=== PATIENT | female | born 1945 | race Caucasian/White ===

== ENCOUNTER 2017-09-24 12:17 | Emergency (ER) | payer OTHER ==
--- NOTE | 2017-09-24 14:29 | EDPHYS ---
Physician Documentation [facility] Name: Carmina Salcido Age: 72 yrs Sex: Female : 1945 Arrival Date: 09/24/2017 Time: 12:19 Bed 26 Private MD: ED Physician Toan Rolon HPI: 09/24 16:30 This 72 yrs old Female presents to ER via Ambulatory with complaints of AFIB. snw 16:30 The patient or guardian reports airway noise, cough. Onset: The symptoms/episode snw began/occurred 1 week(s) ago, and became persistent. Associated signs and symptoms: Pertinent positives: rhinorrhea, Pertinent negatives: chest pain, palpitations. Severity of symptoms: At their worst the symptoms were moderate in the emergency department the symptoms are unchanged. The patient has experienced similar episodes in the past. The patient has been recently seen by a physician: an allergy/cessation systems outreach specialist, in the office, with similar presenting complaints, and was sent to the [facility] Emergency Department for further evaluation, of a. fib. Pt reports she called Dr. Larsen' office and she has a long hx of a. fib. Pt wants to leave ED and go get her medications for her current dx of bronchitic/sinusitis from Dr. Salguero. denies CP, palpitations. Historical: - Allergies: 12:36 PENICILLINS; lk1 - PMHx: 12:36 Atrial Fib; breast cancer; CHF; Hypertension; lk1 - PSHx: 12:36 Tonsillectomy; Hysterectomy; breast cancer; lk1 - Immunization history:: Adult Immunizations up to date. - Social history:: Smoking status: Patient/guardian denies using tobacco. ROS: 16:29 Constitutional: Negative for fever, chills, and weight loss, Eyes: Negative for injury, snw pain, redness, and discharge, ENT: Negative for injury, pain, and discharge, Neck: Negative for injury, pain, and swelling, Cardiovascular: Negative for chest pain, palpitations, and edema, Abdomen/GI: Negative for abdominal pain, nausea, vomiting, diarrhea, and constipation, Back: Negative for injury and pain, : Negative for injury, bleeding, discharge, and swelling, MS/Extremity: Negative for injury and deformity, Skin: Negative for injury, rash, and discoloration, Neuro: Negative for headache, weakness, numbness, tingling, and seizure. 16:29 Respiratory: Positive for cough, wheezing. Exam: 16:27 Constitutional: This is a well developed, well nourished patient who is awake, alert, snw and in no acute distress. Head/Face: Normocephalic, atraumatic. Eyes: Pupils equal round and reactive to light, extra-ocular motions intact. Lids and lashes normal. Conjunctiva and sclera are non-icteric and not injected. Cornea within normal limits. Periorbital areas with no swelling, redness, or edema. ENT: Nares patent. No nasal discharge, no septal abnormalities noted. Tympanic membranes are normal and external auditory canals are clear. Oropharynx with no redness, swelling, or masses, exudates, or evidence of obstruction, uvula midline. Mucous membranes moist. Neck: Trachea midline, no thyromegaly or masses palpated, and no cervical lymphadenopathy. Supple, full range of motion without nuchal rigidity, or vertebral point tenderness. No Meningismus. Chest/axilla: Normal chest wall appearance and motion. Nontender with no deformity. No lesions are appreciated. Abdomen/GI: Soft, non-tender, with normal bowel sounds. No distension or tympany. No guarding or rebound. No evidence of tenderness throughout. Back: No spinal tenderness. No costovertebral tenderness. Full range of motion. Skin: Warm, dry with normal turgor. Normal color with no rashes, no lesions, and no evidence of cellulitis. 16:27 MS/ Extremity: Pulses equal, no cyanosis. Neurovascular intact. Full, normal range of motion. Neuro: Awake and alert, GCS 15, oriented to person, place, time, and situation. Cranial nerves II-XII grossly intact. Motor strength 5/5 in all extremities. Sensory grossly intact. Cerebellar exam normal. Normal gait. Psych: Awake, alert, with orientation to person, place and time. Behavior, mood, and affect are within normal limits. 16:27 Cardiovascular: Rate: tachycardic, Rhythm: irregularly irregular, Pulses: no pulse deficits are appreciated, Heart sounds: normal. 16:27 Respiratory: the patient does not display signs of respiratory distress, Respirations: normal, Breath sounds: are clear throughout, bronchitic cough. Vital Signs: 12:36 BP 168 / 100; Pulse 132; Resp 16; Temp 98.3; Pulse Ox 96% ; Weight 97.98 kg (R); Height lk1 5 ft. 5 in. (165.10 cm) (R); Pain 0/10; 13:16 BP 141 / 108; Pulse 107; Resp 20; Pulse Ox 95% on R/A; aj1 14:20 BP 150 / 98; Pulse 102; Resp 20; Pulse Ox 95% on R/A; aj1 12:36 Body Mass Index 35.94 (97.98 kg, 165.10 cm) lk1 MDM: 13:41 Patient medically screened. snw 16:29 Data reviewed: vital signs, nurses notes. Data interpreted: Pulse oximetry: on room air snw is 95 %. Interpretation: acceptable. Counseling: I had a detailed discussion with the patient and/or guardian regarding: the historical points, exam findings, and any diagnostic results supporting the discharge/admit diagnosis, the presence of at least one elevated blood pressure reading (>120/80) during this emergency department visit, the need for outpatient follow up, to return to the emergency department if symptoms worsen or persist or if there are any questions or concerns that arise at home. Special discussion: I have referred the patient to see his PCP for further evaluation of high blood pressure. Based on the history and exam findings, there is no indication for further emergent testing or inpatient evaluation. I discussed with the patient/guardian the need to see the administrative support associate for further evaluation of the symptoms. I discussed with the patient/guardian the need to see the primary care provider for further evaluation of the symptoms. Administered Medications: No medications were administered Disposition: 09/25 06:15 Co-signature as Attending Physician, Toan Rolon MD. Disposition: 09/24/17 14:28 Discharged to Home. 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 - Condition is Stable. - Discharge Instructions: Acute Bronchitis, How to Use an Inhaler. - Medication Reconciliation Form, Thank You Letter, Antibiotic Education, Prescription Opioid Use form. - Follow up: Private Physician; When: 1 - 2 days; Reason: Recheck today's complaints, Continuance of care, Re-evaluation by your physician. Follow up: Emergency Department; When: As needed; Reason: Worsening of condition. Signatures: Jess Samuels, HULL SORTER-C HULL SORTER-Csnw Deysi Jc, RN RN aa5 Manisha Lopez RN RN lk1 Toan Rolon MD MD gs Corrections: (The following items were deleted from the chart) 09/24 14:45 14:28 09/24/2017 14:28 Discharged to Home. 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 Condition is Stable. Forms are Medication Reconciliation Form, Thank You Letter, Antibiotic Education, Prescription Opioid Use. Follow up: Private Physician; When: 1 - 2 days; Reason: Recheck today's complaints, Continuance of care, Re-evaluation by your physician. Follow up: Emergency Department; When: As needed; Reason: Worsening of condition. snw
--- NOTE | 2017-09-24 14:29 | ER ---
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 I was at the allergy doctor this morning and they found me to be in a-fib again. I haven't been in that rhythm for years and they wanted me to get checked out. Transition of care: patient was not received from another setting of care. Onset of symptoms is unknown. Initial Sepsis Screen: Does the patient meet any 2 criteria? No. Patient's initial sepsis screen is negative. Does the patient have a suspected source of infection? No. Patient's initial sepsis screen is negative. Care prior to arrival: None. 12:33 Method Of Arrival: Ambulatory lk1 12:33 Acuity: ALANA 3 lk1 Triage Assessment: 12:36 General: Appears in no apparent distress. ill, Behavior is calm, cooperative, lk1 appropriate for age. Pain: Denies pain. Respiratory: Airway is patent Respiratory effort is even, unlabored, Respiratory pattern is regular, symmetrical, Sputum is thick, brown green. Historical: - Allergies: 12:36 PENICILLINS; lk1 - PMHx: 12:36 Atrial Fib; breast cancer; CHF; Hypertension; lk1 - PSHx: 12:36 Tonsillectomy; Hysterectomy; breast cancer; lk1 - Immunization history:: Adult Immunizations up to date. - Social history:: Smoking status: Patient/guardian denies using tobacco. Screenin:23 Abuse screen: Denies threats or abuse. Denies injuries from another. Nutritional aj1 screening: No deficits noted. Tuberculosis screening: No symptoms or risk factors identified. Assessment: 12:54 Reassessment: Spoke with Dr. Salguero. He told me that he spoke with Dr. Larsen, and was aj1 told that the patient is chronically in A-Fib, and requests that the patient call him back at his office. Patient was told and will call right now. 13:23 General: Appears in no apparent distress. comfortable, Behavior is calm, cooperative, aj1 appropriate for age. Pain: Denies pain. Neuro: Level of Consciousness is awake, alert, obeys commands, Oriented to person, place, time, situation, Speech is normal, Facial symmetry appears normal. Cardiovascular: Heart tones S1 S2 present Patient's skin is warm and dry. Rhythm is irregular Chest pain is denied. Respiratory: Reports cough that is productive, Airway is patent Respiratory effort is even, unlabored, Respiratory pattern is regular, symmetrical, Breath sounds are coarse bilaterally. GI: No signs and/or symptoms were reported involving the gastrointestinal system. : No signs and/or symptoms were reported regarding the genitourinary system. EENT: Reports nasal congestion nasal discharge sinus pressure. Derm: No signs and/or symptoms reported regarding the dermatologic system. Skin is pink, warm \T\ dry. normal. Musculoskeletal: No signs and/or symptoms reported regarding the musculoskeletal system. Circulation, motion, and sensation intact. 14:20 Reassessment: Patient appears in no apparent distress at this time. No changes from aj1 previously documented assessment. Patient and/or family updated on plan of care and expected duration. Pain level reassessed. Patient is alert, oriented x 3, equal unlabored respirations, skin warm/dry/pink. 14:43 Reassessment: Patient is alert, oriented x 3, equal unlabored respirations, skin aa5 warm/dry/pink. Vital Signs: 12:36 BP 168 / 100; Pulse 132; Resp 16; Temp 98.3; Pulse Ox 96% ; Weight 97.98 kg (R); Height lk1 5 ft. 5 in. (165.10 cm) (R); Pain 0/10; 13:16 BP 141 / 108; Pulse 107; Resp 20; Pulse Ox 95% on R/A; aj1 14:20 BP 150 / 98; Pulse 102; Resp 20; Pulse Ox 95% on R/A; aj1 12:36 Body Mass Index 35.94 (97.98 kg, 165.10 cm) lk1 ED Course: 12:19 Patient arrived in ED. sb2 12:35 Triage completed. lk1 12:38 Arm band placed on right wrist. lk1 12:54 Kyara Richardson, RN is Primary Nurse. aj1 13:23 Patient has correct armband on for positive identification. aj1 13:23 No provider procedures requiring assistance completed. aj1 13:34 Jess Samuels FNP-C [facility]. snw 13:34 Toan Rolon MD is Attending Physician. snw 14:43 Patient did not have IV access during this emergency room visit. aa5 Administered Medications: No medications were administered Outcome: 14:28 Discharge ordered by . snw 14:43 Discharged to home ambulatory, with significant other. aa5 14:43 Condition: stable 14:43 Discharge instructions given to patient, significant other, Instructed on discharge instructions, follow up and referral plans. Demonstrated understanding of instructions, follow-up care. 14:45 Patient left the ED. aa5 Signatures: Kyara Richardson RN RN aj1 Jess Samuels FNP-C [employer]W MEMBER-Csnw Deysi Jc RN RN aa5 Manisha Lopez RN RN lk1 Loyda Marquez sb2
--- NOTE | 2017-09-24 19:48 | EKG ---
Test Date: 2017-09-24 Test Time: 12:51:44 Kiln Packer: RAFAEL MEASUREMENT RESULTS: Intervals: Rate: 117 IA: QRSD: 138 QT: 354 QTc: 493 [place]: P: IA: QRS: -51 T: 160 INTERPRETIVE STATEMENTS: Wide QRS rhythm with occasional premature ventricular complexes and fusion complexes Right bundle branch block Left anterior fascicular block Bifascicular block Left ventricular hypertrophy with repolarization abnormality Abnormal ECG Compared to ECG 04/04/2017 06:36:44 Uncertain supraventricular rhythm now present Fusion complex(es) now present Left anterior fascicular block now present Bifascicular block now present Early repolarization now present Atrial fibrillation no longer present Myocardial infarct finding no longer present Electronically Signed On 09-24-17 19:47:11 CDT by Clay Larsen
== END 2017-09-24 14:45 | disposition home or self-care (01) ==
LOC: ER 12:17
DX: J40 Bronchitis, not specified as acute or chronic (principal); Z71.1 Person with feared health complaint in whom no diagnosis is made; Z88.0 Allergy status to penicillin
CPT/HCPCS: 93005; 99281

== ENCOUNTER 2019-06-27 16:37 | Emergency (ER) | payer OTHER ==
--- OUTSIDE RECORDS SUMMARY | 2019-06-27 16:38 | XMS REPORT ---
:1945 [facility] Address [address] [place] [address] [place] [id number] Care Team Providers Name Role Phone Unavailable Unavailable Unavailable Problems This patient has no known problems. Allergies, Adverse Reactions, Alerts This patient has no known allergies or adverse reactions. Medications This patient has no known medications.
[2019-06-27] MEDS ORDERED: NA CHLORIDE 0.9% 500 ML ONE (17:44)
[2019-06-27] MEDS ORDERED: ACETAMINOPHEN 500 MG TAB ONE (17:44)
[2019-06-27 17:52] LABS: Absolute Lymphocytes (CBC) 0.4 K/uL (0.7-4.9); Hematocrit 39.2 % (36.0-45.0); Lymphocytes % 7.5 % (15.3-44.8); MPV 8.4 fL (7.6-11.3); RBC Red Blood Cell Count 4.14 M/uL (3.86-4.86)
--- NOTE | 2019-06-27 17:56 | RAD REPORT ---
EXAM DESCRIPTION: RAD - Chest Single View - 06/27/2019 5:31 pm CLINICAL HISTORY: COUGH COMPARISON: Chest Single View dated 04/03/2017 TECHNIQUE: AP portable chest image was obtained 06/27/2019 5:31 pm . FINDINGS: No peripheral mass or consolidation. Chronic interstitial lung pattern matches comparison. Severity of baseline pattern could mask early edema or infiltrate. Patient has cardiomegaly. Vascula ture is mildly prominent but similar to comparison. Trachea is midline. No measurable pleural effusio n and no pneumothorax. No acute bony abnormality seen. No acute aortic findings suspected. IMPRESSION: Chronic interstitial lung pattern without peripheral mass or consolidation. Cardiomegaly similar to comparison. Severity of chronic disease could mask early interstitial edema or infiltrate.
[2019-06-27 18:04] LABS: Potassium 4.2 mmol/L (3.5-5.1)
--- NOTE | 2019-06-27 18:47 | EDPHYS ---
Physician Documentation [facility] Name: Carmina Salcido Age: 73 yrs Sex: Female : 1945 Arrival Date: 06/27/2019 Time: 16:39 Bed 25 Private MD: Ananth Luong E ED Physician Chadd Cameron HPI: 06/27 17:09 This 73 yrs old Female presents to ER via Wheelchair with complaints of Cough.rn 17:09 The patient or guardian reports cough. rn 17:09 Onset: The symptoms/episode began/occurred yesterday. Severity of symptoms: At their rn worst the symptoms were mild, in the emergency department the symptoms are unchanged. Modifying factors: The symptoms are alleviated by nothing, the symptoms are aggravated by nothing. The patient has experienced similar episodes in the past. Reports cough since yesterday, reports sometimes gets allergy problems with cough like this and usually goes away with zithromax. Was not aware of fever until arrival. No hemoptysis. . Historical: - Allergies: 17:08 PENICILLINS; iw - Home Meds: 17:08 Flonase 50 mcg/actuation nasal spsn 2 sprays once daily [Active]; lansoprazole 30 mg iw oral cpDR 1 cap once daily [Active]; potassium chloride 10 mEq Oral cpER 2 caps once daily [Active]; losartan 100 mg Oral tab 1 tab once daily [Active]; metoprolol succinate 100 mg oral Tb24 1 tab once daily [Active]; Pradaxa 150 mg oral cap 1 cap 2 times per day [Active]; torsemide 20 mg oral tab 1 tab once daily [Active]; glipizide 5 mg Oral tab 1 tab 2 times per day [Active]; - PMHx: 17:08 Atrial Fib; breast cancer; CHF; Hypertension; iw - PSHx: 17:08 Hysterectomy; Mastectomy, Right; iw - Immunization history:: Adult Immunizations not up to date. - Coronavirus screen:: The patient has NOT traveled to [place] in the past 14 days. Proceed with normal triage process as indicated. - Social history:: Smoking status: Patient denies any tobacco usage or history of. - Family history:: not pertinent. - Ebola Screening: : Patient negative for fever greater than or equal to 101.5 degrees Fahrenheit, and additional compatible Ebola Virus Disease symptoms Patient denies exposure to infectious person Patient denies travel to an Ebola-affected area in the 21 days before illness onset No symptoms or risks identified at this time. - Hospitalizations: : No recent hospitalization is reported. ROS: 17:09 Constitutional: + fever Eyes: Negative for injury, pain, redness, and discharge, Neck: rn Negative for injury, pain, and swelling, Cardiovascular: Negative for chest pain, palpitations, and edema, Respiratory: + cough Abdomen/GI: Negative for abdominal pain, nausea, vomiting, diarrhea, and constipation, MS/Extremity: Negative for injury and deformity, Skin: Negative for injury, rash, and discoloration, Neuro: Negative for headache, weakness, numbness, tingling, and seizure. Exam: 17:09 Constitutional: This is a well developed, well nourished patient who is awake, alert, rn and in no acute distress. Head/Face: Normocephalic, atraumatic. ENT: dry MM, no stridor or swelling Cardiovascular: tachycardic, irregular Respiratory: + crackles bilaterally, mild tachypnea, no retractions Abdomen/GI: soft, non-tender MS/ Extremity: Pulses equal, no cyanosis. Neurovascular intact. Full, normal range of motion. Equal circumference. Neuro: Awake and alert, GCS 15, oriented to person, place, time, and situation. Cranial nerves II-XII grossly intact. Motor strength 5/5 in all extremities. Sensory grossly intact. Vital Signs: 16:55 BP 167 / 98; Pulse 117; Resp 20; Temp 102.0; Pulse Ox 96% on R/A; Weight 90.72 kg; iw Height 5 ft. 5 in. (165.10 cm); Pain 0/10; 18:30 BP 161 / 92; Pulse 108; Resp 18; Temp 100.9; Pulse Ox 96% on R/A; vc 16:55 Body Mass Index 33.28 (90.72 kg, 165.10 cm) iw MDM: 16:52 Patient medically screened. rn 18:45 Differential Diagnosis: Bronchitis Influenza Upper Respiratory Infection Viral Syndrome rn Pneumonia. Data reviewed: vital signs, nurses notes, lab test result(s), radiologic studies, plain films, and as a result, I will discharge patient. Counseling: I had a detailed discussion with the patient and/or guardian regarding: the historical points, exam findings, and any diagnostic results supporting the discharge/admit diagnosis, lab results, radiology results, the need for outpatient follow up, to return to the emergency department if symptoms worsen or persist or if there are any questions or concerns that arise at home. Response to treatment: the patient's symptoms have mildly improved after treatment, and as a result, I will discharge patient. Special discussion: I discussed with the patient/guardian in detail that at this point there is no indication for admission to the hospital. It is understood, however, that if the symptoms persist or worsen the patient needs to return immediately for re-evaluation. ED course: Pt with influenza A, no pneumonia on CXR, states feels much better after fluids, no oxygen requirement, denies dyspnea. Offered observation given flu and age, patient requests to go home, promises to return if worsens. . 06/27 16:59 Order name: CBC with Diff; Complete Time: 18:07 rn 06/27 16:59 Order name: Basic Metabolic Panel; Complete Time: 18:27 rn 06/27 16:59 Order name: Procalcitonin rn 06/27 16:59 Order name: Flu; Complete Time: 18:36 rn 06/27 16:59 Order name: Blood Culture Adult (2) rn 06/27 16:59 Order name: Lactate rn 06/27 16:59 Order name: IV Start; Complete Time: 17:49 rn 06/27 16:59 Order name: XRAY Chest (1 view) rn Administered Medications: 17:49 Drug: Tylenol 1000 mg Route: PO; vc 18:15 Follow up: Response: No adverse reaction; Temperature is decreased vc 17:49 Drug: NS 0.9% 500 ml Route: IV; Rate: bolus; Site: left forearm; vc 18:50 Drug: Tamiflu 75 mg Route: PO; vc 18:50 Follow up: Response: Medication administered at discharge. vc Disposition: 06/27/19 18:46 Discharged to Home. Impression: Influenza due to identified novel influenza A virus. - Condition is Stable. - Discharge Instructions: Influenza, Adult. - Prescriptions for Tamiflu 75 mg Oral Capsule - take 1 capsule by ORAL route every 12 hours for 5 days; 10 capsule. - Medication Reconciliation Form, Thank You Letter, Antibiotic Education, Prescription Opioid Use form. - Follow up: Private Physician; When: 1 - 2 days; Reason: Recheck today's complaints, Re-evaluation by your physician. - Problem is new. - Symptoms have improved. Signatures: Dispatcher [employer] EDEse Wagoner RN RN iw Nieto, Roman, MD MD rn Calcote, Vanessa, RN RN vc Corrections: (The following items were deleted from the chart) 19:03 18:46 06/27/2019 18:46 Discharged to Home. Impression: Influenza due to identified vc novel influenza A virus. Condition is Stable. Forms are Medication Reconciliation Form, Thank You Letter, Antibiotic Education, Prescription Opioid Use. Follow up: Private Physician; When: 1 - 2 days; Reason: Recheck today's complaints, Re-evaluation by your physician. Problem is new. Symptoms have improved. rn
--- NOTE | 2019-06-27 18:47 | ER ---
Nurse's Notes [facility] Name: Carmina Salcido Age: 73 yrs Sex: Female : 1945 Arrival Date: 06/27/2019 Time: 16:39 Bed 25 Private MD: Ananth Luong E Diagnosis: Influenza due to identified novel influenza A virus Presentation: 06/27 16:56 Presenting complaint: Presenting complaint: Patient states: was sent from Dr. Daisy STOVALL iw office for productive cough and persistent tachycardia, crackles on lung exam, pt has hx of afib. 17:01 Transition of care: patient was not received from another setting of care. Onset of iw symptoms was June 27, 2019. Risk Assessment: Do you want to hurt yourself or someone else? Patient reports no desire to harm self or others. Initial Sepsis Screen: Does the patient meet any 2 criteria? Temp <36.0*C (96.8*F)) or > 38.3*C (100.9*F). HR > 90 bpm. Does the patient have a suspected source of infection? Yes: Productive cough/pneumonia. Initial Sepsis Screen: If YES to both, name of provider notified: Chadd Cameron MD Care prior to arrival: None. 17:01 Method Of Arrival: Wheelchair iw 17:01 Acuity: ALANA 2 iw Triage Assessment: 17:15 General: Appears in no apparent distress. uncomfortable, ill, Behavior is calm, vc cooperative, appropriate for age. Pain: Complains of pain in generalized aches and pains. EENT: No signs and/or symptoms were reported regarding the EENT system. Neuro: Level of Consciousness is awake, alert, obeys commands, Oriented to person, place, time, situation. Cardiovascular: Patient's skin is warm and dry. Respiratory: Respiratory effort is even, unlabored, Respiratory pattern is regular, symmetrical. GI: No signs and/or symptoms were reported involving the gastrointestinal system. : No signs and/or symptoms were reported regarding the genitourinary system. Derm: Skin temperature is hot. Musculoskeletal: Circulation, motion, and sensation intact. Historical: - Allergies: 17:08 PENICILLINS; iw - Home Meds: 17:08 Flonase 50 mcg/actuation nasal spsn 2 sprays once daily [Active]; lansoprazole 30 mg iw oral cpDR 1 cap once daily [Active]; potassium chloride 10 mEq Oral cpER 2 caps once daily [Active]; losartan 100 mg Oral tab 1 tab once daily [Active]; metoprolol succinate 100 mg oral Tb24 1 tab once daily [Active]; Pradaxa 150 mg oral cap 1 cap 2 times per day [Active]; torsemide 20 mg oral tab 1 tab once daily [Active]; glipizide 5 mg Oral tab 1 tab 2 times per day [Active]; - PMHx: 17:08 Atrial Fib; breast cancer; CHF; Hypertension; iw - PSHx: 17:08 Hysterectomy; Mastectomy, Right; iw - Immunization history:: Adult Immunizations not up to date. - Coronavirus screen:: The patient has NOT traveled to [place] in the past 14 days. Proceed with normal triage process as indicated. - Social history:: Smoking status: Patient denies any tobacco usage or history of. - Family history:: not pertinent. - Ebola Screening: : Patient negative for fever greater than or equal to 101.5 degrees Fahrenheit, and additional compatible Ebola Virus Disease symptoms Patient denies exposure to infectious person Patient denies travel to an Ebola-affected area in the 21 days before illness onset No symptoms or risks identified at this time. - Hospitalizations: : No recent hospitalization is reported. Screenin:15 Abuse screen: Denies threats or abuse. Nutritional screening: No deficits noted. vc Tuberculosis screening: No symptoms or risk factors identified. Fall Risk No secondary diagnosis (0 pts). IV access (20 points). Gait- Weak (10 pts.). Total Jose Fall Scale indicates Low Risk Score (25-44 pts). Side Rails Up X 2 Placed close to Nursing Station Family Present and informed to notify staff if they need to leave bedside. Assessment: 17:15 General: Appears in no apparent distress. uncomfortable, ill, Behavior is calm, vc cooperative, appropriate for age. Pain: Complains of pain in generalized aches and pains. Neuro: Level of Consciousness is awake, alert, obeys commands. Cardiovascular: Patient's skin is warm and dry. Cardiovascular: Respiratory: Respiratory effort is even, unlabored, Respiratory pattern is regular, symmetrical. GI: No deficits noted. : No deficits noted. EENT: Throat coughing up clear mucus. Reports. Derm: No signs and/or symptoms reported regarding the dermatologic system. Derm: Derm: Skin temperature is warm. Musculoskeletal: No signs and/or symptoms reported regarding the musculoskeletal system. 17:22 Reassessment: Unable to get blood return from patients IV. Lab to come for lab draw. vc 17:30 Reassessment: emergency medical technician basic at bedside for lab draw. vc 18:30 Reassessment: Patient and/or family updated on plan of care and expected duration. Pain vc level reassessed. Patient is alert, oriented x 3, equal unlabored respirations, skin warm/dry/pink. Patient states feeling better. Patient states symptoms have improved. Vital Signs: 16:55 BP 167 / 98; Pulse 117; Resp 20; Temp 102.0; Pulse Ox 96% on R/A; Weight 90.72 kg; iw Height 5 ft. 5 in. (165.10 cm); Pain 0/10; 18:30 BP 161 / 92; Pulse 108; Resp 18; Temp 100.9; Pulse Ox 96% on R/A; vc 16:55 Body Mass Index 33.28 (90.72 kg, 165.10 cm) iw ED Course: 16:39 Patient arrived in ED. rg4 16:40 Ananth Luong MD is Private Physician. rg4 16:50 Trice Acosta, RHONDA is Primary Nurse. vc 16:52 Chadd Cameron MD is Attending Physician. rn 16:55 Arm band placed on. iw 17:00 Patient has correct armband on for positive identification. vc 17:04 Triage completed. iw 17:06 Missed attempt(s): 20 gauge in left antecubital area. vc 17:10 Missed attempt(s): 22 gauge in left antecubital area. vc 17:20 Inserted saline lock: 20 gauge in left forearm, using aseptic technique. vc 17:42 Flu and/or RSV swab sent to lab. tm3 17:48 XRAY Chest (1 view) In Process Unspecified. EDMS 18:46 No provider procedures requiring assistance completed. vc 19:00 IV discontinued, intact, bleeding controlled, No redness/swelling at site. Pressure vc dressing applied. Administered Medications: 17:49 Drug: Tylenol 1000 mg Route: PO; vc 18:15 Follow up: Response: No adverse reaction; Temperature is decreased vc 17:49 Drug: NS 0.9% 500 ml Route: IV; Rate: bolus; Site: left forearm; vc 18:50 Drug: Tamiflu 75 mg Route: PO; vc 18:50 Follow up: Response: Medication administered at discharge. vc Outcome: 18:46 Discharge ordered by . rn 19:00 Discharged to home via wheelchair, with significant other. vc 19:00 Condition: improved 19:00 Discharge instructions given to patient, significant other, Instructed on discharge instructions, follow up and referral plans. medication usage, Demonstrated understanding of instructions, follow-up care, medications, Prescriptions given X 1. 19:03 Patient left the ED. vc Signatures: Dispatcher [employer] EDMS Quinton Beal tm3 Ese June RN RN iw Chadd Cameron MD MD rn Garcia, Rubi rg4 Trice Acosta RN RN vc Corrections: (The following items were deleted from the chart) 17:04 16:56 Presenting complaint: [facility]
[2019-06-27] MEDS ORDERED: OSELTAMIVIR 75 MG CAP ONE (18:59)
[2019-06-27 19:30] VITALS: BP 167/98; TEMP 102; O2SAT 96
== END 2019-06-27 19:03 | disposition home or self-care (01) ==
LOC: ER 16:37
DX: J10.1 Influenza due to other identified influenza virus with other respiratory manifestations (principal); I10 Essential (primary) hypertension; I50.9 Heart failure, unspecified; I48.91 Unspecified atrial fibrillation; Z88.0 Allergy status to penicillin; Z85.3 Personal history of malignant neoplasm of breast; Z90.11 Acquired absence of right breast and nipple
CPT/HCPCS: 87040 ×2; 85025; 80048; 36415; 83605; 84145; 87804 ×2; 71045; 99284; J7040

== ENCOUNTER 2020-03-28 12:15 | Observation (INO) | payer OTHER ==
--- OUTSIDE RECORDS SUMMARY | 2020-03-28 12:19 | XMS REPORT | Continuity of Care Document ---
:1945 Author Organization [facility] t Address [address] [place] [address] Dr. Gunderson [address] [place] [id number] Care Team Providers Name Role Phone Unavailable Unavailable Unavailable Problems This patient has no known problems. Allergies, Adverse Reactions, Alerts This patient has no known allergies or adverse reactions. Medications This patient has no known medications. Procedures This patient has no known procedures. Results This patient has no known results.
[2020-03-28] MEDS ORDERED: NA CHLORIDE 0.9% 1,000 ML ONE (13:27)
--- NOTE | 2020-03-28 13:33 | RAD REPORT ---
EXAM DESCRIPTION: RAD - Chest Single View - 03/28/2020 1:21 pm CLINICAL HISTORY: COUGH Chest pain. COMPARISON: Chest Single View dated 06/27/2019; Chest Single View dated 04/03/2017; Breast Vac Assist BX w/US Guid dated 10/13/2013; RAD CHEST PA AND LAT (2 VIEWS) dated 10/31/2013; LYMPHOSCINTIGRAPHY date d 11/02/2013; MAMMO DIGITAL DIAG LT UNI WCAD dated 10/11/2013 FINDINGS: Portable technique limits examination quality. Mild interstitial pulmonary edema. The heart is moderately enlarged size. No displaced fractures. IMPRESSION: Mild CHF.
[2020-03-28 13:36] LABS: ALT/SGPT 101 U/L (12-78); AST/SGOT 76 U/L (15-37); Albumin 3.5 g/dL (3.4-5.0); Alkaline Phosphatase 120 U/L (45-117); BUN Blood Urea Nitrogen 42 mg/dL (7-18); Bicarbonate 27 mmol/L (21-32); Bilirubin Direct 0.4 mg/dL (0-0.2); Bilirubin Total 0.9 mg/dL (0.2-1.0); Glucose Level 167 mg/dL (74-106); Magnesium 2.6 mg/dL (1.8-2.4); NT PRO-BNP 1108 pg/mL (<125); Potassium 4.4 mmol/L (3.5-5.1); Protein, Total 7.3 g/dL (6.4-8.2); Sodium Level 138 mmol/L (136-145); Troponin (Emerg Dept Use Only) < 0.02 ng/mL (0.0-0.045)
[2020-03-28 13:55] LABS: Basophils % 0.4 % (0-1.3); Hematocrit 37.6 % (36.0-45.0); MPV 8.9 fL (7.6-11.3); RBC Red Blood Cell Count 3.94 M/uL (3.86-4.86)
[2020-03-28 14:01] LABS: Protime INR 1.27
[2020-03-28 14:43] LABS: Thyroid Stimulating Hormone 5.08 uIU/mL (0.360-3.740)
--- NOTE | 2020-03-28 15:12 | EDPHYS ---
Physician Documentation [facility] Name: Carmina Salcido Age: 74 yrs Sex: Female : 1945 Arrival Date: 03/28/2020 Time: 12:17 Bed 14 Private MD: JAMES Physician Keith Gonzalez HPI: 03/28 15:03 This 74 yrs old Female presents to ER via Wheelchair with complaints of epi Abnormal EKG. 15:03 The patient has shortness of breath at rest, with light activity. Onset: The epi symptoms/episode began/occurred just prior to arrival. Duration: The symptoms are chronic, are continuous. The patient's shortness of breath has no apparent modifying factors. The patient presents with a history of irregular heart beat. Context: The symptoms occur at rest. Onset: The symptoms/episode began/occurred 1 week(s) ago. Duration: The patient or guardian reports multiple episodes, that are intermittent. Associated signs and symptoms: Pertinent positives: non-productive cough. Historical: - Allergies: 12:49 PENICILLINS; ca1 - PMHx: 12:49 Atrial Fib; breast cancer; CHF; Hypertension; ca1 - PSHx: 12:49 Hysterectomy; Mastectomy, Right; ca1 - Immunization history:: Adult Immunizations up to date, Flu vaccine is up to date. - Social history:: Smoking status: Patient denies any tobacco usage or history of. - Family history:: not pertinent. ROS: 15:03 Constitutional: Negative for fever, chills, and weight loss, Eyes: Negative for injury, epi pain, redness, and discharge, ENT: Negative for injury, pain, and discharge, Neck: Negative for injury, pain, and swelling, Abdomen/GI: Negative for abdominal pain, nausea, vomiting, diarrhea, and constipation, Back: Negative for injury and pain, : Negative for injury, bleeding, discharge, and swelling, MS/Extremity: Negative for injury and deformity, Skin: Negative for injury, rash, and discoloration, Neuro: Negative for headache, weakness, numbness, tingling, and seizure, Psych: Negative for depression, anxiety, suicide ideation, homicidal ideation, and hallucinations, Allergy/Immunology: Negative for hives, rash, and allergies, Endocrine: Negative for neck swelling, polydipsia, polyuria, polyphagia, and marked weight changes, Hematologic/Lymphatic: Negative for swollen nodes, abnormal bleeding, and unusual bruising. 15:03 Cardiovascular: Positive for palpitations. 15:03 Respiratory: Positive for cough, shortness of breath, at rest. Exam: 15:03 Constitutional: This is a well developed, well nourished patient who is awake, alert, epi and in no acute distress. Head/Face: Normocephalic, atraumatic. Eyes: Pupils equal round and reactive to light, extra-ocular motions intact. Lids and lashes normal. Conjunctiva and sclera are non-icteric and not injected. Cornea within normal limits. Periorbital areas with no swelling, redness, or edema. ENT: Nares patent. No nasal discharge, no septal abnormalities noted. Tympanic membranes are normal and external auditory canals are clear. Oropharynx with no redness, swelling, or masses, exudates, or evidence of obstruction, uvula midline. Mucous membranes moist. Neck: Trachea midline, no thyromegaly or masses palpated, and no cervical lymphadenopathy. Supple, full range of motion without nuchal rigidity, or vertebral point tenderness. No Meningismus. Chest/axilla: Normal chest wall appearance and motion. Nontender with no deformity. No lesions are appreciated. Abdomen/GI: Soft, non-tender, with normal bowel sounds. No distension or tympany. No guarding or rebound. No evidence of tenderness throughout. Back: No spinal tenderness. No costovertebral tenderness. Full range of motion. Female : Normal external genitalia. Skin: Warm, dry with normal turgor. Normal color with no rashes, no lesions, and no evidence of cellulitis. MS/ Extremity: Pulses equal, no cyanosis. Neurovascular intact. Full, normal range of motion. Neuro: Awake and alert, GCS 15, oriented to person, place, time, and situation. Cranial nerves II-XII grossly intact. Motor strength 5/5 in all extremities. Sensory grossly intact. Cerebellar exam normal. Normal gait. Psych: Awake, alert, with orientation to person, place and time. Behavior, mood, and affect are within normal limits. 15:03 Cardiovascular: Rate: bradycardic, Rhythm: irregular, Pulses: Pulses are 4+ in bilateral radial, brachial, femoral, popliteal, posterior tibial and and dorsalis pedis arteries.. Heart sounds: normal, Edema: is not appreciated, JVD: is noted bilaterally, to 1 cm. 16:31 ECG was reviewed by the Attending Physician. epi 16:33 ECG was reviewed by the Attending Physician. epi Vital Signs: 12:43 BP 201 / 78; Pulse 40; Resp 20; Temp 98.0(TE); Pulse Ox 99% on R/A; Weight 99.79 kg ca1 (R); Height 5 ft. 5 in. (165.10 cm); Pain 0/10; 13:00 Pulse 36 MON; ca1 13:29 BP 180 / 64; Pulse 35; Resp 16 S; Pulse Ox 100% on R/A; ca1 14:30 BP 179 / 98; Pulse 79; Resp 16 S; Pulse Ox 100% on R/A; ca1 15:30 BP 181 / 86; Pulse 76; Resp 16 S; Pulse Ox 100% on R/A; ca1 16:30 BP 176 / 103; Pulse 75; Resp 19 S; Pulse Ox 100% on R/A; ca1 17:13 BP 170 / 108; Pulse 88; Resp 19 S; Pulse Ox 100% on R/A; ca1 18:10 BP 180 / 104; Pulse 89; Resp 18 S; Pulse Ox 97% on R/A; ca1 19:00 BP 165 / 97; Pulse 90; Resp 16 S; Pulse Ox 99% on R/A; ca1 20:07 BP 159 / 85; Pulse 82; Resp 20 S; Pulse Ox 100% on R/A; ca1 12:43 Body Mass Index 36.61 (99.79 kg, 165.10 cm) ca1 MDM: 12:55 Patient medically screened. epi 15:08 Differential diagnosis: Anemia CHF exacerbation, Chronic Obstructive Pulmonary Disease epi arrythmia, Myocardial Infarction pneumonia, pulmonary edema, reactive airway disease. Antibiotic administration: Not indicated. The patient's Wells Deep Vein Thrombosis Score was calculated as follows: Total Score: 0-2 Pts- Low Risk. The patient's pulmonary embolism risk score was calculated as follows: Total Score: 0-2 points. This patient was found to be at low risk for a pulmonary embolism by using the Well's assessment criteria. Immunization status: Pneumococcal vaccine: Influenza vaccine: Data reviewed: vital signs, nurses notes, lab test result(s), EKG, radiologic studies, plain films. Data interpreted: personnel monitor: rate is 41 beats/min, rhythm is atrial fibrillation, atrial flutter. Test interpretation: by ED physician or midlevel provider: ECG, plain radiologic studies. Counseling: I had a detailed discussion with the patient and/or guardian regarding: the historical points, exam findings, and any diagnostic results supporting the discharge/admit diagnosis, the presence of at least one elevated blood pressure reading (>120/80) during this emergency department visit, lab results, radiology results, the need for further work-up and treatment in the hospital. 03/28 12:56 Order name: Basic Metabolic Panel; Complete Time: 14:08 [facility] 03/28 12:56 Order name: CBC with Diff; Complete Time: 14: [facility] 03/28 12:56 Order name: LFT's; Complete Time: 14: [facility] 03/28 12:56 Order name: Magnesium; Complete Time: 14: [facility] 03/28 12:56 Order name: NT PRO-BNP; Complete Time: 14:08 [facility] 03/28 12:56 Order name: PT-INR; Complete Time: 15:02 [facility] 03/28 12:56 Order name: Troponin (emerg Dept Use Only); Complete Time: 14: [facility] 03/28 12:56 Order name: XRAY Chest (1 view); Complete Time: 14: [facility] 03/28 14:06 Order name: TSH; Complete Time: 15:02 [facility] 03/28 14:44 Order name: T4 Free; Complete Time: 15:02 [facility] 03/28 15:17 Order name: Urine Culture [facility] 03/28 15:18 Order name: Urine Dipstick--Ancillary (enter results) em1 03/28 12:56 Order name: EKG; Complete Time: 12:57 [facility] 03/28 12:56 Order name: Cardiac monitoring; Complete Time: 13: [facility] 03/28 12:56 Order name: EKG - Nurse/Tech; Complete Time: 13: [facility] 03/28 12:56 Order name: IV Saline Lock; Complete Time: 13: [facility] 03/28 12:56 Order name: Labs collected and sent; Complete Time: 13: [facility] 03/28 12:56 Order name: O2 Per Protocol; Complete Time: 13: [facility] 03/28 12:56 Order name: O2 Sat Monitoring; Complete Time: 13: [facility] 03/28 12:56 Order name: Urine Dipstick-Ancillary (obtain specimen); Complete Time: 15:17 epi EC:31 Rate is 41 beats/min. Rhythm is irregular. QRS [place] is Normal. RI interval is normal. epi QRS interval is normal. QT interval is normal. No Q waves. T waves are Normal. No ST changes noted. Clinical impression: Atrial Flutter. Interpreted by me. Reviewed by me. 16:33 Rate is 81 beats/min. Rhythm is irregularly irregular. QRS [place] is Normal. RI interval epi is normal. QRS interval is normal. QT interval is normal. No Q waves. T waves are Normal. No ST changes noted. Clinical impression: Atrial Fibrillation. Interpreted by me. Reviewed by me. Administered Medications: Discontinued: NS 0.9% 1000 ml IV at 125 ml/hr continuous 13:12 Drug: NS 0.9% 1000 ml Route: IV; Rate: 125 ml/hr; Site: right antecubital; ca1 14:08 Follow up: IV Status: Order to discontinue infusion ca1 15:12 Drug: Pepcid 20 mg Route: IVP; Site: left antecubital; ca1 16:24 Follow up: Response: No adverse reaction ca1 15:14 Drug: Lasix 20 mg Route: IVP; Site: left antecubital; ca1 16:24 Follow up: Response: No adverse reaction ca1 15:21 Drug: Rocephin 1 grams Route: IV; Rate: per protocol; Site: left antecubital; ca1 15:35 Follow up: Response: No adverse reaction; IV Status: Completed infusion ca1 16:47 Drug: Pradaxa 150 mg Route: PO; ca1 20:09 Follow up: Response: No adverse reaction ca1 Disposition: 03/28/20 15:11 Hospitalization ordered by Angel Landry for Observation. Preliminary diagnosis are Atrial fibrillation and flutter - with SVR, Unspecified combined systolic (congestive) and diastolic (congestive) heart failure. - Bed requested for Telemetry/MedSurg (observation). - Status is Observation. ca1 - Condition is Fair. - Problem is new. - Symptoms have improved. Signatures: Dispatcher [employer] Randi Fajardo RN RN dw Keith Gonzalez MD MD cha Acob, Cheryl, RN RN ca1 Corrections: (The following items were deleted from the chart) 18:40 15:11 Hospitalization Ordered by Angel Landry for Observation. Preliminary diagnosis dw is Atrial fibrillation and flutter - with SVR; Unspecified combined systolic (congestive) and diastolic (congestive) heart failure. Bed requested for Telemetry/MedSurg (observation). Status is Observation. Condition is Fair. Problem is new. Symptoms have improved. epi 20:23 18:40 03/28/2020 15:11 Hospitalization Ordered by Angel Landry for Observation. ca1 Preliminary diagnosis is Atrial fibrillation and flutter - with SVR; Unspecified combined systolic (congestive) and diastolic (congestive) heart failure. Bed requested for Telemetry/MedSurg (observation). Status is Observation. Condition is Fair. Problem is new. Symptoms have improved. dw
--- NOTE | 2020-03-28 15:12 | ER ---
Nurse's Notes [facility] Name: Carmina Salcido Age: 74 yrs Sex: Female : 1945 Arrival Date: 03/28/2020 Time: 12:17 Bed 14 Private MD: Diagnosis: Atrial fibrillation and flutter-with SVR;Unspecified combined systolic (congestive) and diastolic (congestive) heart failure Presentation: 03/28 12:43 Chief complaint: Patient states: I just left my regular check up appointment with Dr. skyler Luong and they did an EKG and it was abnormal. Coronavirus screen: Client denies travel out of the [place] in the last 14 days. Ebola Screen: No symptoms or risks identified at this time. 12:43 Method Of Arrival: Wheelchair ca1 12:48 Initial Sepsis Screen: Does the patient meet any 2 criteria? No. Patient's initial ca1 sepsis screen is negative. Does the patient have a suspected source of infection? No. Patient's initial sepsis screen is negative. Risk Assessment: Do you want to hurt yourself or someone else? Patient reports no desire to harm self or others. Onset of symptoms was March 28, 2020. 12:48 Acuity: ALANA 2 ca1 Triage Assessment: 12:49 General: Appears in no apparent distress. comfortable, Behavior is calm, cooperative, ca1 appropriate for age. Pain: Denies pain. EENT: No deficits noted. No signs and/or symptoms were reported regarding the EENT system. Neuro: Level of Consciousness is awake, alert, obeys commands, Oriented to person, place, time, situation. Cardiovascular: Denies chest pain, Heart tones S1 S2 present Capillary refill < 3 seconds Patient's skin is warm and dry. Rhythm is sinus bradycardia. Respiratory: Airway is patent Respiratory effort is even, unlabored, Respiratory pattern is regular, symmetrical, Breath sounds are clear bilaterally. GI: Abdomen is round non-distended, Bowel sounds present X 4 quads. Abd is soft and non tender X 4 quads. : No signs and/or symptoms were reported regarding the genitourinary system. Derm: Skin is intact, is healthy with good turgor, Skin is pink, warm \T\ dry. Musculoskeletal: Circulation, motion, and sensation intact. Capillary refill < 3 seconds. Historical: - Allergies: 12:49 PENICILLINS; ca1 - PMHx: 12:49 Atrial Fib; breast cancer; CHF; Hypertension; ca1 - PSHx: 12:49 Hysterectomy; Mastectomy, Right; ca1 - Immunization history:: Adult Immunizations up to date, Flu vaccine is up to date. - Social history:: Smoking status: Patient denies any tobacco usage or history of. - Family history:: not pertinent. Screenin:51 Abuse screen: Denies threats or abuse. Denies injuries from another. Nutritional ca1 screening: No deficits noted. Tuberculosis screening: No symptoms or risk factors identified. Fall Risk IV access (20 points). Assessment: 12:51 Reassessment: See triage notes. ca1 12:53 Reassessment: Notified Dr. Gonzalez of Pt's HR. ca1 13:29 Reassessment: Patient appears in no apparent distress at this time. No changes from ca1 previously documented assessment. Patient and/or family updated on plan of care and expected duration. Pain level reassessed. Patient is alert, oriented x 3, equal unlabored respirations, skin warm/dry/pink. 14:40 Reassessment: Patient appears in no apparent distress at this time. Patient and/or ca1 family updated on plan of care and expected duration. Pain level reassessed. Patient is alert, oriented x 3, equal unlabored respirations, skin warm/dry/pink. 15:30 Reassessment: Patient appears in no apparent distress at this time. Patient and/or ca1 family updated on plan of care and expected duration. Pain level reassessed. Patient is alert, oriented x 3, equal unlabored respirations, skin warm/dry/pink. 16:25 Reassessment: Patient appears in no apparent distress at this time. Patient and/or ca1 family updated on plan of care and expected duration. Pain level reassessed. Patient is alert, oriented x 3, equal unlabored respirations, skin warm/dry/pink. 17:13 Reassessment: Patient appears in no apparent distress at this time. Patient and/or ca1 family updated on plan of care and expected duration. Pain level reassessed. Patient is alert, oriented x 3, equal unlabored respirations, skin warm/dry/pink. 18:15 Reassessment: Patient appears in no apparent distress at this time. Patient and/or ca1 family updated on plan of care and expected duration. Pain level reassessed. Patient is alert, oriented x 3, equal unlabored respirations, skin warm/dry/pink. 19:04 Reassessment: Patient appears in no apparent distress at this time. Patient is alert, ca1 oriented x 3, equal unlabored respirations, skin warm/dry/pink. 19:08 Reassessment: [phone], Cecily, daughter. ca1 20:07 Reassessment: Patient appears in no apparent distress at this time. No changes from ca1 previously documented assessment. Patient and/or family updated on plan of care and expected duration. Pain level reassessed. Vital Signs: 12:43 BP 201 / 78; Pulse 40; Resp 20; Temp 98.0(TE); Pulse Ox 99% on R/A; Weight 99.79 kg ca1 (R); Height 5 ft. 5 in. (165.10 cm); Pain 0/10; 13:00 Pulse 36 MON; ca1 13:29 BP 180 / 64; Pulse 35; Resp 16 S; Pulse Ox 100% on R/A; ca1 14:30 BP 179 / 98; Pulse 79; Resp 16 S; Pulse Ox 100% on R/A; ca1 15:30 BP 181 / 86; Pulse 76; Resp 16 S; Pulse Ox 100% on R/A; ca1 16:30 BP 176 / 103; Pulse 75; Resp 19 S; Pulse Ox 100% on R/A; ca1 17:13 BP 170 / 108; Pulse 88; Resp 19 S; Pulse Ox 100% on R/A; ca1 18:10 BP 180 / 104; Pulse 89; Resp 18 S; Pulse Ox 97% on R/A; ca1 19:00 BP 165 / 97; Pulse 90; Resp 16 S; Pulse Ox 99% on R/A; ca1 20:07 BP 159 / 85; Pulse 82; Resp 20 S; Pulse Ox 100% on R/A; ca1 12:43 Body Mass Index 36.61 (99.79 kg, 165.10 cm) ca1 ED Course: 12:17 Patient arrived in ED. ag5 12:41 Josie Almeida, RHONDA is Primary Nurse. ca1 12:49 Triage completed. ca1 12:49 Arm band placed on right wrist. EKG completed in triage. Results shown to MD. ca1 12:51 Patient has correct armband on for positive identification. Placed in gown. Bed in low ca1 position. Call light in reach. Side rails up X2. tube operator on. Pulse ox on. NIBP on. Warm blanket given. 12:55 Keith Gonzalez MD is Attending Physician. epi 13:09 Initial lab(s) drawn, by me, sent to lab. Inserted saline lock: 20 gauge in right ca1 antecubital area, using aseptic technique. Blood collected. 13:21 XRAY Chest (1 view) In Process Unspecified. EDNM 15:10 Angel Landry is Hospitalizing Provider. epi 18:43 No provider procedures requiring assistance completed. Patient admitted, IV remains in ca1 place. Administered Medications: Discontinued: NS 0.9% 1000 ml IV at 125 ml/hr continuous 13:12 Drug: NS 0.9% 1000 ml Route: IV; Rate: 125 ml/hr; Site: right antecubital; ca1 14:08 Follow up: IV Status: Order to discontinue infusion ca1 15:12 Drug: Pepcid 20 mg Route: IVP; Site: left antecubital; ca1 16:24 Follow up: Response: No adverse reaction ca1 15:14 Drug: Lasix 20 mg Route: IVP; Site: left antecubital; ca1 16:24 Follow up: Response: No adverse reaction ca1 15:21 Drug: Rocephin 1 grams Route: IV; Rate: per protocol; Site: left antecubital; ca1 15:35 Follow up: Response: No adverse reaction; IV Status: Completed infusion ca1 16:47 Drug: Pradaxa 150 mg Route: PO; ca1 20:09 Follow up: Response: No adverse reaction ca1 Outcome: 15:11 Decision to Hospitalize by Provider. epi 20:13 Admitted to Tele accompanied by tech, via wheelchair, room 405, with chart, Report ca1 called to RHONDA You 20:14 Condition: stable ca1 20:14 Instructed on the need for admit. 20:23 Patient left the ED. ca1 Signatures: Dispatcher [employer] EDNM Keith Gonzalez MD MD cha Acob, Cheryl RN RN ca1 Neeta Erwin ag5 Corrections: (The following items were deleted from the chart) 12:49 12:43 Pulse 40bpm; Resp 20bpm; Pulse Ox 99% RA; Temp 98.0F Temporal; 99.79 kg Reported; ca1 Height 5 ft. 5 in.; BMI: 36.6; Pain 0/10; ca1 14:41 14:40 BP 179 / 98; Pulse 79bpm; Resp 16bpm; Spontaneous; Pulse Ox 100% RA; ca1 ca1
[2020-03-28] MEDS ORDERED: FAMOTIDINE 20 MG/2 ML VIAL IV ONE (15:38)
[2020-03-28] MEDS ORDERED: FUROSEMIDE 20 MG/ 2ML VIAL ONE (15:38)
[2020-03-28] MEDS ORDERED: CEFTRIAXONE/SWI 1gm 1 GM/10 ML SYR ONE (15:38)
[2020-03-28 16:10] LABS: Urine Blood 1+ (NEG); Urine Glucose NEGATIVE (NEG); Urine Protein 1+ (NEG); Urine Specific Gravity <1.005 (1.005-1.030)
[2020-03-28] MEDS ORDERED: DABIGATRAN 150 MG CAP PO ONE (17:00)
--- NOTE | 2020-03-28 17:02 | P.HP ---
Certification for Inpatient Patient admitted to: Observation With expected LOS: <2 Midnights Practitioner: I am a practitioner with admitting privileges, knowledge of patient current condition, hospital course, and medical plan of care. Services: Services provided to patient in accordance with Admission requirements found in Title 42 Section 412.3 of the Code of Federal Regulations Patient History Date of Service: 03/28/20 Reason for admission: Abnormal EKG History of Present Illness: 74-year-old woman with a history of chronic atrial fibrillation on anticoagulation was referred to the emergency department from her PCPs office due to slow heart rate and abnormal EKG. She was in her PCPs office for wellness examination. Patient's heart rate by EKG done at her PCPs office was 40. Patient's heart rate was ranging from 35-40 in the emergency department. She takes Toprol-XL 100 mg daily. The EKG demonstrated atrial fibrillation with slow ventricular rate. Dr. Henriquez-cook pressure was contacted who recommended to stop the metoprolol, hospitalized and monitor her heart rate. Her chest x-ray showed mild pulmonary edema. Patient was given a dose of IV Lasix in the ED. She is hospitalized for further management. Allergies Penicillins Allergy (Verified 10/31/13 10:17) Rash metronidazole [From Flagyl] Adverse Reaction (Verified 04/04/17 18:27) Rash Home Medications: Dabigatran Etexilate Mesylate [Pradaxa] 150 mg PO BID 04/03/17 Loratadine 10 mg PO DAILY 04/03/17 Losartan Potassium 100 mg PO DAILY 04/03/17 Metoprolol Succinate [Toprol Xl] 100 mg PO DAILY 04/03/17 Potassium Chloride 20 meq PO BID 04/03/17 Torsemide [Demadex] 20 mg PO DAILY 04/03/17 glipiZIDE [Glipizide] 5 mg PO BID 04/03/17 Acyclovir Tab [Zovirax*] 800 mg PO SEECOM #35 tablet 04/07/17 - Past Medical/Surgical History Diabetic: No -: CHF -: Chronic atrial fibrillation -: Hypertension -: Mastectomy -: Hysterectomy -: Tubal Ligation -: Tonsillectomy - Family History Mother -: Hypertension Father -: Hypertension Notes: Alzheimers - Social History Smoking Status: Never smoker Alcohol use: No CD- Drugs: No Caffeine use: Yes Review of Systems Other: Except as documented, all other systems reviewed and negative. Physical Examination - Physical Exam General: Alert, In no apparent distress HEENT: Atraumatic, Mucous membr. moist/pink, Sclerae nonicteric Neck: Supple, JVD not distended Respiratory: Clear to auscultation bilaterally, Normal air movement Cardiovascular: No edema, Regular rate/rhythm, Normal S1 S2 Capillary refill: <2 Seconds Gastrointestinal: Normal bowel sounds, Soft and benign, No tenderness Musculoskeletal: No swelling, No tenderness Integumentary: No rashes Neurological: Normal speech, Normal strength at 5/5 x4 extr - Studies Laboratory Data (last 24 hrs) 03/28/20 13:08: PT 14.9 H, INR 1.27 03/28/20 13:08: WBC 5.6, Hgb 12.4, Hct 37.6, Plt Count 197 03/28/20 13:08: Sodium 138, Potassium 4.4, BUN 42 H, Creatinine 1.71 H, Glucose 167 H, Magnesium 2.6 H, Total Bilirubin 0.9, AST 76 H, ALT 101 H, Alkaline Phosphatase 120 H Assessment and Plan - Problems (Diagnosis) (1) Bradycardia Current Visit: Yes Status: Acute (2) Atrial fibrillation Onset Date: 04/05/17 Current Visit: No Status: Chronic Qualifiers: Atrial fibrillation type: chronic (3) Elevated liver enzymes Current Visit: Yes Status: Acute (4) Hypertension Onset Date: 04/05/17 Current Visit: No Status: Chronic Qualifiers: Hypertension type: essential hypertension Qualified Code(s): I10 - Essential (primary) hypertension - Plan Placed under observation. Cardiac monitoring Trend troponin Consult cardiology. Hold metoprolol per cardiology recommendation. Monitor and optimize electrolytes. Obtain liver ultrasound to further evaluate elevated liver enzymes. Continue losartan for hypertension Hydralazine p.r.n. for BP spikes. - Advance Directives Does patient have a Living Will: No Does patient have a Durable POA for Healthcare: No
--- NOTE | 2020-03-28 20:10 | CON ---
Date of Consultation: 03/28/2020 Reason For Consultation: Abnormal EKG. History Of Present Illness: This 74-year-old female was at a primary care physician where she had an EKG, her heart rate was in the low 30s, and she was sent to the emergency room. The patient denies having any dizziness or syncope. No chest pain or shortness of breath. No nausea or vomiting. She feels well otherwise. Past Medical History: Atrial fibrillation, breast cancer, CHF, and hypertension. Medications: Refer to reconciliation sheet for detailed list. Allergies: PENICILLIN AND METRONIDAZOLE. Past Surgical History: Hysterectomy and mastectomy. Family History: No mention of coronary disease or cancer. Review of Systems: All systems reviewed and they were negative except as mentioned in the HPI. Physical Examination: Vital Signs: Reviewed. Head and Neck: Pupils are equal, reactive to light. Intact eye movements. No JVD. No cervical lym phadenopathy. Neck is supple. Thyroid is not enlarged. Lungs: Clear to auscultation bilaterally. No rhonchi, rales, or crackles. No accessory muscle use. Heart: Regular rate and rhythm. No extra sounds. Abdomen: Soft, nontender. Bowel sounds positive. No organomegaly. No masses or hernia. No rigidi ty or rebound. Extremities: No clubbing or cyanosis. Intact pulses. Skin: No rash. Neurologic: Alert, awake, oriented x3. No acute focal deficits appreciated. LYMPH NODES: No cervical or axillary lymphadenopathy. Investigations: Creatinine 1.7, glucose 137, troponin less than 0.02. TSH is 5.0. White blood cell count is 5.6, hemoglobin 12.4. Chest x-ray, mild CHF. Assessment/plan: 1.Bradycardia. EKG is reviewed. She had an atrial flutter with a slow ventricular response and the n repeated EKG later when the heart rate went up to the mid 80s, there was atrial fibrillation. At t his point, I recommended observation to cut down on beta-david and revaluate and maybe she will casandra efit from lower dose of beta-david. If she goes again into that level, pacemaker might be warrante d. Monitor on telemetry. Do serial sets of cardiac enzymes. Obtain echo if it was not done recentl y. 2.Congestive heart failure. Mild congestive heart failure. Recommend diuresis with IV Lasix and ob tain echo. Thank you for the consultation. SR/MODL Voice ID: [id number] Report ID: [id number]
[2020-03-28 20:35] VITALS: BMI 36.1
[2020-03-28] MEDS ORDERED: ACETAMINOPHEN 500 MG TAB PO PRN (20:53)
[2020-03-28] MEDS ORDERED: HYDRALAZINE HCL 20 MG/ML VIAL IV PRN (20:53)
[2020-03-29 06:14] LABS: Absolute Lymphocytes (CBC) 1.3 K/uL (0.7-4.9); Basophils % 0.9 % (0-1.3); Hematocrit 32.7 % (36.0-45.0); Lymphocytes % 20.8 % (15.3-44.8); MPV 8.7 fL (7.6-11.3); RBC Red Blood Cell Count 3.48 M/uL (3.86-4.86)
[2020-03-29 06:18] LABS: Albumin 2.9 g/dL (3.4-5.0); Bilirubin Total 0.8 mg/dL (0.2-1.0); Magnesium 2.4 mg/dL (1.8-2.4); Potassium 3.7 mmol/L (3.5-5.1); Protein, Total 6.3 g/dL (6.4-8.2)
[2020-03-29] MEDS ORDERED: POTASSIUM CL SA 10 MEQ TAB PO ONE (08:00)
[2020-03-29] MEDS ORDERED: LOSARTAN POTASSIUM 50 MG TABLET PO SCH (09:00)
[2020-03-29] MEDS ORDERED: DABIGATRAN 150 MG CAP PO SCH (09:00)
[2020-03-29] MEDS ORDERED: BETAMETHASONE DIPROPIONATE TOP SCH (09:00)
[2020-03-29] MEDS ORDERED: TORSEMIDE 20 MG TAB PO SCH (09:00)
[2020-03-29] MEDS ORDERED: MUPIROCIN 2% OINT 22GM TUBE TOP SCH (09:00)
[2020-03-29] MEDS ORDERED: BETAMETHASONE DIP 0.05% CREAM TOP SCH (09:00)
[2020-03-29] MEDS ORDERED: POTASSIUM CL SA 10 MEQ TAB PO SCH (09:00)
--- NOTE | 2020-03-29 09:02 | RAD REPORT ---
EXAM DESCRIPTION: US - Liver Only - 03/29/2020 8:51 am CLINICAL HISTORY: Elevated liver enzymes COMPARISON: Breast Vac Assist BX w/US Guid dated 10/13/2013 FINDINGS: The liver is mildly prominent in size.A mild fatty liver infiltration pattern is notedNo f ocal liver lesion or intrahepatic biliary dilatation.No evidence of portal vein thrombosis. The spleen measures 8 cm. IMPRESSION: Mild hepatomegaly with diffuse fatty liver infiltration.
[2020-03-29 09:44] VITALS: O2SAT 94
[2020-03-29] MEDS ORDERED: PNEUMOCOCCAL VACCINE 0.5 ML IMVAC ONE (10:00)
[2020-03-29] MEDS ORDERED: INFLUENZA VACCINE (for 3y+) 0.5 ML DOSE IMVAC ONE (10:00)
--- NOTE | 2020-03-29 11:20 | P.DS ---
Admission Date: 03/28/20 Discharge Date: 03/29/20 Disposition: ROUTINE DISCHARGE Discharge Condition: FAIR Reason for Admission: Abnormal EKG - Problems (1) Bradycardia Current Visit: Yes Status: Acute (2) Atrial fibrillation Onset Date: 04/05/17 Current Visit: No Status: Chronic Qualifiers: Atrial fibrillation type: chronic (3) Elevated liver enzymes Current Visit: Yes Status: Acute (4) Hypertension Onset Date: 04/05/17 Current Visit: No Status: Chronic Qualifiers: Hypertension type: essential hypertension Qualified Code(s): I10 - Essential (primary) hypertension Brief History of Present Illness: 74-year-old woman with a history of chronic atrial fibrillation on anticoagulation was referred to the emergency department from her PCPs office due to slow heart rate and abnormal EKG. She was in her PCPs office for wellness examination. Patient's heart rate by EKG done at her PCPs office was 40. Patient's heart rate was ranging from 35-40 in the emergency department. She was taking Toprol-XL 100 mg daily. The EKG demonstrated atrial fibrillation with slow ventricular rate. Dr. Henriquez-cellulose insulation helper was contacted who recommended to stop the metoprolol, hospitalized and monitor her heart rate. Her chest x-ray showed mild pulmonary edema. Patient was given a dose of IV Lasix in the ED. She is hospitalized for further management. Hospital Course: Patient was asymptomatic during the hospital stay. Troponin trended negative. Her heart rate increased to 110 without Toprol-XL. Patient was seen and evaluated by cellulose insulation helper-Dr. Henriquez. Dr. Parisi-patient's cellulose insulation helper was contacted who recommended resuming her metoprolol at half dose and follow up with him next week in the office. Regarding her elevated LFT. Liver ultrasound was performed which showed mild hepatomegaly and fatty liver. Her blood pressure was moderately high without the metoprolol. Anticipating her blood pressure to improve with resumption of the metoprolol. Vital Signs/Physical Exam: Temp Pulse Resp BP Pulse Ox 98.4 F 70 18 145/68 H 94 03/29/20 08:00 03/29/20 09:27 03/29/20 08:00 03/29/20 09:27 03/29/20 08:00 General: Alert, In no apparent distress HEENT: Mucous membr. moist/pink Neck: JVD not distended Respiratory: Clear to auscultation bilaterally, Normal air movement Cardiovascular: No edema, Normal S1 S2, Irregular heart rate/rhythm Gastrointestinal: Normal bowel sounds, Soft and benign Musculoskeletal: No swelling Neurological: Other (Nonfocal.) Laboratory Data at Discharge: WBC 6.5 K/uL (4.3-10.9) D 03/29/20 05:17 Hgb 10.9 g/dL (12.0-15.0) L 03/29/20 05:17 Hct 32.7 % (36.0-45.0) L 03/29/20 05:17 Plt Count 168 K/uL (152-406) 03/29/20 05:17 PT 14.9 SECONDS (9.5-12.5) H 03/28/20 13:08 INR 1.27 03/28/20 13:08 Sodium 144 mmol/L (136-145) 03/29/20 05:17 Potassium 3.7 mmol/L (3.5-5.1) 03/29/20 05:17 BUN 26 mg/dL (7-18) H 03/29/20 05:17 Creatinine 0.84 mg/dL (0.55-1.3) 03/29/20 05:17 Glucose 113 mg/dL (74-106) H 03/29/20 05:17 Phosphorus 3.0 mg/dL (2.5-4.9) 03/29/20 05:17 Magnesium 2.4 mg/dL (1.8-2.4) 03/29/20 05:17 Total Bilirubin 0.8 mg/dL (0.2-1.0) 03/29/20 05:17 AST 47 U/L (15-37) H 03/29/20 05:17 ALT 76 U/L (12-78) 03/29/20 05:17 Alkaline Phosphatase 93 U/L (45-117) 03/29/20 05:17 Troponin I 0.02 ng/mL (0.0-0.045) 03/29/20 01:24 Home Medications: Dabigatran Etexilate Mesylate [Pradaxa] 150 mg PO BID 04/03/17 Losartan Potassium 100 mg PO DAILY 04/03/17 Potassium Chloride 20 meq PO BID 04/03/17 Torsemide [Demadex] 20 mg PO DAILY 04/03/17 Betameth Dip 0.05% [Diprosone 0.05% OINTMENT*] 1 aleta TOP BID 03/29/20 Metoprolol Succinate [Toprol Xl] 50 mg PO DAILY #30 tab 03/29/20 Mupirocin 1 aleta TOP DAILY 03/29/20 New Medications: Metoprolol Succinate [Toprol Xl] 50 mg PO DAILY #30 tab Followup: Jack Vasquez PA [Primary Care Provider] - Odilon Parisi MD [ACTIVE - CAN ADMIT] - 1 Week
[2020-03-29 12:49] VITALS: BP 150/74; TEMP 98.8
--- NOTE | 2020-03-30 10:05 | EKG ---
Test Date: 2020-03-28 Test Time: 14:31:51 Guide [place]pine: GREG MEASUREMENT RESULTS: Intervals: Rate: 81 NV: QRSD: 150 QT: 424 QTc: 492 [place]: P: NV: QRS: -42 T: 76 INTERPRETIVE STATEMENTS: Atrial fibrillation Left axis deviation Right bundle branch block Voltage criteria for left ventricular hypertrophy Cannot rule out Septal infarct, age undetermined T wave abnormality, consider lateral ischemia or digitalis effect Abnormal ECG Compared to ECG 03/28/2020 12:44:23 Left-axis deviation now present Left anterior fascicular block no longer present Bifascicular block no longer present Myocardial infarct finding still present T-wave abnormality still present Possible ischemia still present Electronically Signed On 03-30-20 10:03:44 [employer]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
== END 2020-03-29 14:00 | disposition home or self-care (01) ==
LOC: ER 12:15 → ERHOLD 16:49 → 4TH 20:15
PROVIDERS: ADMIT Internal Medicine; ATTEND Internal Medicine
DX: R00.1 Bradycardia, unspecified (principal); I48.20 Chronic atrial fibrillation, unspecified; R74.8 Abnormal levels of other serum enzymes; R94.31 Abnormal electrocardiogram [ECG] [EKG]; Z20.828 Contact with and (suspected) exposure to other viral communicable diseases; K76.0 Fatty (change of) liver, not elsewhere classified; I11.0 Hypertensive heart disease with heart failure; I50.9 Heart failure, unspecified; Z85.3 Personal history of malignant neoplasm of breast
CPT/HCPCS: 96361; 93005 ×2; 87088; 85025 ×2; 87086; 80048; 36415; 83735 ×2; 84100; 85610; 80076; 84443; 81003; 84484 ×3; 84439; 80053; 83880; 71045; 76705; 94760 ×2; 96375; 96374; 99285; U0003; J1940; J0696; J7030; G0378 ×3

== ENCOUNTER 2020-11-02 07:37 | Emergency (ER) | payer OTHER ==
--- OUTSIDE RECORDS SUMMARY | 2020-11-02 07:40 | XMS REPORT | Continuity of Care Document ---
:1945 Author Organization [facility] t Address [address] [place] [address] Care Team Providers Name Role Phone Asked, Pcp Primary Care Physician Unavailable Terrence Yi MD Attending Clinician Merry ALDANA, F. Attending Clinician Brad EPPS Attending Clinician Duane Arriaga MD Attending Clinician Joyce Joshi Attending Clinician Cristian ALDANA Attending Clinician MD MERRY F. Attending Clinician Unavailable MERRY Admitting Clinician Unavailable MD MERRY F. Admitting Clinician Unavailable Payers Payer Name Policy Type Policy Effective Date Expiration Date Sour ce Number AETNA MEDICAREAETNA [id number] 2013 [place] MEDICARE HMO/PPO 00:00:00 [place] t [id number] -PresentHMO Problems Condition Condition Condition Status Onset Resolution Last Treating Co mments Source Name Details Category Date Date Treatment Clinician Date Tachycardi Tachycardi Disease Active [place] a a 2-17 [facility] 00:00: st 00 Allergies, Adverse Reactions, Alerts Allergy Allergy Status Severity Reaction(s) Onset Inactive Treating Comm ents Source Name Type Date Date Clinician Penicill Propensi Active Rash [place] ins ty to 2-17 [facility] adverse 00:00: st reaction 00 s to drug Family History Family Member Diagnosis Comments Start Date Stop Date Source Natural brother Cancer [facility] ethodist Natural father Mental illness [place] Sabian[place] Natural mother Hypertension [place] [facility]ian[facility] Natural sister Cancer [facility] thodist Social History Social Habit Start Date Stop Date Quantity Comments Source History SDOH [facility] Alcohol Std Drinks History SDOH [place] [facility] Alcohol Binge Alcohol intake 2020-07-16 2020-07-16 Lifetime [facility] thodist 00:00:00 00:00:00 non-drinker (finding) History SDOH 2020-06-28 2020-06-28 1 [facility] Alcohol Frequency 00:00:00 00:00:00 Sex [birth year] Yosef Triplett ethodist 00:00:00 00:00:00 Medications Ordered Filled Start Stop Current Ordering Indication Dosage Frequency Signature Comments Components Source Medication Medication Date Date Medication? Clinician (SIG) Name Name metoprolol No 50mg QD Take 1 [place] succinate 2-21 03-23 tablet (50 Met hodi XL 00:00: 23:59 mg total) st (TOPROL-XL) 00 :00 by mouth 50 mg 24 hr daily for tablet 30 days. metoprolol No 50mg QD Take 50 mg [facility] succinate 2-20 02-20 by mouth Metho di XL 12:25: 00:[address] (TOPROL-XL) 05 :00 Dose 25 mg 24 hr unknown tablet dabigatran No 150mg Q.5D Take 150 [place] etexilate 2-20 02-20 mg by Method[facility] (PRADAXA) 12:25: 00:[address] 75 mg 05 :00 (two) capsule times a day. Dose unknown potassium Yes 20meq Q.5D Take 20 [place] chloride 2-20 mEq by [facility] (K-DUR) 10 12:25: mouth 2 st MEQ CR 00 (two) tablet times a day. losartan-hy Yes 1{tbl} QD Take 1 [place] drochloroth 2-20 tablet by Met hodi iazide 12:25: mouth st (HYZAAR) 00 daily. 100-12.5 mg Dose per tablet unkown torsemide Yes 20mg QD Take 20 mg [place] (DEMADEX) 2-20 by mouth Method i 20 MG 12:25: daily. st tablet 00 dabigatran Yes 150mg Q.5D Take 1 Cheri yepez etexilate 2-20 capsule Methodi (PRADAXA) 00:00: ([address] 150 mg 00 total) by capsu mouth 2 (two) times a day. flecainide No 150mg Q.5D Take 1 Faith ston (TAMBOCOR) 06-29 tablet Method i 150 MG 00:00: 23:59 ([address] tablet 00 :00 total) by mouth every 12 (twelve) hours for 30 days. traMADoL acute pain 50mg Q6H Take 1 [facility] (Ultram) 50 06-29 tablet (50 M ethodi mg tablet 00:00: 23:59 mg total) st 00 :00 by mouth every 6 (six) hours as needed for moderate pain for up to 5 days .acute pain. minocycline No 100mg Q.5D Take 1 Saroj [place] (Minocin) 06-29 capsule Method i 100 MG 00:00: 23:59 ([address] capsule 00 :00 total) by mouth 2 (two) times a day for 3 days. Vital Signs Vital Name Observation Time Observation Value Comments Source Heart rate 2020-06-29 10:00:00 92 /min Yosef Hutchins Systolic blood 2020-06-29 08:00:00 128 mm[Hg] Von n Sabianism pressure Diastolic blood 2020-06-29 08:00:00 57 mm[Hg] [place] Sabianism pressure Respiratory rate 2020-06-29 08:00:00 21 /min Cheri Hutchins Oxygen saturation in 2020-06-29 08:00:00 96 /min Yosef Hutchins Arterial blood by Pulse oximetry Body temperature 2020-06-29 03:00:00 36.78 Sapna Cheri Hutchins Body height 2020-06-27 03:54:00 165.1 cm Yosef Hutchins Body weight 2020-06-26 23:50:00 99 kg Yosef Hutchins BMI 2020-06-26 23:50:00 36.32 kg/m2 Yosef Hutchins Procedures Procedure Date / Time Performing Clinician Source Performed POC GLUCOSE 2020-06-29 08:12:00 Bianka Montoya Met raphael XR CHEST 1 VW PORTABLE 2020-06-29 05:17:35 Zion Young POC GLUCOSE 2020-06-29 04:19:00 Bianka Montoya Met raphael ECG PRE/POST OP 2020-06-29 03:37:43 Jaime Foster Meth odist BASIC METABOLIC PANEL 2020-06-29 03:00:00 Zion Young HC COMPLETE BLD COUNT 2020-06-29 03:00:00 Zion Young W/AUTO DIFF IONIZED CALCIUM 2020-06-29 03:00:00 Zion Young ethodist ESTIMATED GFR 2020-06-29 03:00:00 Zion Young M ethodist MAGNESIUM LEVEL 2020-06-29 03:00:00 Zion Young ethodist POC GLUCOSE 2020-06-28 20:07:00 Bianka Montoya Met raphael HEMOGLOBIN & HEMATOCRIT 2020-06-28 18:00:00 Diandra Sher POC GLUCOSE 2020-06-28 16:12:00 Bianka Montoya Met raphael MAGNESIUM LEVEL 2020-06-28 12:40:00 Diandra Sher PHOSPHORUS LEVEL 2020-06-28 12:40:00 Diandra Sher n Sabianism IONIZED CALCIUM 2020-06-28 12:40:00 Diandra Sher POTASSIUM LEVEL 2020-06-28 12:40:00 Diandra Sher HC COMPLETE BLD COUNT 2020-06-28 12:40:00 Diandra Sher W/AUTO DIFF XR CHEST 1 VW PORTABLE 2020-06-28 10:54:32 Jaime Foster on Sabianism EP INSERTION PACEMAKER 2020-06-28 09:35:00 Jaime Foster on Sabianism PULSE GENERATOR WITH EXISTING LEADS POC GLUCOSE 2020-06-28 07:43:00 Bianka Montoya Met hodist POC GLUCOSE 2020-06-28 04:07:00 Bianka Montoya Met hodist XR CHEST 1 VW PORTABLE 2020-06-28 03:11:00 Zion Young BASIC METABOLIC PANEL 2020-06-28 00:55:00 Zion Young CBC WITH PLATELET AND 2020-06-28 00:55:00 Zion Young Sabianism DIFFERENTIAL IONIZED CALCIUM 2020-06-28 00:55:00 Zion Young M ethodist MAGNESIUM LEVEL 2020-06-28 00:55:00 Zion Young M ethodist ESTIMATED GFR 2020-06-28 00:55:00 Zion Young M ethodist MANUAL DIFFERENTIAL 2020-06-28 00:55:00 Zion Young on Sabianism POC GLUCOSE 2020-06-27 23:43:00 Bianka Montoya Met hodist POC GLUCOSE 2020-06-27 19:58:00 Bianka Montoya Met hodist POC GLUCOSE 2020-06-27 16:38:00 Bianka Montoya Met raphael CV CARDIAC PET STRESS TEST 2020-06-27 16:13:58 Celeste Salinas CV CARDIAC PET MYOCARDIAL 2020-06-27 16:13:58 Celeste Salinas PERFUSION IMAGING TTE COMPLETE, W CONTRAST, 2020-06-27 14:40:00 Celeste Salinas W DOPPLER ([id number]) POC GLUCOSE 2020-06-27 11:50:00 Bianka Montoya Met hodist POC GLUCOSE 2020-06-27 07:31:00 Bianka Montoya Met raphael XR CHEST 1 VW PORTABLE 2020-06-27 06:14:00 Celeste Salinas on Sabianism TROPONIN 2020-06-27 05:23:00 Celeste Salinas Meth odist ECG 12-LEAD 2020-06-27 04:08:00 Celeste Salinas Meth odist POC GLUCOSE 2020-06-27 03:50:00 Bianka Montoya Met raphael ABO AND RH CONFIRMATION 2020-06-27 01:15:00 SalinasCeleste POC GLUCOSE 2020-06-26 23:53:00 Merry Bianka GentileKurt Cotto hodist HC COMPLETE BLD COUNT 2020-06-26 23:40:00 Salinas, Celeste Hutchins W/AUTO DIFF PROTHROMBIN TIME WITH INR 2020-06-26 23:40:00 SalinasCeleste VITAMIN D 25 HYDROXY LEVEL 2020-06-26 23:40:00 Salinas, Celeste Hutchins PARTIAL THROMBOPLASTIN 2020-06-26 23:40:00 Salinas, Celeste Lua on Sabianism TIME (PTT) TROPONIN 2020-06-26 23:39:00 Salinas, Celeste Alejandro oddorian TYPE AND SCREEN 2020-06-26 23:39:00 Salinas, Celeste Alejandro oddorian MAGNESIUM LEVEL 2020-06-26 23:39:00 Salinas, Celeste khanna BASIC METABOLIC PANEL 2020-06-26 23:39:00 Salinas, Celeste Hutchins ESTIMATED GFR 2020-06-26 23:39:00 Salinas, Celeste Alejandro odist OR INSERT 2020-06-26 23:35:11 Crescencio, Meryclinton [facility] Meth oddorian CATH,ART,PERCUT,SHORTTERM LACTIC ACID LEVEL 2020-06-26 21:25:00 Nicko Yi URINE CULTURE 2020-06-26 17:38:00 Nicko Yi Ks thodist XR CHEST 1 VW PORTABLE 2020-06-26 17:32:07 Nicko Yi COVID-19 QUALITATIVE PCR 2020-06-26 17:04:00 Nicko Yi BLOOD CULTURE, AEROBIC & 2020-06-26 16:45:00 Nicko Yi ANAEROBIC HC COMPLETE BLD COUNT 2020-06-26 16:45:00 Nicko Yi W/AUTO DIFF COMPREHENSIVE METABOLIC 2020-06-26 16:45:00 Nicko Yi PANEL TROPONIN 2020-06-26 16:45:00 Salinas, Celeste [facility] Meth odist B NATRIURETIC PEPTIDE 2020-06-26 16:45:00 Nicko Yi THYROID STIMULATING 2020-06-26 16:45:00 Nicko Yi HORMONE T4, FREE 2020-06-26 16:45:00 Nicko Yi Ks thodist LACTIC ACID LEVEL 2020-06-26 16:45:00 Nicko Yi URINALYSIS SCREEN AND 2020-06-26 16:45:00 Nicko Yi MICROSCOPY, WITH REFLEX TO CULTURE ESTIMATED GFR 2020-06-26 16:45:00 Nicko Yi Ks thodist ECG ED PRELIMINARY 2020-06-26 16:43:41 Nicko Yi INTERPRETATION ECG 12-LEAD 2020-06-26 16:42:52 Nicko Yi Ks thodist ECG 12-LEAD 2020-06-26 16:42:00 Nicko Yi Ks thodist Plan of Care Planned Activity Planned Date Details Comments Source Future Scheduled 2020-12-08 INFLUENZA VACCINE [place] [facility] Sabianism Test 00:00:00 [code = INFLUENZA VACCINE] Future Scheduled 1995-08-18 BREAST CANCER [facility] thodist Test 00:00:00 SCREENING [code = BREAST CANCER SCREENING] Future Scheduled 1995-08-18 COLONOSCOPY SCREENING ton Sabianism Test 00:00:00 [code = COLONOSCOPY SCREENING] Future Scheduled 1995-08-18 SHINGLES VACCINES (#1) michele Sabianism Test 00:00:00 [code = SHINGLES VACCINES (#1)] Future Scheduled 1963-08-18 Hepatitis C screening [place] [facility] Test 00:00:00 (procedure) [code = 997879151] Future Scheduled 1957 COVID-19 VACCINE (1) Faith gomez Sabianism Test 00:00:00 [code = COVID-19 VACCINE (1)] Future Scheduled 1951-08-18 65+ PNEUMOCOCCAL [place] [facility]ianism Test 00:00:00 VACCINE (1 of 2 - PPSV23) [code = 65+ PNEUMOCOCCAL VACCINE (1 of 2 - PPSV23)] Encounters Start End Encounter Admission Attending Care Care Encounter Source Date/Time Date/Time Type Type Clinicians Facility Department ID 2020-06-26 2020-06-29 Inpatient MERRY, [facility] [id number] [place] 00:00:00 00:00:00 BIANKA [address] 2020-06-28 2020-06-28 Outpatient [facility] [id number] [place] 00:00:00 00:00:00 CELESTE [address] 2020-06-27 2020-06-27 Outpatient [facility] [id number] [place] 00:00:00 00:00:00 CELESTE [address] Results Test Description Test Test Results Result Source Time Comments Comments Electrophysiology 2020-07 TITLE OF [place] procedure -07 PROCEDURE:Dual-chamber Me thodist 15:51:5 pacemaker 5 placement.PREOPERATIVE DIAGNOSES:1. Symptomatic bradycardia.2. Sick sinus syndrome causing #1.3. Obesity.4. Paroxysmal atrial fibrillation.5. Remote bilateral mastectomy.POSTOPERATIV E DIAGNOSES:1. Symptomatic bradycardia.2. Sick sinus syndrome causing #1.3. Obesity.4. Paroxysmal atrial fibrillation.5. Remote bilateral mastectomy.PROCEDURE PERFORMED:Dual-chamber pacemaker placement.INDICATION FOR PROCEDURE:BRIEF HISTORY AND CLINICAL BACKGROUND:The patient comes up from [facility] at the behest of her referringcardiologist, Dr. Odilon Parisi. He informed me that she has intermittentatrial fibrillation, but at times, she develops a very slow heart rate. Duringwhich time, she admits and he has correlated profound weakness, shortness ofbreath, dizziness and presyncope, though no miya syncope. While on telemetryin the Emergency Room, she had periods of AFib with heart rates in the 120s lb944c, but also periods of what appeared to be complete heart block withjunctional escape with heart rates in the 30s. Consequent to these findings,she requires a permanent pacemaker for avoidance of symptomatic bradycardia aswell as to permit optimal management of her atrial fibrillation with RVR. Shecomes now for permanent pacemaker.PROCEDURE:Inf ormed consent was obtained. Intravenous antibiotics were infusedappropriately. The chest was prepped and draped in the usual sterile fashionand local anesthesia was achieved with 1% lidocaine. An upper extremityvenogram was performed to identify the location of the axillary and subclavianvein and access was achieved. Guide wires were introduced under fluoroscopicguidance and advanced into the inferior vena cava. Using a sharp knife, cautery, and blunt dissection, a pocket was formed belowthe plane of the pectoralis fascia. The RV and atrial leads were placed intothe venous system using standard technique. The RV pace/sense lead was placedinto the RV apex and tested. After the thresholds were deemed adequate the leadwas anchored in place. Maximum output pacing was performed to ensure that therewas no diaphragmatic stimulation, and none was seen. The lead was anchored inplace using 0-Ethibond sutures around the lead collar. A bipolar screw-in lead was affixed into the right atrium. Sensing and pacingthresholds were then performed. After they were found to be adequate, maximumoutput pacing was performed to ensure that there was no diaphragmaticstimulatio n, and none was seen. The lead was anchored in place using 0-Ethibondsutures around the lead collar. Fluoroscopy was repeated to ensure proper lead placement. The pacemaker pocketwas visually, manually, and radiographically inspected to ensure there were nogauze or sponges in the pocket. It was then washed using antibiotic solution. Gloves and drapes were changed as needed. The pacemaker generator packet wasthen opened and was attached to the leads and the set screws were tightened. Each lead was gently tugged upon to ensure it was affixed within the header. After proper pacemaker function was confirmed, the lead slack and pacemaker wereplaced in the pocket. The pacemaker was anchored to the pectoralis muscle using0-Ethibond suture. The skin incision was then closed in layers using 0-Vicrylsutures. Final skin closure was achieved with stainless steel eugenie and skinadhesive. COMPLICATIONS:None.FIND INGS:1. Estimated blood loss less than 10 mL.2. The pacemaker is a [employer] Accolade, model L311, serial #[id number]. The atrial lead is a 7840, serial #[id number]. Intrinsic P waves were low at0.5 to 1 millivolt.4. The ventricular lead is a 7841, serial #[id number]. Measured R waves nominal,pacing threshold was 0.5 volt at 0.4 milliseconds.CONCLUSION S:Successful dual-chamber pacemaker placement.RECOMMENDATIO NS:Resume antiarrhythmic drugs, rate controlling agents and oral anticoagulants anddischarge home in the next 24 to 36 hours. ECG Pre/Post Op-Tomorrow 2020-06-29 10:43:44 Test Item Value Reference Range Interpretation Comme nts Ventricular rate (test code = 253) 110 Atrial rate (test code = 255) 119 QRSD interval (test code = 260) 184 QT interval (test code = 264) 412 QTC interval (test code = 265) 557 QRS axis 1 (test code = 268) -58 T wave axis (test code = 270) 96 EKG impression (test code = 273) Atrial fibrillation with rapid john paul tricular response-Right bundle branch block-Left anterior fascicular block-^^^ Bifascicular block ^^^-Moderate voltage criteria for LVH, may be normal variant-Cannot rule out Anteroseptal infarct (cited on or before 26-JUN-2020)-Marked T wave abnormality, consider lateral ischemia-Abnormal ECG-In automated comparison with ECG of 27-JUN-2020 04:08,-QRS duration has increased-Serial changes of Anteroseptal infarct present- [facility] Chest 1 Vw [id number] 08:14:48Hm Interface, Radiology Results Incoming - 06/29/2020 8:17 AM CST EXAMINATION: XR CHEST 1 VW PORTABLECLINICAL HISTORY: f u ppmCOMPARISON:June 28, 2020 .IMPRESSION:1.Heart size and mediastinum are prominent although unchanged relative to prior. Transvenous pacemaker overlies left chest.2.Mild interstitial prominence in lungs bilaterally with improvement from prior. Findings likely relate to resolving edema.3.No pneumothorax.4.Both costophrenic sulci are blunted and may relate to small pleural effusions.IMMANUEL-Christine MatthewsistCv stress [id number] 06:44:58 Test Item Value Reference Range Interpretation Comments Resting HR (test code 98 = 7404769301) Resting BP (test code 140&60 = 9229853193) Peak MET Achieved 1 (test code = 6259940915) Protocol Name (test Lexiscan code = 5766885907) Time in Exercise 00:01:00 Phase (test code = 5481124201) Max Systolic BP (test 140 code = 6976470307) Max Diastolic BP 60 (test code = 4298608241) Max Heart Rate (test 126 code = 6870832433) Max Predicted Heart 146 Rate (test code = 5737472301) Target HR Formula (220 - Age)*100% (test code = 3488342851) Test Indication (test A-FIB code = 2677375831) Arrhy During Ex (test code = 1895309582) ECG Interp Before EX (test code = 2466110737) ECG Interp During Ex (test code = 5506572414) Ex Summary Comment (test code = 5058043287) Overall HR Response to Exercise (test code = 8684645641) Overall BP Response To Exercise (test code = 9371598217) Reason for Termination (test code = 9639514546) Stress Test Waveform interpreted in Impression (test code report associated with = 5519716053) image study. No interpretation is provided as part of this Stress ECG report.--Electronically Signed By Rosalino ALDANA, Blu Avery ([id number]), fan mail editor Kourtney Holland ([id number]) on 06/28/2020 6:44:56 AM [place] SabianismUrine [id number] 02:30:24 Test Item Value Reference Interpretation Comments Range Urine culture Streptococcus group A Specime n isolate (test B<10-3 cfu/mlThe Informatio nSpecimen code = 97569-5) performance Source: Urin eSpecimen characteristics of Site: [place] an catch this assay on this isolatewere validated by the Microbiology Laboratory at [facility]. This source has not been approved by the U.S. Food and Drug Administration. The results are not intended to be used as the sole means for clinical diagnosis or patient management. The Microbiology Laboratory is authorized under the clinical Laboratory Improvement Amendments of 1988 (CLIA-88) to perform high complexity testing. Lab Abnormal Interpretation (test code = 58189-4) [facility] Hospital[facility]CV Cardiac PET Myocardial Perfusion [id number] 17:45:26 Interface, Radiology Results In - 06/27/2020 5:45 PM CST See PDF file for full resultHouHill Country Memorial HospitalTransthoracic Echocardiogram Complete, (w Contrast, Strain and 3D if needed)2020-06-27 17:17:00Interface, Radiology Results In - 06/27/2020 5:18 PM CST Echocardiography Report [address] [address] Pat.Name: JOSEPH HODGES.ID: [id number] St.Date: 06/27/2020 Refer.MD: JAIME FOSTER MD Exam Time: 1:51:00 PM Study Type:Routine Echo Height: 65in Weight: 218lb BSA: 2.05 m2 Age: 4 1945,74Y Sex: FEMALE BP: 140/60 HR: 87 bpm Sonogrphr: Amber Galicia RDCS, RVTPat. Stat.:Inpatient Room: [facility] Study Status:Final Echo Event ID:[id number] Order ID: [id number] Reason for Study:Atrial FibrillationHistory / Cl inical:Atrial Fibrillation, Congestive Heart Failure,Diabetes, Hyperlipidemia, HypertensionProcedures: 2D Echo, Colorflow Doppler, Portable, Intravenous LumasonContrastRace: C SUMMARY: Suboptimal image quality; contrast used.LV size is normal.Normal average LV global longitudinal strain at -19%. Estimated EF is65-69%RV size is enlarged. RV systolic function is normal.LA volume is moderately enlarged. RAvolume is severely enlarged.Unable to assess diastolic function due to Tachycardia.Estimated PA systolic pressure is 29mmHg plus RA pressure. FINDINGS: LV: LV size is normal. Normal average LV global longitudinal strain at -19%. LV EF is normal. Overall wall motion is normal. Estimated EF is 65-69%RV: RV size is enlarged. RV systolic function is normal. RV wall motion is normal.LA: LA volume is moderately enlarged.RA: RA volume is severely enlarged.AO: Aortic root diameter is normal in size. Ascending aorta diameter is normal.ETIENNE: No pericardial effusion.AV: No structural AV abnormalities noted.MV: Mild mitral annular calcification.PV: No structural PV abnormalities noted.TV: No structural TV abnormalities noted. Mild tricuspid regurgitation Daniel: Unable to assess diastolic function due to Tachycardia.Other: Estimated PA systolic pressure is 29mmHg plus RA pressure. MEASUREMENTS:--- 2DParasternal Long [place] Ao An 2 cm LVPWd 1 cm Ao Rtd 3.3 cm Index 1.6 cm/m2 LA Ds 3.6 cm IVSd 0.9 cm RWT 0.4 LVIDd 4.9 cm Index 2.4 cm/m2 LV Mass 164.3 g (87- 129) LVIDs 3.2 cm LVM Index 80.1 g/m2 LV%fs 34.7 % LVOT 2.2 cm Right Ventricle RVIDd 5.5 cm (2.6-4.3)LA Sng Plane LA Area 24.7 cm2 (8.8-23.4) LA Vol 81.9 ml Index 40 ml/m2 LA LngAx 6.2cm RA Sng Plane RA Vol 142.5 ml Index 69.5 ml/m2 RA LngAx 6.9 cm RA Area 33.6 cm2 (8.3-19.5)LVOT LVOT Area 3.6 cm2 DOPPLERLVOT For Flow LVOT TVI 22.4 cm LVOTpkPG 6.2 mmHg LVOTpkVel 124.5 cm/s LVOTmnPG 2.7 mmHgLVOT LVOT SV 81.6 ml SVi 39.8 ml/b8Uffieb Valve MV pkE 151.2 cm/s (60-130)Left Ventricle LaSep Em 3.9 cm/s Signed 06/27/2020 05:17 PMCory Pandya M.D.[facility] MethodistECG 12 [id number] 10:29:57 Test Item Value Reference Range Interpretation Comments Ventricular rate (test 103 code = 253) QRSD interval (test 138 code = 260) QT interval (test code 396 = 264) QTC interval (test 518 code = 265) QRS axis 1 (test code -47 = 268) T wave axis (test code 144 = 270) EKG impression (test Atrial fibrillation code = 273) with rapid ventricular response-Right bundle branch block-Left anterior fascicular block-^^^ Bifascicular block ^^^-Minimal voltage criteria for LVH, may be normal variant ( R in aVL )-Anteroseptal infarct (cited on or before 26-JUN-2020)-T wave abnormality, consider lateral ischemia-Abnormal ECG- Yosef MethodistArterial Line [id number] 23:35:11Mery Prather 06/26/2020 11:36 PMArterial Line Insertion Date/Time: 06/26/2020 11:35 PMPerformed by: Aby Pratheruthorized by: Mery Prather Consent: Consent obtained: Verbal Consent given by: PatientIndications: Indications: hemodynamic monitoring and multiple ABGs Pre-procedure details: Skin preparation: 2% Chlorhexidine Preparation: Patient was prepped and draped in sterile fashion Anesthesia (see MAR for exact dosages): Anesthesia method: Local infiltration Local anesthetic: Lidocaine 2% w/o epiProcedure details: Location: L radial Valeriy's test performed: yes Avleriy's test abnormal: no Needle gauge: 20 G Placement technique: Seldinger Ultrasound guidance:yes Ultrasound guidance: images not saved electronically Number of attempts: 1 Transducer: waveform confirmed Post-procedure details: Post-procedure: Biopatch applied, sterile dressing applied and sutured Patient tolerance of procedure: Tolerated well, no immediate complicationsComments: Good waveform, HR 111/min and BP 181/72 mm Hg, dicrotic notch.Yosef MatthewsJfkoxmlanIVEE-HuR-3 (COVID-19) RNA [Presence] in Respiratory specimen by LAUREANO with probe [id number] 21:47:04 Test Item Value Reference Range Interpretation Comments SARS-CoV-2 (COVID-19) RNA Not detected Not-Detected [Presence] in Respiratory specimen by LAUREANO with probe detection (test code = 36442-3) ECG ED Preliminary Interpretation - Not an [id number] 16:43:41 Test Item Value Reference Range Interpretation Comments STEVE (test code = STEVE) Nicko Yi MD 07/16/2020 3:44 PME ED Preliminary Interpretation - Not an OrderPerformed by: Nicko Yi MDAuthorized by: Nicko Yi MD ECG reviewed by ED Physician in the absence of a leather cartridge belt maker: yes Interpretation: Interpretation: abnormal Rate: ECG rate: 40 ECG rate assessment: bradycardic Rhythm: Rhythm: atrial fibrillation QRS: QRS axis: LeftST segments: ST segments: Abnormal ST segment depression noted on lead: present.T waves: T waves: inverted Lab Interpretation Abnormal (test code = 21156-8) Yosef Hutchins
[2020-11-02 08:27] LABS: Absolute Lymphocytes (CBC) 1.1 K/uL (0.7-4.9); Basophils % 0.5 % (0-1.3); Hematocrit 36.9 % (36.0-45.0); Lymphocytes % 18.3 % (15.3-44.8); MPV 8.8 fL (7.6-11.3); RBC Red Blood Cell Count 3.95 M/uL (3.86-4.86)
[2020-11-02 08:29] LABS: Protime INR 1.17
--- NOTE | 2020-11-02 08:45 | ER ---
Nurse's Notes [facility] Name: Carmina Salcido Age: 75 yrs Sex: Female : 1945 Arrival Date: 11/02/2020 Time: 07:40 Bed 18 Private MD: Diagnosis: Epistaxis;Essential (primary) hypertension Presentation: 11/02 07:47 Chief complaint: Patient states: right sided nose bleed since yesterday after noon , is iw currently on pradaxa. Coronavirus screen: At this time, the client does not indicate any symptoms associated with coronavirus-19. Ebola Screen: Patient negative for fever greater than or equal to 101.5 degrees Fahrenheit, and additional compatible Ebola Virus Disease symptoms Patient denies exposure to infectious person. Patient denies travel to an Ebola-affected area in the 21 days before illness onset. No symptoms or risks identified at this time. Initial Sepsis Screen: Does the patient meet any 2 criteria? No. Patient's initial sepsis screen is negative. Does the patient have a suspected source of infection? No. Patient's initial sepsis screen is negative. Risk Assessment: Do you want to hurt yourself or someone else? Patient reports no desire to harm self or others. Onset of symptoms was November 01, 2020. 07:47 Method Of Arrival: Ambulatory iw 07:47 Acuity: ALANA 3 iw Historical: - Allergies: 07:51 PENICILLINS; iw - Home Meds: 07:51 losartan 100 mg oral tab 1 tab once daily [Active]; metoprolol succinate 50 mg oral iw Tb24 1 tab once daily [Active]; potassium chloride 10 mEq Oral cpER 1 cap 2 times per day [Active]; torsemide 20 mg oral tab 1 tab once daily [Active]; glipizide 5 mg Oral tab 1 tab once daily [Active]; Pradaxa 150 mg oral cap 1 cap 2 times per day [Active]; - PMHx: 07:51 Atrial Fib; breast cancer; CHF; Hypertension; iw - Immunization history:: Client reports receiving the 2nd dose of the Covid vaccine. - Social history:: Smoking status: Patient denies any tobacco usage or history of. - Family history:: not pertinent. Screenin:47 Abuse screen: Denies threats or abuse. Nutritional screening: No deficits noted. rb3 Tuberculosis screening: No symptoms or risk factors identified. Fall Risk None identified. Assessment: 07:47 General: Appears in no apparent distress. Behavior is calm, cooperative. Pain: Denies rb3 pain. Neuro: Level of Consciousness is awake, alert, obeys commands, Oriented to person, place, time, situation. Cardiovascular: Patient's skin is warm and dry. Respiratory: Airway is patent Respiratory effort is even, unlabored, Respiratory pattern is regular, symmetrical. GI: No signs and/or symptoms were reported involving the gastrointestinal system. : No signs and/or symptoms were reported regarding the genitourinary system. EENT: Reports Nose bleed right nare, started yesterday. Bleeding is minimal at this time. 08:09 Reassessment: Petroleum gauze placed at the bedside. rb3 09:00 Reassessment: Patient appears in no apparent distress at this time. Patient and/or rb3 family updated on plan of care and expected duration. Pain level reassessed. Patient is alert, oriented x 3, equal unlabored respirations, skin warm/dry/pink. 09:05 Reassessment: Discharge pending due to Dr. Gonzalez wanting the pt to be monitored rb3 longer to make sure the bleeding has stopped. 09:40 Reassessment: No bleeding noted at the right nare or in the back of her throat. rb3 Vital Signs: 07:47 BP 174 / 107; Pulse 124; Resp 18; Pulse Ox 97% on R/A; Weight 97.52 kg; Height 5 ft. 5 iw in. (165.10 cm); 08:15 BP 160 / 88; Pulse 104; Resp 17; Pulse Ox 95% on R/A; rb3 09:15 BP 156 / 78; Pulse 97; Resp 18; Pulse Ox 97% ; rb3 07:47 Body Mass Index 35.78 (97.52 kg, 165.10 cm) iw ED Course: 07:40 Patient arrived in ED. as 07:46 Brittani Morris, RN is Primary Nurse. rb3 07:47 Keith Gonzalez MD is Attending Physician. epi 07:47 Patient has correct armband on for positive identification. Bed in low position. Call rb3 light in reach. Side rails up X 1. Pulse ox on. NIBP on. Warm blanket given. 07:47 Arm band placed on right wrist. rb3 07:50 Triage completed. iw 08:00 Inserted saline lock: 22 gauge in left antecubital area, using aseptic technique. Blood rb3 collected. 09:55 No provider procedures requiring assistance completed. IV discontinued, intact, rb3 bleeding controlled, No redness/swelling at site. Pressure dressing applied. Administered Medications: No medications were administered Outcome: 08:44 Discharge ordered by . epi 09:55 Patient left the ED. rb3 09:55 Discharged to home ambulatory, with family. rb3 09:55 Condition: stable 09:55 Discharge instructions given to patient, Instructed on discharge instructions, follow up and referral plans. medication usage, Demonstrated understanding of instructions, follow-up care, medications, Prescriptions given X 1. Signatures: Keith Gonzalez MD MD cha Martinez, Amelia as Williams, Irene, RN RN Brittani Enamorado, RHONDA RN rb3
--- NOTE | 2020-11-02 08:45 | EDPHYS ---
Physician Documentation [facility] Name: Carmina Salcido Age: 75 yrs Sex: Female : 1945 Arrival Date: 11/02/2020 Time: 07:40 Bed 18 Private MD: JAMES Physician Keith Gonzalez HPI: 11/02 08:39 This 75 yrs old Female presents to ER via Ambulatory with complaints of Nose epi Bleed. 08:39 The patient presents with a nose bleed, that is apparently anterior, from the right epi nare. Onset: The symptoms/episode began/occurred 1 day(s) ago. Modifying factors: The symptoms are alleviated by nothing. the symptoms are aggravated by nothing. Associated signs and symptoms: The patient has no apparent associated signs or symptoms. Severity of symptoms: At their worst the symptoms were mild in the emergency department the symptoms are unchanged. The patient has not experienced similar symptoms in the past. Historical: - Allergies: 07:51 PENICILLINS; iw - Home Meds: 07:51 losartan 100 mg oral tab 1 tab once daily [Active]; metoprolol succinate 50 mg oral iw Tb24 1 tab once daily [Active]; potassium chloride 10 mEq Oral cpER 1 cap 2 times per day [Active]; torsemide 20 mg oral tab 1 tab once daily [Active]; glipizide 5 mg Oral tab 1 tab once daily [Active]; Pradaxa 150 mg oral cap 1 cap 2 times per day [Active]; - PMHx: 07:51 Atrial Fib; breast cancer; CHF; Hypertension; iw - Immunization history:: Client reports receiving the 2nd dose of the Covid vaccine. - Social history:: Smoking status: Patient denies any tobacco usage or history of. - Family history:: not pertinent. ROS: 08:39 Constitutional: Negative for fever, chills, and weight loss, Eyes: Negative for injury, epi pain, redness, and discharge, Neck: Negative for injury, pain, and swelling, Cardiovascular: Negative for chest pain, palpitations, and edema, Respiratory: Negative for shortness of breath, cough, wheezing, and pleuritic chest pain, Abdomen/GI: Negative for abdominal pain, nausea, vomiting, diarrhea, and constipation, Back: Negative for injury and pain, : Negative for injury, bleeding, discharge, and swelling, MS/Extremity: Negative for injury and deformity, Skin: Negative for injury, rash, and discoloration, Neuro: Negative for headache, weakness, numbness, tingling, and seizure, Psych: Negative for depression, anxiety, suicide ideation, homicidal ideation, and hallucinations, Allergy/Immunology: Negative for hives, rash, and allergies, Endocrine: Negative for neck swelling, polydipsia, polyuria, polyphagia, and marked weight changes, Hematologic/Lymphatic: Negative for swollen nodes, abnormal bleeding, and unusual bruising. 08:39 ENT: Positive for nose bleed. Exam: 08:39 Constitutional: This is a well developed, well nourished patient who is awake, alert, epi and in no acute distress. Head/Face: Normocephalic, atraumatic. Eyes: Pupils equal round and reactive to light, extra-ocular motions intact. Lids and lashes normal. Conjunctiva and sclera are non-icteric and not injected. Cornea within normal limits. Periorbital areas with no swelling, redness, or edema. Neck: Trachea midline, no thyromegaly or masses palpated, and no cervical lymphadenopathy. Supple, full range of motion without nuchal rigidity, or vertebral point tenderness. No Meningismus. Chest/axilla: Normal chest wall appearance and motion. Nontender with no deformity. No lesions are appreciated. Cardiovascular: Regular rate and rhythm with a normal S1 and S2. No gallops, murmurs, or rubs. Normal PMI, no JVD. No pulse deficits. Respiratory: Lungs have equal breath sounds bilaterally, clear to auscultation and percussion. No rales, rhonchi or wheezes noted. No increased work of breathing, no retractions or nasal flaring. Abdomen/GI: Soft, non-tender, with normal bowel sounds. No distension or tympany. No guarding or rebound. No evidence of tenderness throughout. Back: No spinal tenderness. No costovertebral tenderness. Full range of motion. Skin: Warm, dry with normal turgor. Normal color with no rashes, no lesions, and no evidence of cellulitis. MS/ Extremity: Pulses equal, no cyanosis. Neurovascular intact. Full, normal range of motion. Neuro: Awake and alert, GCS 15, oriented to person, place, time, and situation. Cranial nerves II-XII grossly intact. Motor strength 5/5 in all extremities. Sensory grossly intact. Cerebellar exam normal. Normal gait. Psych: Awake, alert, with orientation to person, place and time. Behavior, mood, and affect are within normal limits. 08:39 ENT: Nose: Nasal mucosa: erythematous, bleeding. Vital Signs: 07:47 BP 174 / 107; Pulse 124; Resp 18; Pulse Ox 97% on R/A; Weight 97.52 kg; Height 5 ft. 5 iw in. (165.10 cm); 08:15 BP 160 / 88; Pulse 104; Resp 17; Pulse Ox 95% on R/A; rb3 09:15 BP 156 / 78; Pulse 97; Resp 18; Pulse Ox 97% ; rb3 07:47 Body Mass Index 35.78 (97.52 kg, 165.10 cm) iw Procedures: 08:43 Epistaxis treatment: A small amount of bleeding noted from right nare. Treated using [facility] anterior packing, Vaseline gauze, Bleeding stopped. MDM: 07:47 Patient medically screened. [facility] 08:41 Differential diagnosis: epistaxis r/t trauma, spontaneous epistaxis. Data reviewed: [facility] vital signs, nurses notes, lab test result(s), CBC, electrolytes. Data interpreted: awake overnight monitor: not applicable for this patient encounter. rate is 104 beats/min, rhythm is regular, Pulse oximetry: is not applicable for this patient encounter. Counseling: I had a detailed discussion with the patient and/or guardian regarding: the historical points, exam findings, and any diagnostic results supporting the discharge/admit diagnosis, lab results, the need for outpatient follow up, for definitive care, an ENT specialist, a family practitioner. 11/02 07:48 Order name: CBC with Diff; Complete Time: 08:49 [facility] 11/02 07:48 Order name: Comprehensive Metabolic Panel; Complete Time: 08:49 [facility] 11/02 07:48 Order name: PT-INR; Complete Time: 08:36 [facility] 11/02 07:48 Order name: IV Saline Lock; Complete Time: 08:10 [facility] Administered Medications: No medications were administered Disposition: 11/02/20 08:44 Discharged to Home. Impression: Epistaxis, Essential (primary) hypertension. - Condition is Stable. - Discharge Instructions: Hypertension, Hypertension, [id number], How to Take Your Blood Pressure, Hndo-al-Rimp, Managing Your Hypertension. - Prescriptions for Keflex 500 mg Oral Capsule - take 1 capsule by ORAL route every 6 hours for 10 days; 20 capsule. - Medication Reconciliation Form, Thank You Letter, Antibiotic Education, Prescription Opioid Use form. - Follow up: Private Physician; When: 2 - 3 days; Reason: Recheck today's complaints, Continuance of care, Re-evaluation by your physician. - Problem is new. - Symptoms have improved. Signatures: Dispatcher [employer] EDKeith Rico MD MD cha Williams, Irene, RN RN iw Barber, Rebecca, RN RN rb3 Corrections: (The following items were deleted from the chart) 09:55 08:44 11/02/2020 08:44 Discharged to Home. Impression: Epistaxis; Essential (primary) rb3 hypertension. Condition is Stable. Forms are Medication Reconciliation Form, Thank You Letter, Antibiotic Education, Prescription Opioid Use. Follow up: Private Physician; When: 2 - 3 days; Reason: Recheck today's complaints, Continuance of care, Re-evaluation by your physician. Problem is new. Symptoms have improved. epi
[2020-11-02 08:48] LABS: Albumin 3.8 g/dL (3.4-5.0); Bilirubin Total 0.6 mg/dL (0.2-1.0); Potassium 3.9 mmol/L (3.5-5.1); Protein, Total 8.1 g/dL (6.4-8.2)
[2020-11-02 10:17] VITALS: BP 160/88; O2SAT 95
== END 2020-11-02 09:55 | disposition home or self-care (01) ==
LOC: ER 07:37
PROC: 2Y41X5Z Packing of Nasal Region using Packing Material (ICD-10-PCS; principal; 2020-11-02)
DX: R04.0 Epistaxis (principal); I10 Essential (primary) hypertension; I50.9 Heart failure, unspecified; Z88.0 Allergy status to penicillin
CPT/HCPCS: 30901; 36415; 80053; 85025; 85610; 99284

== ENCOUNTER 2021-11-08 15:39 | Emergency (ER) | payer OTHER ==
[2021-11-08 17:28] LABS: Hematocrit 32.1 % (36.0-45.0); Lymphocytes % 12.2 % (15.3-44.8); MCV 96.7 fL (80-100); MPV 8.8 fL (7.6-11.3); RBC Red Blood Cell Count 3.32 M/uL (3.86-4.86)
[2021-11-08 17:50] LABS: Albumin 3.1 g/dL (3.4-5.0); Protein, Total 7.6 g/dL (6.4-8.2)
[2021-11-08 17:54] LABS: Bilirubin Total 9.6 mg/dL (0.2-1.0)
[2021-11-08] MEDS ORDERED: NA CHLORIDE 0.9% 500 ML ONE (18:13)
[2021-11-08 18:14] LABS: Urine Blood Negative (Negative); Urine Glucose Trace (Negative); Urine Protein 1+ (Negative); Urine Specific Gravity 1.015 (1.005-1.030)
[2021-11-08 18:39] LABS: Protime INR 1.46
[2021-11-08 18:45] LABS: Urine Amorphous Sediment 1+ /HPF (NONE SEEN); Urine Bacteria 20-50 /HPF (<20); Urine Mucus 1+ /HPF (NONE SEEN)
--- NOTE | 2021-11-08 19:07 | RAD REPORT ---
EXAM DESCRIPTION: CTAbdomen Pelvis W Contrast - 11/08/2021 6:51 pm CLINICAL HISTORY: Elevated liver enzymes, jaundice COMPARISON: No comparisons TECHNIQUE: CT of the abdomen and pelvis was performed. All CT scans are performed using dose optimization technique as appropriate and may include automated exposure control or mA/KV adjustment according to patient size. FINDINGS: Lower chest: Pacemaker/defibrillator. Cardiomegaly. Circumferentially thickened distal eso phagus Liver: Steatosis and mild cirrhotic liver morphology. Intrahepatic biliary duct dilatation Biliary: Distended gallbladder wall. Common bile duct is dilated. No obstructing stone or mass is moira ntified. The common bile duct measures 12 millimeters. Stomach: No significant focal abnormality. Duodenum: No significant focal abnormality. Pancreas: No significant abnormality. Spleen: Subcentimeter lesion is likely benign Adrenal: No suspicious lesions. Kidney/ureter: No hydronephrosis. No renal calculi. Retroperitoneum: Mild retroperitoneal lymphadenopathy. Vascular: No aneurysm. Bowel: Formed stool in the distal small bowel suggesting slow transit.. Peritoneum: No ascites or free air. Small fat containing right inguinal hernia. Bladder: Grossly unremarkable. Reproductive: No adnexal masses. Bones: No acute fracture. Other: n/a IMPRESSION: Distended gallbladder with cholelithiasis. The common bile duct and the intrahepatic ollie e ducts are dilated but no obstructing mass or stone is seen. Consider MRCP for further evaluation.
--- NOTE | 2021-11-08 19:33 | ER ---
Nurse's Notes [facility] Name: Carmina Salcido Age: 76 yrs Sex: Female : 1945 Arrival Date: 11/08/2021 Time: 15:41 Bed 4 Private MD: Ananth Luong E Diagnosis: Calculus of gallbladder and bile duct without cholecystitis with obstruction Presentation: 11/08 16:25 Chief complaint: Patient states: noticed yellowing to face and eyes yesterday; stated vg1 has not been feeling well for about two months and has had a loss of appetite that comes and goes. Coronavirus screen: Vaccine status: Patient reports receiving the 2nd dose of the covid vaccine. Client denies travel out of the [place] in the last 14 days. Ebola Screen: Patient denies exposure to infectious person. Patient denies travel to an Ebola-affected area in the 21 days before illness onset. Initial Sepsis Screen: Does the patient meet any 2 criteria? No. Patient's initial sepsis screen is negative. Does the patient have a suspected source of infection? No. Patient's initial sepsis screen is negative. Risk Assessment: Do you want to hurt yourself or someone else? Patient reports no desire to harm self or others. Onset of symptoms was November 07, 2021. 16:25 Method Of Arrival: Ambulatory vg1 16:25 Acuity: ALANA 3 vg1 Triage Assessment: 16:28 General: Appears uncomfortable, Behavior is cooperative. Pain: Denies pain. Neuro: vg1 Level of Consciousness is awake, alert, obeys commands, Oriented to person, place, time, situation. Derm: Skin is jaundiced. Historical: - Allergies: 16:28 PENICILLINS; vg1 - PMHx: 16:28 Atrial Fib; CHF; Hypertension; vg1 16:36 breast cancer; NO IV or BP cuff to Right arm; vg1 - Immunization history:: Client reports receiving the 2nd dose of the Covid vaccine. - Social history:: Smoking status: Patient denies any tobacco usage or history of. Screenin:21 Abuse screen: Denies threats or abuse. Nutritional screening: No deficits noted. ll1 Tuberculosis screening: No symptoms or risk factors identified. Fall Risk IV access (20 points). Total Jose Fall Scale indicates No Risk (0-24 pts). Assessment: 17:21 Reassessment: No changes from previously documented assessment. Patient and/or family ll1 updated on plan of care and expected duration. Pain level reassessed. Patient is alert, oriented x 3, equal unlabored respirations, skin warm/dry/pink. 18:15 Reassessment: No changes from previously documented assessment. Patient and/or family kr3 updated on plan of care and expected duration. Pain level reassessed. 18:50 Reassessment: No changes from previously documented assessment. Patient and/or family kr3 updated on plan of care and expected duration. Pain level reassessed. 19:33 Reassessment: Initiated transfer to [facility] for higher level of care/ no GI availability. Family prefers to try [facility] first. Spoke with Tammie, [facility] transfer center. DX Choledocholithiasis. 20:15 Reassessment: Administrative approval given by Christoph Luong, office coordinator receptionist at [facility]. Room assignmnet: [place] [id number]. 21:30 Reassessment: No changes from previously documented assessment. Patient and/or family sm5 updated on plan of care and expected duration. Pain level reassessed. 23:22 Reassessment: No changes from previously documented assessment. Patient is alert, sm5 oriented x 3, equal unlabored respirations, skin warm/dry/pink. Vital Signs: 16:25 BP 167 / 67; Pulse 101; Resp 18; Temp 99.7(TE); Pulse Ox 97% on R/A; Weight 96.16 kg; vg1 Height 5 ft. 5 in. (165.10 cm); Pain 0/10; 20:47 BP 167 / 33; Pulse 106; Resp 18; Pulse Ox 98% on R/A; sm5 23:21 BP 154 / 78; Pulse 106; Resp 17; Pulse Ox 100% on R/A; sm5 16:25 Body Mass Index 35.28 (96.16 kg, 165.10 cm) vg1 ED Course: 15:41 Patient arrived in ED. mr 15:41 Ananth Luong MD is Private Physician. mr 16:28 Triage completed. vg1 16:28 Arm band placed on. vg1 16:35 Patient placed in an exam room, on a stretcher. ll1 16:41 Curt Avalos RN is Primary Nurse. ll1 16:51 Omar Camacho NP is PHCP. pm1 16:51 Riley Gan MD is Attending Physician. pm1 17:20 Missed attempt(s): 22 gauge in left antecubital area. Bleeding controlled, band aid ll1 applied, catheter tip intact. 17:21 Patient has correct armband on for positive identification. Bed in low position. Call ll1 light in reach. Side rails up X 1. Pulse ox on. NIBP on. 18:53 CT Abd/Pelvis - IV Contrast Only In Process Unspecified. EDNC 19:46 COVID-19 SARS RT PCR (Document "Date of Onset" if Symptomatic) Sent. [facility] 19:46 COVID swab sent to lab. 5 23:22 No provider procedures requiring assistance completed. Patient transferred, IV remains [address] Administered Medications: 18:29 Drug: NS 0.9% 500 ml Route: IV; Rate: bolus; Site: left forearm; scott 20:31 Drug: Flagyl (metroNIDAZOLE) 500 mg Volume: 100 ml; Route: IVPB; Rate: 200 ml/hr; sm5 Infused Over: 30 mins; Site: left forearm; 23:22 Follow up: IV Status: Completed infusion; IV Intake: 100ml sm5 21:34 Drug: LevaQUIN (levofloxacin) 500 mg Volume: 100 ml; Route: IVPB; Infused Over: 60 sm5 mins; Site: left forearm; 23:22 Follow up: IV Status: Completed infusion; IV Intake: 100ml sm5 Medication: 17:21 VIS not applicable for this client. ll1 Intake: 23:22 IV: 100ml; Total: 100ml. sm5 23:22 IV: 100ml; Total: 200ml. 5 Outcome: 19:33 ER care complete, transfer ordered by . pm1 23:22 Transferred by ground EMS to [facility], Transfer form 5 completed. X-rays sent w/ patient. 23:22 Condition: stable 23:22 Instructed on the need for transfer. 23:23 Patient left the ED. 5 Signatures: Dispatcher [employer] JOHNATHAN Kailyn WagnerSumi, RN RN Omar Mcgregor NP [employer]IOR [employer] ENGINEER 1 Ana Le [facility] Radha Culver, RHONDA RN 1 Curt Avalos RN RN 1 Lourdes Lopez RN RN 5 Melissa Murray, RN RN scott Tegan Orellana RN RN kr3 Corrections: (The following items were deleted from the chart) 16:36 16:28 PMHx: breast cancer; NO IV or BP cuff to Left arm; vg1 vg1
--- NOTE | 2021-11-08 19:33 | EDPHYS ---
Physician Documentation [facility] Name: Carmina Salcido Age: 76 yrs Sex: Female : 1945 Arrival Date: 11/08/2021 Time: 15:41 Bed 4 Private MD: Ananth Luong E ED Physician Riley Gan HPI: 11/08 17:56 This 76 yrs old Female presents to ER via Ambulatory with complaints of Jaundice. pm1 17:56 The patient presents with Jaundice. Onset: The symptoms/episode began/occurred 3 day(s) pm1 ago. Associated signs and symptoms: Pertinent positives: nausea, Poor appetite, concentrated darkened urine, Pertinent negatives: Abdominal pain, vomiting, diarrhea, fever. Modifying factors: The symptoms are alleviated by nothing, the symptoms are aggravated by nothing. Severity of pain: in the emergency department the pain is a 0 / 10. The patient has not experienced similar symptoms in the past. The patient has not recently seen a physician. Historical: - Allergies: 16:28 PENICILLINS; vg1 - PMHx: 16:28 Atrial Fib; CHF; Hypertension; vg1 16:36 breast cancer; NO IV or BP cuff to Right arm; vg1 - Immunization history:: Client reports receiving the 2nd dose of the Covid vaccine. - Social history:: Smoking status: Patient denies any tobacco usage or history of. ROS: 17:56 Cardiovascular: Negative for chest pain, palpitations, and edema. pm1 17:56 Respiratory: Negative for shortness of breath, cough, wheezing, and pleuritic chest pain. 17:56 Back: Negative for injury and pain, MS/Extremity: Negative for injury and deformity, Skin: Negative for injury, rash, and discoloration, Neuro: Negative for headache, weakness, numbness, tingling, and seizure. 17:56 Constitutional: Positive for poor PO intake, Negative for fever. 17:56 Abdomen/GI: Positive for nausea, Negative for abdominal pain, vomiting, diarrhea, constipation. 17:56 : Positive for concentrated urine, Negative for burning with urination. 17:56 All other systems are negative. Exam: 17:56 Constitutional: This is a well developed, well nourished patient who is awake, alert, pm1 and in no acute distress. Head/Face: Normocephalic, atraumatic. 17:56 MS/ Extremity: Pulses equal, no cyanosis. Neurovascular intact. Full, normal range of motion. 17:56 Cardiovascular: Exam negative for acute changes, Rate: normal, Rhythm: regular, Pulses: no pulse deficits are appreciated. 17:56 Respiratory: Exam negative for acute changes, respiratory distress, shortness of breath, Breath sounds: are clear throughout. 17:56 Abdomen/GI: Exam negative for acute changes, Inspection: abdomen appears normal, Palpation: abdomen is soft and non-tender, in all quadrants. 17:56 Skin: Appearance: Color: jaundiced. 17:56 Neuro: Exam negative for acute changes, Orientation: is normal, Mentation: is normal, Motor: moves all fours. Vital Signs: 16:25 BP 167 / 67; Pulse 101; Resp 18; Temp 99.7(TE); Pulse Ox 97% on R/A; Weight 96.16 kg; vg1 Height 5 ft. 5 in. (165.10 cm); Pain 0/10; 20:47 BP 167 / 33; Pulse 106; Resp 18; Pulse Ox 98% on R/A; sm5 23:21 BP 154 / 78; Pulse 106; Resp 17; Pulse Ox 100% on R/A; sm5 16:25 Body Mass Index 35.28 (96.16 kg, 165.10 cm) vg1 MDM: 16:51 Patient medically screened. pm1 18:31 ED course: Per lab hepatitis panel only for admitted patients. pm1 19:31 Data reviewed: vital signs. Data interpreted: Pulse oximetry: on room air is 97 %. pm1 Interpretation: normal. 19:31 Counseling: I had a detailed discussion with the patient and/or guardian regarding: the pm1 historical points, exam findings, and any diagnostic results supporting the discharge/admit diagnosis, lab results, radiology results, the need to transfer to another facility, [facility] does not immediately have the required specialist, No GI oncall. Patient with diagnosis of choledocholithiasis. 19:33 ED course: Patient requested to go to [facility] system if possible. pm1 02 17:01 Order name: CBC with Diff; Complete Time: 17:53 pm1 11/08 17:01 Order name: CMP; Complete Time: 17:56 pm1 11/08 17:01 Order name: Lipase; Complete Time: 17:56 pm1 07/02 17:01 Order name: Urine Microscopic Only; Complete Time: 19:01 pm1 11/08 17:56 Order name: PT-INR; Complete Time: 19:01 pm1 11/08 17:56 Order name: Ptt, Activated; Complete Time: 19:01 pm1 11/08 17:55 Order name: CT Abd/Pelvis - IV Contrast Only; Complete Time: 19:08 pm1 11/08 18:15 Order name: Urine Dipstick-Ancillary; Complete Time: 18:33 EDMS 11/08 18:30 Order name: Hepatitis Panel pm1 11/08 18:48 Order name: Urine Culture EDMS 11/08 19:37 Order name: COVID-19 SARS RT PCR (Document "Date of Onset" if Symptomatic); Complete pm1 Time: 13:33 11/08 17:01 Order name: IV Saline Lock; Complete Time: 17:03 pm1 11/08 17:01 Order name: Labs collected and sent; Complete Time: 17:03 pm1 11/08 17:01 Order name: Urine Dipstick-Ancillary (obtain specimen); Complete Time: 18:29 pm1 Administered Medications: 18:29 Drug: NS 0.9% 500 ml Route: IV; Rate: bolus; Site: left forearm; 20:31 Drug: Flagyl (metroNIDAZOLE) 500 mg Volume: 100 ml; Route: IVPB; Rate: 200 ml/hr; sm5 Infused Over: 30 mins; Site: left forearm; 23:22 Follow up: IV Status: Completed infusion; IV Intake: 100ml sm5 21:34 Drug: LevaQUIN (levofloxacin) 500 mg Volume: 100 ml; Route: IVPB; Infused Over: 60 sm5 mins; Site: left forearm; 23:22 Follow up: IV Status: Completed infusion; IV Intake: 100ml sm5 Disposition: 11/09 07:05 Co-signature as Attending Physician, Riley Gan MD I agree with the assessment and kdr plan of care. Disposition Summary: 11/08/21 19:33 Transfer Ordered Transfer Location: [facility] pm1 Reason: Higher level of care pm1 Condition: Stable pm1 Problem: new pm1 Symptoms: have improved pm1 Accepting Physician: (11/08/21 23:23) sm5 Diagnosis - Calculus of gallbladder and bile duct without cholecystitis with obstruction pm1 Forms: - Medication Reconciliation Form pm1 - SBAR form pm1 Signatures: Dispatcher [employer] EDRiley De La Garza MD MD kdr Marinas, Patrick, MEDICAL PHYSICS TEACHER MEDICAL PHYSICS TEACHER pm1 Radha Culver RN RN vg1 Lourdes Lopez RN RN sm5 Melissa Murray RN RN scott Corrections: (The following items were deleted from the chart) 11/08 16:36 16:28 PMHx: breast cancer; NO IV or BP cuff to Left arm; vg1 vg1 23:23 19:33 pm1 sm5
[2021-11-08] MEDS ORDERED: METRONIDAZOLE 500mg IVPB 500 MG/100 ML BAG IV ONE (20:18)
[2021-11-08] MEDS ORDERED: Levofloxacin500mg IV 500 MG/100 ML BAG IV ONE (21:17)
[2021-11-08 23:58] VITALS: TEMP 99.7
[2021-11-09 00:20] VITALS: BP 154/78; O2SAT 100
[2021-11-12 19:18] LABS: HBsAG Nonreactive (Nonreactive)
== END 2021-11-08 23:23 | disposition short-term general hospital (02) ==
LOC: ER 15:39
DX: K80.70 Calculus of gallbladder and bile duct without cholecystitis without obstruction (principal); R17 Unspecified jaundice; Z20.822 Contact with and (suspected) exposure to COVID-19; I10 Essential (primary) hypertension; Z88.0 Allergy status to penicillin; Z85.3 Personal history of malignant neoplasm of breast
CPT/HCPCS: 96365; 87088; 85025; 87086; 36415; 85610; 85730; 83690; 80053; 80074; 74177; 99285; 96366; U0003; Q9967; J7040; J3490; 81003; 81015; 87077; 87186

== ENCOUNTER 2021-12-10 12:10 | Emergency (ER) | payer OTHER ==
--- OUTSIDE RECORDS SUMMARY | 2021-12-10 12:13 | XMS REPORT | Continuity of Care Document ---
:1945 Author Organization [facility] t Address [address] [place] [address] Care Team Providers Name Role Phone [phone] Primary Care Physician Unavailable RICHARD OLIVAREZ Attending Clinician Unavailable UNIQUE FARNSWORTH Attending Clinician Unavailable PATY COOPER Attending Clinician Unavailable Doctor Unassigned, [place] Attending Clinician Unavailable Sindhu Benjamin RN Attending Clinician Unavailable VALENCIA VILLARREAL Attending Clinician Unavailable Yoselyn ALDANA, Carloz Attending Clinician BIANKA SOUSA Attending Clinician Unavailable CELESTE MARRERO Attending Clinician Unavailable MD BIANKA SOUSA Attending Clinician Unavailable VALENCIA VILLARREAL Admitting Clinician Unavailable BIANKA SOUSA Admitting Clinician Unavailable MD BIANKA SOUSA Admitting Clinician Unavailable Payers Payer Name Policy Type Policy Number Effective Date Expiration Date S justo [employer] MEDICARE PPO [id number] 2021 00:00:00 Problems Condition Condition Condition Status Onset Resolution Last Treating Co mments Source Name Details Category Date Date Treatment Clinician Date Jaundice Jaundice Disease Active Unive rs 7-03 ity of 00:00: [address] Essential Essential Disease Active Uni vers hypertensi hypertensi 09-15 it y of on on 00:00: [address] Atrial Atrial Disease Active Univers fibrillati fibrillati 09-15 it y of on on 00:00: [address] Chronic Chronic Disease Active 2019-0 Univers anticoagul anticoagul 5-09 it y of ation ation 00:00: [place] 00 [facility] Postoperat Postoperat Disease Active 2019-0 U nivers yue pain yue pain -08 ity of 00:00: [place] 00 [facility] Allergies, Adverse Reactions, Alerts Allergy Allergy Status Severity Reaction(s) Onset Inactive Treating Comm ents Source Name Type Date Date Clinician AMLODIPI DRUG Active Low Hives 2021-0 MD NE INGREDI 8- Anderso BESYLATE 00:00: n 00 AMLODIPI DRUG Active Low Hives 2021-0 MD NE INGREDI 8- Anderso BESYLATE 00:00: n 00 AMLODIPI DRUG Active Low Hives 2021-0 MD NE INGREDI 8- Anderso BESYLATE 00:00: n 00 AMLODIPI DRUG Active Low Hives 2021-0 MD NE INGREDI 8- Anderso BESYLATE 00:00: n 00 AMLODIPI DRUG Active Low Hives 2021-0 MD NE INGREDI 8- Anderso BESYLATE 00:00: n 00 PENICILL Drug Active Low Rash 2019-0 MD INS Class 5-06 Anderso 00:00: n 00 PENICILL Drug Active Low Rash 2019-0 MD INS Class 5-06 Anderso 00:00: n 00 PENICILL Drug Active Low Rash 2019-0 MD INS Class 5-06 Anderso 00:00: n 00 PENICILL Drug Active Low Rash 2019-0 MD INS Class 5-06 Anderso 00:00: n 00 PENICILL Drug Active Low Rash 2019-0 MD INS Class 5-06 Anderso 00:00: n 00 PENICILL Drug Active Low Rash 2019-0 Univers INS Class 5-06 ity of 00:00: [place] 00 [facility] Penicill Propensi Active Rash 2019-0 In the Univer s ins ty to 5-06 60s ity of adverse 00:00: [place] reaction 00 Medical s Branch Social History Social Habit Start Date Stop Date Quantity Comments Source Alcohol intake 2021-11-12 2021-11-12 Current University of 00:00:00 00:00:00 non-drinker of [facility] alcohol (finding) Branch Exposure to 2021-10-30 2021-11-09 Not sure University SARS-CoV-2 00:00:00 15:36:00 [place] Medical (event) Branch Tobacco use and 2018-09-12 2018-09-12 Smokeless tobacco Un iversity of exposure 00:00:00 00:00:00 non-user [facility] Sex Ass[birth year] Universit y of 00:00:00 00:00:00 [facility] Smoking Status Start Date Stop Date Source Never smoked tobacco [facility] Medications Ordered Filled Start Stop Current Ordering Indication Dosage Frequency Signature Comments Components Source Medication Medication Date Date Medication? Clinician (SIG) Name Name amLODIPine Yes [id number] 10mg Take 1 U nivers 10 mg 7-08 tablet by ity of tablet 00:00: mouth [place] 00 daily. Medical Branch pantoprazol Yes [id number] 40mg Take 1 Univers e 40 mg EC 7-08 tablet by ity of tablet 00:00: mouth [place] 00 daily. Medical Branch triamcinolo Yes Apply to Un gallito ne 7-08 affected ity of acetonide 00:00: area(s) [place] 0.1 % cream 00 daily. Medica l Branch amLODIPine Yes [id number] 10mg Take 1 U nivers 10 mg 7-08 tablet by ity of tablet 00:00: mouth [place] 00 daily. Medical Branch pantoprazol Yes [id number] 40mg Take 1 Univers e 40 mg EC 7-08 tablet by ity of tablet 00:00: mouth [place] 00 daily. Medical Branch triamcinolo Yes Apply to Un gallito ne 7-08 affected ity of acetonide 00:00: area(s) [place] 0.1 % cream 00 daily. Medica l Branch amLODIPine Yes [id number] 10mg Take 1 U nivers 10 mg 7-08 tablet by ity of tablet 00:00: mouth [place] 00 daily. Medical Branch pantoprazol Yes [id number] 40mg Take 1 Univers e 40 mg EC 7-08 tablet by ity of tablet 00:00: mouth [place] 00 daily. Medical Branch triamcinolo Yes Apply to Un gallito ne 7-08 affected ity of acetonide 00:00: area(s) [place] 0.1 % cream 00 daily. Medica l Branch amLODIPine Yes [id number] 10mg Take 1 U nivers 10 mg 7-08 tablet by ity of tablet 00:00: mouth [place] 00 daily. Medical Branch pantoprazol Yes [id number] 40mg Take 1 Univers e 40 mg EC 7-08 tablet by ity of tablet 00:00: mouth [place] 00 daily. Medical Branch triamcinolo Yes Apply to Un gallito ne 7-08 affected ity of acetonide 00:00: area(s) [place] 0.1 % cream 00 daily. Medica l Branch glipiZIDE Yes 5mg Take 5 mg Uni vers XL 5 mg 24 7-07 by mouth ity o f hr tablet 17:26: [place] 03 breakfast. Medical Branch potassium Yes 10meq Take 10 Univ ers chloride 10 7-07 mEq by ity of mEq CR 17:26: mouth 2 [place] tablet 03 (two) Medical times Branch daily. Potassium Cloride ER 10meq, take 2 tabs daily torsemide 2021-0 Yes 20mg Take 20 mg Un gallito 20 mg 7-07 by mouth ity of tablet 17:26: daily. [place] [facility] loratadine 0 Yes 5mg Take 5 mg Un gallito (CLARITIN 7-07 by mouth. ity o f ORAL) 17:26: [place] [address] Medical Branch glipiZIDE 0 Yes 5mg Take 5 mg Uni vers XL 5 mg 24 7-07 by mouth ity o f hr tablet 17:26: [place] 03 breakfast. Medical [facility] potassium Yes 10meq Take 10 Univ ers chloride 10 7-07 mEq by ity of mEq CR 17:26: mouth 2 [place] tablet 03 (two) Medical times Branch daily. Potassium Cloride ER 10meq, take 2 tabs daily torsemide 2021-0 Yes 20mg Take 20 mg Un [place] 20 mg 7-07 by mouth ity of tablet 17:26: daily. [place] [address] Medical Branch loratadine 2021-0 Yes 5mg Take 5 mg Un gall[place] (CLARITIN 7-07 by mouth. ity o f ORAL) 17:26: [place] [address] Medical Branch glipiZIDE 2021-0 Yes 5mg Take 5 mg Uni vers XL 5 mg 24 7-07 by mouth ity o f hr tablet 17:26: [place] 03 breakfast. Medical Branch potassium 2022-0 Yes 10meq Take 10 Univ ers chloride 10 7-07 mEq by ity of mEq CR 17:26: mouth 2 [place] tablet 03 (two) Medical times Branch daily. Potassium Cloride ER 10meq, take 2 tabs daily torsemide 2022-0 Yes 20mg Take 20 mg Un [place] 20 mg 7-07 by mouth ity of tablet 17:26: daily. [address] Branch loratadine 2-0 Yes 5mg Take 5 mg Un gallito (CLARITIN 7-07 by mouth. ity o f ORAL) 17:26: [address] Branch glipiZIDE 2-0 Yes 5mg Take 5 mg Uni vers XL 5 mg 24 7-07 by mouth ity o f hr tablet 17:26: daily [place] 03 breakfast. Medical Branch potassium 2-0 Yes 10meq Take 10 Univ ers chloride 10 7-07 mEq by ity of mEq CR 17:26: mouth 2 [place] tablet 03 (two) Medical times Branch daily. Potassium Cloride ER 10meq, take 2 tabs daily torsemide 2-0 Yes 20mg Take 20 mg Un [place] 20 mg 7-07 by mouth ity of tablet 17:26: daily. [address] Branch loratadine 2-0 Yes 5mg Take 5 mg Un [place] (CLARITIN 7-07 by mouth. ity o f ORAL) 17:26: [address] Branch apixaban 5 2-0 Yes 5mg Take 1 Unive rs mg tablet 7-07 tablet by ity o f 00:00: mouth 2 [place] (two) Medical times Branch daily. metoprolol 2022-0 Yes 50mg Take 1 Unive rs succinate 7-07 tablet by ity o f XL 50 mg 24 00:00: mouth 2 [place] as hr tablet 00 (two) Medical times Branch daily. apixaban 5 2022-0 Yes 5mg Take 1 Unive rs mg tablet 7-07 tablet by ity o f 00:00: mouth 2 [place] 00 (two) Medical times Branch daily. metoprolol 2022-0 Yes 50mg Take 1 Unive rs succinate 7-07 tablet by ity o f XL 50 mg 24 00:00: mouth 2 [place] as hr tablet 00 (two) Medical times Branch daily. apixaban 5 2022-0 Yes 5mg Take 1 Unive rs mg tablet 7-07 tablet by ity o f 00:00: mouth 2 [place] 00 (two) Medical times Branch daily. metoprolol 2021-0 Yes 50mg Take 1 Unive rs succinate 7-07 tablet by ity o f XL 50 mg 24 00:00: mouth 2 [place] hr tablet 00 (two) Medical times Branch daily. apixaban 5 2021-0 Yes 5mg Take 1 Unive rs mg tablet 7-07 tablet by ity o f 00:00: mouth 2 [place] 00 (two) Medical times Branch daily. metoprolol 2021-0 Yes 50mg Take 1 Unive rs succinate 7-07 tablet by ity o f XL 50 mg 24 00:00: mouth 2 [place] hr tablet 00 (two) Medical times Branch daily. Procedures Procedure Date / Time Performing Clinician Source Performed EXTERNAL PROVIDER 2021-11-27 05:01:00 Doctor Shyannessigned, No [facility] RECORDS Name Medical Branch AUTHORIZATION FOR 2021-11-20 05:01:00 Doctor Unassigned, No [facility] RELEASE OF PHI Name Medical Branch Encounters Start End Encounter Admission Attending Care Care Encounter Source Date/Time Date/Time Type Type Clinicians Facility Department ID 2021-12-10 2021-12-10 Outpatient EL ROSELINE MDA MDA [id number] 10:00:10 10:00:10 Ham GRAY 2021-12-08 2021-12-08 Outpatient VICTOR M FARNSWORTH, MDA MDA [id number] 18:07:49 18:07:49 UNIQUE johnson 2021-12-08 2021-12-08 Outpatient VICTOR M FARNSWORTH, MDA MDA [id number] 16:45:00 16:45:00 UNIQUE johnson 2021-12-08 2021-12-08 Outpatient EL ROSELINE MDA MDA [id number] 14:12:24 16:35:30 Ham GRAY 2021-12-08 2021-12-08 Outpatient VICTOR M COOPER, VIK MDA [id number] 14:10:28 14:12:48 PATY johnson 2021-11-27 2021-11-27 Juan BERG [id number] Univers 00:00:00 00:00:00 Only Unassigned, CARLA [id number] ity of [place] [facility] [id number] [place] as [phone] [facility] 009 Branch 2021-11-20 2021-11-20 Orders Doctor OTIS [id number] Univers 00:00:00 00:00:00 Only Unassigned, CARLA [id number] ity of [place] [facility] [id number] Yovanny as [phone] [facility] 009 Branch 2021-11-14 2021-11-14 Transition DAVI Benjamin [id number] Univers 00:00:00 00:00:00 of Care Sindhu [place]TAÑ[place] [id number] [id number] [phone] [facility] 403 Branch 2021-11-09 2021-11-13 [facility] [id number] Univers 00:58:00 15:43:00 VALENCIA ity of [facility] 2021-11-12 2021-11-12 Multidisci Parupudi, UNIVERSIT [id number] Univers 00:00:00 00:00:00 plinary Carloz Y HEALTH [id number] i ty of [facility] [id number] [place] [phone] [facility] 071 Branch 2020-06-26 2020-06-29 Inpatient MERRY, [facility] [id number] 37 [place] 00:00:00 00:00:00 BIANKA [address] 2020-06-28 2020-06-28 Outpatient MARRERO, [facility] [id number] [address] [place] 00:00:00 00:00:00 CELESTE [address] 2020-06-27 2020-06-27 Outpatient MARRERO, [facility] [id number] [address] [place] 00:00:00 00:00:00 CELESTE [address] Results Test Description Test Time Test Comments Results Result Comments Source SARS-CoV-2 (COVID-19) RNA [Presence] in Respiratory sp ecimen by 2020-06-26 21:47:04 LAUREANO with probe detection Test Item Value Reference Range Interpretation Comme nts SARS-CoV-2 (COVID-19) RNA [Presence] in Respiratory Not detected No t-Detected specimen by LAUREANO with probe detection (test code = 29960-2)
--- NOTE | 2021-12-10 13:57 | EDPHYS ---
Physician Documentation [facility] Name: Carmina Salcido Age: 76 yrs Sex: Female : 1945 Arrival Date: 12/10/2021 Time: 12:12 Bed 18 Private MD: Ananth Luong E ED Physician Keith Gonzalez HPI: 12/10 13:45 This 76 yrs old Female presents to ER via Ambulatory with complaints of Wound epi Check. 13:45 Patient presents to ED for recheck of: cellulitis. The affected area is on the right epi calf. 13:45 Progress: The patient reports decreased drainage, pain, redness, swelling. The patient epi has experienced similar episodes in the past, several times. 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 - Social history:: Smoking status: Patient denies any tobacco usage or history of. ROS: 13:47 Constitutional: Negative for fever, chills, and weight loss, Eyes: Negative for injury, epi pain, redness, and discharge, ENT: Negative for injury, pain, and discharge, Neck: Negative for injury, pain, and swelling, Cardiovascular: Negative for chest pain, palpitations, and edema, Respiratory: Negative for shortness of breath, cough, wheezing, and pleuritic chest pain, Abdomen/GI: Negative for abdominal pain, nausea, vomiting, diarrhea, and constipation, Back: Negative for injury and pain, : Negative for injury, bleeding, discharge, and swelling, Neuro: Negative for headache, weakness, numbness, tingling, and seizure, Psych: Negative for depression, anxiety, suicide ideation, homicidal ideation, and hallucinations, Allergy/Immunology: Negative for hives, rash, and allergies, Endocrine: Negative for neck swelling, polydipsia, polyuria, polyphagia, and marked weight changes. 13:47 MS/extremity: Positive for decreased range of motion, erythema, pain, swelling, tenderness, of the right calf. Exam: 13:47 Constitutional: This is a well developed, well nourished patient who is awake, alert, epi and in no acute distress. Head/Face: Normocephalic, atraumatic. Eyes: Pupils equal round and reactive to light, extra-ocular motions intact. Lids and lashes normal. Conjunctiva and sclera are non-icteric and not injected. Cornea within normal limits. Periorbital areas with no swelling, redness, or edema. ENT: Nares patent. No nasal discharge, no septal abnormalities noted. Tympanic membranes are normal and external auditory canals are clear. Oropharynx with no redness, swelling, or masses, exudates, or evidence of obstruction, uvula midline. Mucous membranes moist. Neck: Trachea midline, no thyromegaly or masses palpated, and no cervical lymphadenopathy. Supple, full range of motion without nuchal rigidity, or vertebral point tenderness. No Meningismus. Chest/axilla: Normal chest wall appearance and motion. Nontender with no deformity. No lesions are appreciated. Cardiovascular: Regular rate and rhythm with a normal S1 and S2. No gallops, murmurs, or rubs. Normal PMI, no JVD. No pulse deficits. Respiratory: Lungs have equal breath sounds bilaterally, clear to auscultation and percussion. No rales, rhonchi or wheezes noted. No increased work of breathing, no retractions or nasal flaring. Abdomen/GI: Soft, non-tender, with normal bowel sounds. No distension or tympany. No guarding or rebound. No evidence of tenderness throughout. Back: No spinal tenderness. No costovertebral tenderness. Full range of motion. Skin: Warm, dry with normal turgor. Normal color with no rashes, no lesions, and no evidence of cellulitis. Neuro: Awake and alert, GCS 15, oriented to person, place, time, and situation. Cranial nerves II-XII grossly intact. Motor strength 5/5 in all extremities. Sensory grossly intact. Cerebellar exam normal. Normal gait. Psych: Awake, alert, with orientation to person, place and time. Behavior, mood, and affect are within normal limits. 13:47 Musculoskeletal/extremity: ROM: full active range of motion, full passive range of motion, Circulation is intact in all extremities. Sensation intact. Compartment Syndrome exam of affected extremity: is normal. Weight bearing: able to fully bear weight, without difficulty, DVT Exam: negative Homans' sign noted on exam, no appreciated bluish discoloration, pain, swelling, tenderness, erythema, increased warmth. 13:47 Skin: cellulitis, that is moderate, induration, that is moderate is noted. 14:16 ECG was reviewed by the Attending Physician. [facility] Vital Signs: 12:32 BP 170 / 79; Pulse 93; Resp 17; Temp 97.8(TE); Pulse Ox 99% on R/A; Weight 98.88 kg tw2 (R); Height 5 ft. 5 in. (165.10 cm); Pain 0/10; 12:51 BP 133 / 64; Pulse 72; Resp 16; Pulse Ox 100% on R/A; Pain 0/10; eh3 16:00 BP 160 / 67; Pulse 77; Resp 16; Pulse Ox 99% on R/A; Pain 0/10; eh3 17:00 BP 164 / 76; Pulse 74; Resp 16; Pulse Ox 99% on R/A; Pain 0/10; eh3 12:32 Body Mass Index 36.28 (98.88 kg, 165.10 cm) tw2 MDM: 12:47 Patient medically screened. [facility] 13:49 Differential diagnosis: cellulitis, contusion, abrasion. Data reviewed: vital signs, [facility] nurses notes, lab test result(s), EKG, radiologic studies, plain films. 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 Test interpretation: by ED physician or midlevel provider: ECG, plain radiologic studies. Counseling: I had a detailed discussion with the patient and/or guardian regarding: the historical points, exam findings, and any diagnostic results supporting the discharge/admit diagnosis, lab results, radiology results, the need for further work-up and treatment in the hospital. 16:39 ED course: PT WAS ADMITTED, DW DR SALAZAR , WANTS TO GO HOME, AND TRY OUTPATIENT. [facility] 12/10 13:45 Order name: Basic Metabolic Panel; Complete Time: 16:10 [facility] 12/10 13:45 Order name: CBC with Diff; Complete Time: 16:10 [facility] 12/10 13:45 Order name: LFT's; Complete Time: 16:10 [facility] 12/10 13:45 Order name: Magnesium; Complete Time: 16:10 [facility] 12/10 13:45 Order name: NT PRO-BNP; Complete Time: 16:10 [facility] 12/10 13:45 Order name: PT-INR; Complete Time: 16:10 [facility] 12/10 13:45 Order name: Troponin HS; Complete Time: 16:10 [facility] 12/10 13:45 Order name: XRAY Chest (1 view); Complete Time: 15:10 [facility] 12/10 13:45 Order name: Blood Culture Adult (2) 12/10 13:45 Order name: Lactate; Complete Time: 16:10 [facility] 12/10 13:45 Order name: US Extremity Venous W Compression Daniel; Complete Time: 15:10 [facility] 12/10 13:45 Order name: SARS RAPID; Complete Time: 15:10 [facility] 12/10 13:45 Order name: Procalcitonin; Complete Time: 16:22 [facility] 12/10 13:45 Order name: EKG; Complete Time: 13:46 [facility] 12/10 13:45 Order name: Cardiac monitoring; Complete Time: 16:03 [facility] 12/10 13:45 Order name: EKG - Nurse/Tech; Complete Time: 14:17 [facility] 12/10 13:45 Order name: IV Saline Lock; Complete Time: 15:25 [facility] 12/10 13:45 Order name: Labs collected and sent; Complete Time: 15:25 [facility] 12/10 13:45 Order name: O2 Per Protocol; Complete Time: 14:03 [facility] 12/10 13:45 Order name: O2 Sat Monitoring; Complete Time: 14:03 [facility] 12/10 13:45 Order name: Wound dressing; Complete Time: 17:45 [facility] 12/10 15:28 Order name: Labs - recollect needed: collect red tube for blood culture; Complete Time: bd 16:15 12/10 15:31 Order name: Labs - recollect needed: collect blood culture and red top tube; Complete bd Time: 16:15 EC:16 Rate is 727 beats/min. Rhythm is irregularly irregular. QRS [place] is Normal. QRS epi interval is normal. QT interval is normal. No Q waves. T waves are Normal. No ST changes noted. Clinical impression: Atrial Fibrillation and No evidence of ischemia. Interpreted by me. Reviewed by me. Administered Medications: 17:45 Discontinued: NS 0.9% 1000 ml IV at 125 ml/hr continuous eh3 15:50 Drug: vancoMYCIN 1 grams Route: IVPB; Infused Over: 2 hrs; Site: left antecubital; 3 17:40 Follow up: Response: No adverse reaction; IV Status: Completed infusion; IV Intake: eh3 250ml 15:50 Drug: Meropenem 1 grams Route: IV; Rate: per protocol; Site: left antecubital; 3 16:30 Follow up: Response: No adverse reaction; IV Status: Completed infusion; IV Intake: eh3 100ml 15:50 Drug: NS 0.9% 1000 ml Route: IV; Rate: 125 ml/hr; Site: left antecubital; 3 17:45 Follow up: Response: No adverse reaction; IV Intake: 500ml 3 17:23 Drug: Doxycycline 200 mg Route: PO; 3 17:51 Follow up: Response: No adverse reaction 3 17:23 Drug: KeFLEX (cephalexin) 500 mg Route: PO; 3 17:51 Follow up: Response: No adverse reaction 3 17:27 Drug: Silvadene (silver sulfADIAZINE) Cream 1 % 1 application Route: Topical; Site: 3 affected area; 17:51 Follow up: Response: No adverse reaction eh3 Disposition Summary: 12/10/21 16:37 Discharge Ordered Location: Home(12/10/21 16:37) epi Problem: new(12/10/21 16:37) epi Symptoms: have improved(12/10/21 16:37) epi Condition: Fair(12/10/21 16:37) epi Diagnosis - Cellulitis of left lower limb epi - Venous insufficiency (chronic) (peripheral)(12/10/21 16:37) epi - Anemia, unspecified epi - Obesity, unspecified epi - Type 2 diabetes mellitus with hyperglycemia epi - Chronic atrial fibrillation(12/10/21 16:39) epi Followup: epi - With: Ananth Luong MD - When: 2 - 3 days - Reason: Recheck today's complaints, Continuance of care, Re-evaluation by your physician Followup: epi - With: Mitch Camp MD - When: 2 - 3 days - Reason: Recheck today's complaints, Re-evaluation by your physician Discharge Instructions: - Discharge Summary Sheet epi - Cellulitis, Adult epi - Venous Ulcer epi - Cellulitis, Adult, [id number] epi - Chronic Venous Insufficiency epi - Venous Ulcer, [id number] epi Forms: - Medication Reconciliation Form epi - Thank You Letter epi - Antibiotic Education epi - Prescription Opioid Use epi Prescriptions: - Cephalexin 500 mg Oral Capsule - take 1 capsule by ORAL route every 6 hours for 10 days; 40 capsule; Refills: 0, epi Product Selection Permitted - Doxycycline Hyclate 100 mg Oral Tablet - take 1 tablet by ORAL route every 12 hours; 20 tablet; Refills: 0, Product epi Selection Permitted - Silvadene 1 % Topical Cream - Apply to affected area 1 application by TOPICAL route every 12 hours; 50 gram; epi Refills: 0, Product Selection Permitted Signatures: Dispatcher [employer] EDMS Alicia Zabala Corey, MD MD cha Wise, Tara RN RN tw2 Cohn, Denita 3 Corrections: (The following items were deleted from the chart) 16:36 13:56 Inpatient Admission epi epi 16:36 13:56 Issac Salazar epi epi 16:36 13:56 Telemetry/MedSurg (Inpatient) epi epi 16:36 13:56 Stable epi epi 16:36 13:56 new epi epi 16:36 13:56 have improved epi epi 16:36 13:56 Standard epi epi 16:36 13:56 epi epi 16:36 13:56 Cellulitis of right lower limb epi pei 16:36 13:56 Edema, unspecified epi epi 16:36 13:56 Venous insufficiency (chronic) (peripheral) epi epi 16:36 14:15 Chronic atrial fibrillation epi epi
--- NOTE | 2021-12-10 13:57 | ER ---
Nurse's Notes [facility] Name: Carmina Salcido Age: 76 yrs Sex: Female : 1945 Arrival Date: 12/10/2021 Time: 12:12 Bed 18 Private MD: Ananth Luong E Diagnosis: Cellulitis of left lower limb;Venous insufficiency (chronic) (peripheral);Anemia, unspecified;Obesity, unspecified;Type 2 diabetes mellitus with hyperglycemia;Chronic atrial fibrillation Presentation: 12/10 12:29 Chief complaint: Patient states: i have an open wound on the back of my RIGHT leg. it tw2 has been about 2 weeks. i have been trying to get someone to see it and couldn't get in. 12:31 Coronavirus screen: At this time, the client does not indicate any symptoms associated tw2 with coronavirus-19. Ebola Screen: Patient denies travel to an Ebola-affected area in the 21 days before illness onset. Onset of symptoms was December 10, 2021. 12:31 Method Of Arrival: Ambulatory tw2 12:31 Acuity: ALANA 3 tw2 12:34 Initial Sepsis Screen: Does the patient meet any 2 criteria? No. Patient's initial tw2 sepsis screen is negative. Does the patient have a suspected source of infection? No. Patient's initial sepsis screen is negative. Risk Assessment: Do you want to hurt yourself or someone else? Patient reports no desire to harm self or others. Triage Assessment: 12:33 General: Appears in no apparent distress. obese, well groomed, Behavior is calm, tw2 cooperative, appropriate for age. Pain: Denies pain. Derm: appears to be cellulitis with redness and weeping noted on right calf posterior. 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 - Social history:: Smoking status: Patient denies any tobacco usage or history of. Screenin:48 Abuse screen: Denies threats or abuse. Denies injuries from another. Nutritional eh3 screening: No deficits noted. Tuberculosis screening: No symptoms or risk factors identified. Fall Risk Secondary diagnosis (15 points) Gait- Impaired (20 pts.). Total Jose Fall Scale indicates Low Risk Score (25-44 pts). Fall prevention measures have been instituted. Side Rails Up X 2 Placed close to Nursing Station Family Present and informed to notify staff if they need to leave bedside As available Patient and Family Educated on Fall Prevention Program and strategies. Assessment: 12:46 Reassessment: No changes from previously documented assessment. Changed BP cuff for eh3 more accurate reading. Provided pillow and dimmed lights for comfort. General: Appears in no apparent distress. comfortable, Behavior is calm, cooperative, appropriate for age. 12:48 Pain: Denies pain. Neuro: Level of Consciousness is awake, alert, obeys commands, eh3 Oriented to person, place, time, situation. Cardiovascular: Capillary refill < 3 seconds Patient's skin is warm and dry. Respiratory: Airway is patent Respiratory effort is even, unlabored. Vital Signs: 12:32 BP 170 / 79; Pulse 93; Resp 17; Temp 97.8(TE); Pulse Ox 99% on R/A; Weight 98.88 kg tw2 (R); Height 5 ft. 5 in. (165.10 cm); Pain 0/10; 12:51 BP 133 / 64; Pulse 72; Resp 16; Pulse Ox 100% on R/A; Pain 0/10; eh3 16:00 BP 160 / 67; Pulse 77; Resp 16; Pulse Ox 99% on R/A; Pain 0/10; eh3 17:00 BP 164 / 76; Pulse 74; Resp 16; Pulse Ox 99% on R/A; Pain 0/10; eh3 12:32 Body Mass Index 36.28 (98.88 kg, 165.10 cm) tw2 ED Course: 12:12 Patient arrived in ED. mr 12:13 Ananth Loung MD is Private Physician. mr 12:29 Arm band placed on. tw2 12:31 Triage completed. tw2 12:47 Keith Gonzalez MD is Attending Physician. [facility] 12:48 Patient has correct armband on for positive identification. Bed in low position. Call eh3 light in reach. Side rails up X2. Client placed on continuous cardiac and pulse oximetry monitoring. NIBP monitoring applied. Door closed. Noise minimized. Lights dimmed. Warm blanket given. Pillow given. 12:52 Denita Cohn is Primary Nurse. eh3 13:53 Issac Salazar MD is Hospitalizing Provider. epi 14:15 XRAY Chest (1 view) In Process Unspecified. EDMS 14:16 SARS RAPID Sent. zm 14:41 US Extremity Venous W Compression Daniel In Process Unspecified. EDMS 15:15 Inserted saline lock: 20 gauge in left antecubital area, using aseptic technique. Blood eh3 collected. 10cm midline. 15:25 Basic Metabolic Panel Sent. eh3 15:25 CBC with Diff Sent. eh3 15:25 LFT's Sent. eh3 15:25 Magnesium Sent. eh3 15:25 NT PRO-BNP Sent. eh3 15:25 PT-INR Sent. eh3 15:25 Troponin HS Sent. eh3 15:26 Procalcitonin Sent. eh3 15:26 Lactate Sent. eh3 15:26 Blood Culture Adult (2) Sent. eh3 16:03 Procalcitonin Sent. eh3 16:27 Pt complained of being cold, provided another blanket and two hand warmers. eh3 16:36 Ananth Luong MD is Referral Physician. epi 16:37 Mitch Camp MD is Referral Physician. epi 17:45 No provider procedures requiring assistance completed. IV discontinued, intact, eh3 bleeding controlled, No redness/swelling at site. Pressure dressing applied. Administered Medications: 17:45 Discontinued: NS 0.9% 1000 ml IV at 125 ml/hr continuous eh3 15:50 Drug: vancoMYCIN 1 grams Route: IVPB; Infused Over: 2 hrs; Site: left antecubital; eh3 17:40 Follow up: Response: No adverse reaction; IV Status: Completed infusion; IV Intake: eh3 250ml 15:50 Drug: Meropenem 1 grams Route: IV; Rate: per protocol; Site: left antecubital; eh3 16:30 Follow up: Response: No adverse reaction; IV Status: Completed infusion; IV Intake: eh3 100ml 15:50 Drug: NS 0.9% 1000 ml Route: IV; Rate: 125 ml/hr; Site: left antecubital; eh3 17:45 Follow up: Response: No adverse reaction; IV Intake: 500ml eh3 17:23 Drug: Doxycycline 200 mg Route: PO; eh3 17:51 Follow up: Response: No adverse reaction eh3 17:23 Drug: KeFLEX (cephalexin) 500 mg Route: PO; eh3 17:51 Follow up: Response: No adverse reaction eh3 17:27 Drug: Silvadene (silver sulfADIAZINE) Cream 1 % 1 application Route: Topical; Site: eh3 affected area; 17:51 Follow up: Response: No adverse reaction eh3 Medication: 16:22 VIS not applicable for this client. eh3 Intake: 16:30 IV: 100ml; Total: 100ml. eh3 17:40 IV: 250ml; Total: 350ml. eh3 17:45 IV: 500ml; Total: 850ml. eh3 Outcome: 13:56 Decision to Hospitalize by Provider. [facility] 16:37 Discharge ordered by MD. [facility] 17:46 Discharged to home ambulatory. eh3 17:46 Condition: stable 17:46 Discharge instructions given to patient, significant other, Instructed on discharge instructions, follow up and referral plans. medication usage, Demonstrated understanding of instructions, follow-up care, medications, Prescriptions given X 3. 17:51 Patient left the ED. eh3 Signatures: Dispatcher [employer] EDKeith Rico MD MD cha Rivera, Diandra Tellez, RN RN tw2 Lalit, Denita 3 Adriana Le Corrections: (The following items were deleted from the chart) 12:49 12:46 General: Appears in no apparent distress. comfortable, Behavior is calm, eh3 cooperative, appropriate for age, eh3
--- NOTE | 2021-12-10 14:30 | RAD REPORT ---
EXAM DESCRIPTION: RAD - Chest Single View - 12/10/2021 2:13 pm CLINICAL HISTORY: COUGH COMPARISON: Two view chest 08/06/2021 TECHNIQUE: AP portable chest image was obtained 12/10/2021 2:13 pm . FINDINGS: No focal mass or consolidation. No significant failure or volume overload. Extensive basel ine fibrotic pattern matches comparison and could mask a mild interstitial edema or infiltrate. Two lead left subclavian pacemaker in place. Cardiac silhouette is enlarged similar to prior imaging. Trachea is midline. No measurable pleural effusion and no pneumothorax. No acute bony abnormality seen. No acute aortic findings suspected. IMPRESSION: Cardiomegaly similar to comparison. No significant failure or volume overload. Baseline prominent interstitial pattern could mask early interstitial edema or infiltrate.
[2021-12-10] MEDS ORDERED: NA CHLORIDE 0.9% 250 ML ONE (14:36)
[2021-12-10] MEDS ORDERED: VANCOMYCIN 1 GM/VIAL ONE (14:36)
[2021-12-10] MEDS ORDERED: Meropenem 1000 MG/VIAL IV ONE (14:36)
[2021-12-10 14:37] LABS: SARS-CoV-2 Antigen Rapid Res Negative (Negative)
[2021-12-10] MEDS ORDERED: NA CHLORIDE 0.9% 1,000 ML ONE (14:37)
[2021-12-10] MEDS ORDERED: NA CHLORIDE 0.9% 100 ML ONE (14:37)
--- NOTE | 2021-12-10 14:47 | RAD REPORT ---
EXAM DESCRIPTION: US - Extrem Venous W Compress Daniel - 12/10/2021 2:39 pm CLINICAL HISTORY: PAIN COMPARISON: None. TECHNIQUE: Real-time sonographic evaluation of the bilateral lower extremity common femoral, superfi cial femoral, popliteal and posterior tibial veins was performed. FINDINGS: Normal compressibility, flow augmentation, phasic flow and spontaneous flow are identified in the left and right lower extremity common femoral, superficial femoral, popliteal and posterior t ibial veins. No intraluminal filling defects seen. IMPRESSION: No DVT in either lower extremity.
[2021-12-10 15:39] LABS: Protime INR 1.53
[2021-12-10 15:40] LABS: Absolute Lymphocytes (CBC) 1.3 K/uL (0.7-4.9); Hematocrit 25.1 % (36.0-45.0); Lymphocytes % 25.7 % (15.3-44.8); MCV 93.7 fL (80-100); MPV 7.4 fL (7.6-11.3); RBC Red Blood Cell Count 2.67 M/uL (3.86-4.86)
[2021-12-10 15:59] LABS: Albumin 3.2 g/dL (3.4-5.0); Bilirubin Direct 0.7 mg/dL (0-0.2); Bilirubin Total 0.7 mg/dL (0.2-1.0); Magnesium 2.3 mg/dL (1.8-2.4); Protein, Total 7.1 g/dL (6.4-8.2)
[2021-12-10] MEDS ORDERED: DOXYCYCLINE 100 MG CAP PO ONE (17:16)
[2021-12-10] MEDS ORDERED: SILVER SULFADIAZINE 1% 25 GM TOP ONE (17:16)
[2021-12-10] MEDS ORDERED: CEPHALEXIN 250 MG CAP ONE (17:16)
--- NOTE | 2021-12-10 17:38 | P.PN ---
Date of Service: 12/10/21 I was called by Dr. Gonzalez to admit Ms. Salcido. Prior to beginning my interview process, she stated that she does not wish to be admitted to the hospital. I did not complete a full history and physical examination given that she did not wish to proceed further with the admission process. She appears hemodynamically stable on the cigarette making machine catcher. I have notified Dr. Gonzalez that she has declined admission. I recommended that he consider prescribing oral antibiotics for her right lower extremity cellulitis. If she changes her mind, and wishes to be admitted, I will be happy to reevaluate and admit her for IV antibiotics. Issac Salazar M.D.
[2021-12-10 19:03] VITALS: TEMP 97.8
[2021-12-10 19:15] VITALS: O2SAT 99
[2021-12-10 19:18] VITALS: BP 164/76
--- NOTE | 2021-12-11 10:33 | EKG ---
Test Date: 2021-12-10 Test Time: 14:07:48 Beater Tender: BRYCE MEASUREMENT RESULTS: Intervals: Rate: 72 [place]: QRSD: 118 QT: 420 QTc: 459 [place]: P: WA: QRS: -5 T: -84 INTERPRETIVE STATEMENTS: Atrial fibrillation Left ventricular hypertrophy with QRS widening Cannot rule out Septal infarct, age undetermined Marked ST abnormality, possible inferior subendocardial injury Abnormal ECG Compared to ECG 03/28/2020 14:31:51 ST (T wave) deviation now present Left-axis deviation no longer present Right bundle-branch block no longer present T-wave abnormality no longer present Possible ischemia no longer present Myocardial infarct finding still present Electronically Signed On 12-11-21 10:31:26 CDT by Odilon Parisi
== END 2021-12-10 17:51 | disposition home or self-care (01) ==
LOC: ER 12:10
DX: L03.115 Cellulitis of right lower limb (principal); I87.2 Venous insufficiency (chronic) (peripheral); E11.65 Type 2 diabetes mellitus with hyperglycemia; D64.9 Anemia, unspecified; I48.19 Other persistent atrial fibrillation; E66.9 Obesity, unspecified; Z68.36 Body mass index [BMI] 36.0-36.9, adult; I10 Essential (primary) hypertension; I50.9 Heart failure, unspecified; Z88.0 Allergy status to penicillin; Z88.2 Allergy status to sulfonamides; Z88.8 Allergy status to other drugs, medicaments and biological substances; Z85.3 Personal history of malignant neoplasm of breast; Z20.822 Contact with and (suspected) exposure to COVID-19
CPT/HCPCS: 87040; 85025; 80048; 36415; 83735; 85610; 80076; 83605; 84484; 84145; 83880; 71045; 93970; 87811; J3370; J2185; J7050; J7030; 93005

== ENCOUNTER 2022-02-25 11:22 | Inpatient (IN) | payer OTHER ==
--- OUTSIDE RECORDS SUMMARY | 2022-02-25 11:27 | XMS REPORT | Continuity of Care Document ---
:1945 Author Organization [facility] t Address [address] [place] [address] Care Team Providers Name Role Phone Cherise Ananth Ramon Primary Care Physician RICHARD OLIVAREZ Attending Clinician Unavailable AMINTA JONAS Attending Clinician Unavailable TERRIE JEAN Attending Clinician Unavailable PATY COOPER Attending Clinician Unavailable GIGI BLEDSOE Attending Clinician Unavailable UNIQUE FARNSWORTH Attending Clinician Unavailable Doctor Unassigned, [place] Attending Clinician Unavailable Sindhu Benjamin RN Attending Clinician Unavailable RANDI VILLARREAL Attending Clinician Unavailable Randi iVllarreal MD Attending Clinician Carloz Topete MD Attending Clinician BIANKA SOUSA Attending Clinician Unavailable CELESTE MARRERO Attending Clinician Unavailable MD BIANKA SOUSA Attending Clinician Unavailable RANDI VILLARREAL Admitting Clinician Unavailable Randi Villarreal MD Admitting Clinician BIANKA SOUSA Admitting Clinician Unavailable MD BIANKA SOUSA Admitting Clinician Unavailable Payers Payer Name Policy Type Policy Number Effective Date Expiration Date Cindy kemp [employer] MEDICARE PPO [id number] 2021 00:00:00 Problems Condition Condition Condition Status Onset Resolution Last Treating Co mments Source Name Details Category Date Date Treatment Clinician Date Jaundice Jaundice Disease Active Unive rs 7-03 ity of 00:00: [place] [facility] Tachycardi Tachycardi Disease Active M anjali alonzo a 2-17 st 00:00: Hospita 00 l Essential Essential Disease Active Uni vers hypertensi hypertensi 09-15 it y of on on 00:00: [place] [address] Medical Branch Atrial Atrial Disease Active Univers fibrillati fibrillati 09-15 it y of on on 00:00: [place] [address] Medical Branch Chronic Chronic Disease Active Univers anticoagul anticoagul 09-15 it y of ation ation 00:00: [place] [address] Medical Branch Postoperat Postoperat Disease Active U nivers yue pain yue pain 09-14 ity of 00:00: [place] [address] Medical Branch Allergies, Adverse Reactions, Alerts Allergy Allergy Status Severity Reaction(s) Onset Inactive Treating Comm ents Source Name Type Date Date Clinician AMLODIPI DRUG Active Low Hives 2021-0 MD NE INGREDI 8-01 Anderso BESYLATE 00:00: n 00 AMLODIPI DRUG Active Low Hives 2022-0 MD NE INGREDI 8- Anderso BESYLATE 00:00: n 00 AMLODIPI DRUG Active Low Hives 2021-0 MD NE INGREDI 8-01 Anderso BESYLATE 00:00: n 00 AMLODIPI DRUG Active Low Hives 2022-0 MD NE INGREDI 8- Anderso BESYLATE 00:00: n 00 AMLODIPI DRUG Active Low Hives 2021-0 MD NE INGREDI 8-01 Anderso BESYLATE 00:00: n 00 AMLODIPI DRUG Active Low Hives 2022-0 MD NE INGREDI 8-01 Anderso BESYLATE 00:00: n 00 AMLODIPI DRUG Active Low Hives 2-0 MD NE INGREDI 8-01 Anderso BESYLATE 00:00: n 00 AMLODIPI DRUG Active Low Hives 2022-0 MD NE INGREDI 8-01 Anderso BESYLATE 00:00: n 00 AMLODIPI DRUG Active Low Hives 2022-0 MD NE INGREDI 8-01 Anderso BESYLATE 00:00: n 00 AMLODIPI DRUG Active Low Hives 2022-0 MD NE INGREDI 8- Anderso BESYLATE 00:00: n 00 AMLODIPI DRUG Active Low Hives 2022-0 MD NE INGREDI 8- Anderso BESYLATE 00:00: n 00 AMLODIPI DRUG Active Low Hives 2022-0 MD NE INGREDI 8- Anderso BESYLATE 00:00: n 00 AMLODIPI DRUG Active Low Hives 2022-0 MD NE INGREDI 8- Anderso BESYLATE 00:00: n 00 AMLODIPI DRUG Active Low Hives 2022-0 MD NE INGREDI 8- Anderso BESYLATE 00:00: n 00 AMLODIPI DRUG Active Low Hives 2022-0 MD NE INGREDI 8- Anderso BESYLATE 00:00: n 00 AMLODIPI DRUG Active Low Hives 2-0 MD NE INGREDI 8- Anderso BESYLATE 00:00: n 00 AMLODIPI DRUG Active Low Hives 2-0 MD NE INGREDI 8- Anderso BESYLATE 00:00: n 00 AMLODIPI DRUG Active Low Hives 2-0 MD NE INGREDI 8- Anderso BESYLATE 00:00: n 00 AMLODIPI DRUG Active Low Hives 2-0 MD NE INGREDI 8- Anderso BESYLATE 00:00: n 00 AMLODIPI DRUG Active Low Hives 2-0 MD NE INGREDI 8- Anderso BESYLATE 00:00: n 00 AMLODIPI DRUG Active Low Hives 2022-0 MD NE INGREDI 8- Anderso BESYLATE 00:00: n 00 AMLODIPI DRUG Active Low Hives 2022-0 MD NE INGREDI 8- Anderso BESYLATE 00:00: n 00 AMLODIPI DRUG Active Low Hives 2022-0 MD NE INGREDI 8- Anderso BESYLATE 00:00: n 00 AMLODIPI DRUG Active Low Hives 2022-0 MD NE INGREDI 8-01 Anderso BESYLATE 00:00: n 00 AMLODIPI DRUG Active Low Hives 2022-0 MD NE INGREDI 8- Anderso BESYLATE 00:00: n 00 AMLODIPI DRUG Active Low Hives 2022-0 MD NE INGREDI 8-01 Anderso BESYLATE 00:00: n 00 AMLODIPI DRUG Active Low Hives 2022-0 MD NE INGREDI 8- Anderso BESYLATE 00:00: n 00 AMLODIPI DRUG Active Low Hives 2022-0 MD NE INGREDI 8- Anderso BESYLATE 00:00: n 00 AMLODIPI DRUG Active Low Hives 2022-0 MD NE INGREDI 8- Anderso BESYLATE 00:00: n 00 AMLODIPI DRUG Active Low Hives 2022-0 MD NE INGREDI 8- Anderso BESYLATE 00:00: n 00 AMLODIPI DRUG Active Low Hives 2-0 MD NE INGREDI 8- Anderso BESYLATE 00:00: n 00 AMLODIPI DRUG Active Low Hives 2-0 MD NE INGREDI 8- Anderso BESYLATE 00:00: n 00 AMLODIPI DRUG Active Low Hives 2021-0 MD NE INGREDI 8- Anderso BESYLATE 00:00: n 00 AMLODIPI DRUG Active Low Hives 2-0 MD NE INGREDI 8- Anderso BESYLATE 00:00: n 00 AMLODIPI DRUG Active Low Hives 2-0 MD NE INGREDI 8- Anderso BESYLATE 00:00: n 00 AMLODIPI DRUG Active Low Hives 2-0 MD NE INGREDI 8- Anderso BESYLATE 00:00: n 00 AMLODIPI DRUG Active Low Hives 2-0 MD NE INGREDI 8- Anderso BESYLATE 00:00: n 00 AMLODIPI DRUG Active Low Hives 2-0 MD NE INGREDI 8- Anderso BESYLATE 00:00: n 00 AMLODIPI DRUG Active Low Hives 2-0 MD NE INGREDI 8- Anderso BESYLATE 00:00: n 00 AMLODIPI DRUG Active Low Hives 2022-0 MD NE INGREDI 8- Anderso BESYLATE 00:00: n 00 AMLODIPI DRUG Active Low Hives 2022-0 MD NE INGREDI 8- Anderso BESYLATE 00:00: n 00 AMLODIPI DRUG Active Low Hives 2022-0 MD NE INGREDI 8- Anderso BESYLATE 00:00: n 00 AMLODIPI DRUG Active Low Hives 2-0 MD NE INGREDI 8- Anderso BESYLATE 00:00: n 00 AMLODIPI DRUG Active Low Hives 2-0 MD NE INGREDI 8-01 Anderso BESYLATE 00:00: n 00 AMLODIPI DRUG Active Low Hives 2022-0 MD NE INGREDI 8-01 Anderso BESYLATE 00:00: n 00 AMLODIPI DRUG Active Low Hives 2022-0 MD NE INGREDI 8- Anderso BESYLATE 00:00: n 00 AMLODIPI DRUG Active Low Hives 2-0 MD NE INGREDI 8-01 Anderso BESYLATE 00:00: n 00 AMLODIPI DRUG Active Low Hives 2-0 MD NE INGREDI 8- Anderso BESYLATE 00:00: n 00 AMLODIPI DRUG Active Low Hives 2-0 MD NE INGREDI 8- Anderso BESYLATE 00:00: n 00 AMLODIPI DRUG Active Low Hives 2-0 MD NE INGREDI 8- Anderso BESYLATE 00:00: n 00 AMLODIPI DRUG Active Low Hives 2-0 MD NE INGREDI 8- Anderso BESYLATE 00:00: n 00 AMLODIPI DRUG Active Low Hives 2-0 MD NE INGREDI 8- Anderso BESYLATE 00:00: n 00 AMLODIPI DRUG Active Low Hives 2-0 MD NE INGREDI 8- Anderso BESYLATE 00:00: n 00 AMLODIPI DRUG Active Low Hives 2-0 MD NE INGREDI 8- Anderso BESYLATE 00:00: n 00 AMLODIPI DRUG Active Low Hives 2-0 MD NE INGREDI 8- Anderso BESYLATE 00:00: n 00 AMLODIPI DRUG Active Low Hives 2-0 MD NE INGREDI 8- Anderso BESYLATE 00:00: n 00 AMLODIPI DRUG Active Low Hives 2-0 MD NE INGREDI 8-01 Anderso BESYLATE 00:00: n 00 AMLODIPI DRUG Active Low Hives 2-0 MD NE INGREDI 8- Anderso BESYLATE 00:00: n 00 AMLODIPI DRUG Active Low Hives 2-0 MD NE INGREDI 8-01 Anderso BESYLATE 00:00: n 00 AMLODIPI DRUG Active Low Hives 2-0 MD NE INGREDI 8- Anderso BESYLATE 00:00: n 00 AMLODIPI DRUG Active Low Hives 2022-0 MD NE INGREDI 8-01 Anderso BESYLATE 00:00: n 00 AMLODIPI DRUG Active Low Hives 2022-0 MD NE INGREDI 8-01 Anderso BESYLATE 00:00: n 00 AMLODIPI DRUG Active Low Hives 2022-0 MD NE INGREDI 8-01 Anderso BESYLATE 00:00: n 00 AMLODIPI DRUG Active Low Hives 2022-0 MD NE INGREDI 8-01 Anderso BESYLATE 00:00: n 00 AMLODIPI DRUG Active Low Hives 2-0 MD NE INGREDI 8-01 Anderso BESYLATE 00:00: n 00 AMLODIPI DRUG Active Low Hives 2-0 MD NE INGREDI 8- Anderso BESYLATE 00:00: n 00 AMLODIPI DRUG Active Low Hives 2-0 MD NE INGREDI 8-01 Anderso BESYLATE 00:00: n 00 AMLODIPI DRUG Active Low Hives 2-0 MD NE INGREDI 8- Anderso BESYLATE 00:00: n 00 AMLODIPI DRUG Active Low Hives 2-0 MD NE INGREDI 8-01 Anderso BESYLATE 00:00: n 00 Penicill Propensi Active Rash 2020-0 Method i ins ty to 2-17 st adverse 00:00: Hospita reaction 00 l s to drug PENICILL Drug Active Low Rash 2019-0 MD [...] 00:00: [place] reaction 00 Medical s Branch Family History Family Member Diagnosis Comments Start Date Stop Date Source Natural brother Cancer [facility] Natural father Mental illness Method [facility] Natural mother [facility] Natural sister Cancer [facility] Social History Social Habit Start Date Stop Date Quantity Comments Source History [facility] Drinks History SDOH [facility] Exposure to 2021-10-30 2021-11-09 Not sure [facility]-CoV-2 00:00:00 15:36:00 [place] [facility] (event) [facility] Alcohol intake 2020-07-16 2020-07-16 Lifetime [facility] 00:00:00 00:00:00 non-drinker Hospital (finding) History SDOH 2020-06-28 2020-06-28 1 [facility] Alcohol Frequency 00:00:00 00:00:00 Hospita l Tobacco use and 2018-09-12 2018-09-12 Smokeless tobacco Un iversity of exposure 00:00:00 00:00:00 non-user [facility] Sex [birth year] [facility] 00:00:00 00:00:00 Hospital Smoking Status Start Date Stop Date Source [facility] Medications Ordered Filled Start Stop Current Ordering Indication Dosage Frequency Signature Comments Components Source Medication Medication Date Date Medication? Clinician (SIG) Name Name amLODIPine Yes [id number] 10mg Take 1 U nivers 10 mg 7-08 tablet by ity of tablet 00:00: mouth [place] 00 daily. Medical Branch pantoprazol Yes [id number] 40mg Take 1 Univers e 40 mg EC 7-08 tablet by ity of tablet 00:00: mouth [place] 00 daily. Medical Branch triamcinolo Yes Apply to Un gallito ne 7-08 affected ity of acetonide 00:00: area(s) [place] 0.1 % cream 00 daily. Medica l Branch amLODIPine Yes [id number] 10mg Take 1 U nivers 10 mg 7-08 tablet by ity of tablet 00:00: mouth [place] 00 daily. Medical Branch pantoprazol Yes [id number] 40mg Take 1 Univers e 40 mg EC 7-08 tablet by ity of tablet 00:00: mouth [place] 00 daily. Medical Branch triamcinolo Yes Apply to Un gallito ne 7-08 affected ity of acetonide 00:00: area(s) [place] 0.1 % cream 00 daily. Medica l Branch amLODIPine Yes [id number] 10mg Take 1 U nivers 10 mg 7-08 tablet by ity of tablet 00:00: mouth [place] 00 daily. Medical Branch pantoprazol Yes [id number] 40mg Take 1 Univers e 40 mg EC 7-08 tablet by ity of tablet 00:00: mouth [place] 00 daily. Medical Branch triamcinolo Yes Apply to Un gallito ne 7-08 affected ity of acetonide 00:00: area(s) [place] 0.1 % cream 00 daily. Medica l Branch amLODIPine Yes [id number] 10mg Take 1 U nivers 10 mg 7-08 tablet by ity of tablet 00:00: mouth [place] 00 daily. Medical Branch pantoprazol Yes [id number] 40mg Take 1 Univers e 40 mg EC 7-08 tablet by ity of tablet 00:00: mouth [place] 00 daily. Medical Branch triamcinolo Yes Apply to Un gallito ne 7-08 affected ity of acetonide 00:00: area(s) [place] 0.1 % cream 00 daily. Medica l [...] ER 10meq, take 2 tabs daily torsemide Yes 20mg Take 20 mg Un [place] 20 mg 7-07 by mouth ity of tablet 17:26: daily. Medical Branch loratadine Yes 5mg Take 5 mg [place] (CLARITIN 7-07 by mouth. ity o f ORAL) 17:26: Medical Branch glipiZIDE Yes 5mg Take 5 mg [...] by mouth ity of tablet 17:26: daily. [address] Branch loratadine 2022-0 Yes 5mg Take 5 mg [place] (CLARITIN 7-07 by mouth. ity o f ORAL) 17:26: [address] Branch glipiZIDE 2022-0 Yes 5mg Take 5 mg Uni vers XL 5 mg 24 7-07 by mouth ity o f hr tablet 17:26: [place] 03 breakfast. Medical Branch potassium 2022-0 Yes 10meq Take 10 Univ ers chloride 10 7-07 mEq by ity of mEq CR 17:26: mouth 2 [place] tablet 03 (two) Medical times [place] daily. Potassium Cloride ER 10meq, take 2 tabs daily torsemide 2022-0 Yes 20mg Take 20 mg [place] 20 mg 7-07 by mouth ity of tablet 17:26: daily. [address] loratadine 2-0 Yes 5mg Take 5 mg Un [place] (CLARITIN 7-07 by mouth. ity o f ORAL) 17:26: [address] Branch glipiZIDE 2-0 Yes 5mg Take [...] by mouth ity of tablet 17:26: daily. [address] loratadine 2022-0 Yes 5mg Take 5 mg [place] (CLARITIN 7-07 by mouth. ity o f ORAL) 17:26: [address] Branch apixaban 5 2-0 Yes 5mg Take 1 Unive rs mg tablet 7-07 tablet by ity o f 00:00: mouth 2 [place] 00 (two) Medical times Branch daily. metoprolol [...] tablet 00 (two) Medical times Branch daily. potassium Yes 20meq Q.5D Take 20 Meth hoa chloride 2-[address] (K-DUR) 10 12:25: mouth 2 Hosp jr MEQ CR 00 (two) l tablet times a day. losartan-hy Yes 1{tbl} QD Take 1 Me thodi drochloroth 2-[address] iazide 12:25: mouth Hospita (HYZAAR) 00 daily. l 100-12.5 mg Dose per tablet unkown torsemide Yes 20mg QD Take 20 mg Me thodi (DEMADEX) 2-[address] 20 MG 12:25: daily. Hospita tablet 00 l dabigatran 0 Yes 150mg Q.5D Take 1 Meth hoa etexilate 2-[address] (PRADAXA) 00:00: (150 mg Hospi ta 150 mg 00 total) by l capsu mouth 2 (two) times a day. Procedures Procedure Date / Time Performing Clinician Source Performed EXTERNAL PROVIDER 2021-11-27 05:01:00 Doctor Unassigned, No [facility] Branch AUTHORIZATION FOR 2021-11-20 05:01:00 Doctor Unassigned, No [facility] RELEASE OF PHI Name Medical Branch Plan of Care Planned Activity Planned Date Details Comments Source Future Scheduled 2022-02-25 HEPATITIS B VACCINES Met [facility] Test 11:25:50 (1 of 3 - 3-dose series) [code = HEPATITIS B VACCINES (1 of 3 - 3-dose series)] Future Scheduled 2022-02-25 COVID-19 VACCINE (#1) [facility] Test 11:25:50 [code = COVID-19 VACCINE (#1)] Future Scheduled 2022-02-25 Hepatitis C screening [facility] Test 11:25:50 (procedure) [code = 895940704] Future Scheduled 2022-02-25 COLONOSCOPY SCREENING [facility] Test 11:25:50 [code = COLONOSCOPY SCREENING] Future Scheduled 2022-02-25 SHINGLES VACCINES (1 Met [facility] Test 11:25:50 of 2) [code = SHINGLES VACCINES (1 of 2)] Future Scheduled 2022-02-25 65+ [facility]AL [facility] 11:25:50 VACCINE (1 - PCV) [code = 65+ PNEUMOCOCCAL VACCINE (1 - PCV)] Future Scheduled 2022-02-25 INFLUENZA VACCINE Method [facility] Test 11:25:50 [code = INFLUENZA VACCINE] Encounters Start End Encounter Admission Attending Care Care Encounter Source Date/Time Date/Time Type Type Clinicians Facility Department ID 2022-02-10 2022-02-10 Outpatient VICTOR M DUKES MDA MDA [id number] 13:55:09 15:52:35 Ham GRAY 2022-02-09 2022-02-09 Outpatient VICTOR M DUKES MDA MDA [id number] 12:50:42 23:59:00 Ham GRAY 2022-02-09 2022-02-09 Outpatient VICTOR M DUKES MDA MDA [id number] 13:03:48 16:24:28 Ham GRAY 2022-01-20 2022-01-20 Outpatient EL PRITESH, MDA MDA [id number] 15:27:21 17:36:53 AMINTA johnson 2022-01-20 2022-01-20 Outpatient EL PRITESH, MDA MDA [id number] 15:09:11 15:26:45 AMINTA johnson 2022-01-20 2022-01-20 Outpatient EL ROSELINE MDA MDA [id number] 14:46:40 14:46:40 Ham GRAY 2022-01-13 2022-01-14 Outpatient EL ROSELINE MDA MDA [id number] 15:12:34 07:24:20 Ham GRAY 2022-01-06 2022-01-06 Outpatient EL MIRANDA, MDA MDA [id number] 11:06:31 11:58:23 TERRIE johnson 2022-01-05 2022-01-05 Outpatient EL SCHLEMBACH, MDA MDA [id number] 18:00:00 23:59:00 PATY johnson 2022-01-05 2022-01-05 Outpatient EL SCHLEMBACH, MDA MDA [id number] 16:24:43 17:59:00 PATY johnson 2022-01-05 2022-01-05 Outpatient EL FOLLODER, MDA MDA [id number] 13:16:47 16:23:00 GIGI johnson 2022-01-05 2022-01-05 Outpatient EL FOLLODER, MDA MDA [id number] 07:21:28 12:53:00 GIGI johnson 2022-01-05 2022-01-05 Outpatient EL SCHLEMBACH, MDA MDA [id number] 07:56:57 12:04:56 PATY johnson 2022-01-05 2022-01-05 Outpatient EL FOLLODER, MDA MDA [id number] 07:57:23 07:57:23 GIGI johnson 2022-01-05 2022-01-05 Outpatient EL FOLLODER, MDA MDA [id number] 07:00:00 07:20:00 GIGI johnson 2021-12-22 2021-12-22 Outpatient EL ROSELINE MDA MDA [id number] 13:00:56 14:15:24 Ham GRAY 2021-12-10 2021-12-10 Outpatient EL ROESLINE MDA MDA [id number] 10:00:10 10:00:10 Ham GRAY 2021-12-08 2021-12-08 Outpatient EL FARNSWORTH, MDA MDA [id number] 16:45:00 23:59:00 UNIQUE brooks n 2021-12-08 2021-12-08 Outpatient EL DAJA, MDA MDA [id number] 18:07:49 18:07:49 UNIQUE brooks n 2021-12-08 2021-12-08 Outpatient EL ROSELINE MDA MDA [id number] 14:12:24 16:35:30 Ham GRAY 2021-12-08 2021-12-08 Outpatient VICTOR M COOPER, MDA MDA [id number] 14:10:28 14:12:48 PATY johnson 2021-11-27 2021-11-27 Orders Doctor OTIS [id number] Univers 00:00:00 00:00:00 Only Unassigned, CARLA [id number] ity of [place] [facility] [id number] Yovanny as [id number] [facility] 009 Branch 2021-11-20 2021-11-20 Orders Doctor BERG [id number] Univers 00:00:00 00:00:00 Only Unassigned, CARLA [id number] ity of [place] [facility] [id number] Yovanny as [id number] [facility] 009 Branch 2021-11-14 2021-11-14 Transition DAVI Bnejamin [id number] Univers 00:00:00 00:00:00 of Care Sindhu MON[place] [id number] [id number] [id number] [facility] 403 Branch 2021-11-09 2021-11-13 Inpatient [facility] [id number] Univers 00:58:00 15:43:00 RANDI yg [facility] 2021-11-09 2021-11-13 [facility] MARYURI Villarreal [id number] Univers 00:58:00 15:43:00 Encounter Randi Durham CARLA [id number] ity [facility] [id number] Yovanny as [id number] [facility] 090 Branch 2021-11-09 2021-11-13 Inpatient [facility] [id number] Univers 00:58:00 15:43:00 RANDI [facility] 2021-11-12 2021-11-12 [facility] [id number] Univers 00:00:00 00:00:00 plinary Carloz Y HEALTH [id number] i ty [facility] [id number] [place] [id number] [facility] [address] [place] 2021-11-11 2021-11-11 Surgery [facility] [id number] Univers 10:47:00 12:33:00 Carloz ICAL [id number] [facility] [id number] Yovanny as BLDG [id number] [facility] 020 Branch 2020-06-26 2020-06-29 Inpatient MERRY, [facility] [id number] [place] 00:00:00 00:00:00 BIANKA [address] 2020-06-28 2020-06-28 Outpatient MARRERO, [facility] [id number] [place] 00:00:00 00:00:00 CELESTE [address] 2020-06-27 2020-06-27 [facility] [id number] [place] 00:00:00 00:00:00 CELESTE [address] Results Test Description Test Time Test Comments Results Result Comments Source SARS-CoV-2 (COVID-19) RNA [Presence] in Respiratory sp ecimen by 2020-06-26 21:47:04 LAUREANO with probe detection Test Item Value Reference Range Interpretation Comme nts SARS-CoV-2 (COVID-19) RNA [Presence] in Respiratory Not detected No t-Detected specimen by LAUREANO with probe detection (test code = 65604-4) CHLOE ZULETA
--- NOTE | 2022-02-25 12:04 | RAD REPORT ---
EXAM DESCRIPTION: RAD - Chest Single View - 02/25/2022 11:54 am CLINICAL HISTORY: SOB COMPARISON: Portable 12/10/2021 TECHNIQUE: AP portable chest image was obtained 02/25/2022 11:54 am . FINDINGS: Interstitial fibrotic changes evident with prominent interstitial markings throughout the lung singh, accentuated by shallow inspiration. No focal mass or consolidations seen in the mid or u pper lung singh. Lung base atelectasis is present potentially masking lung base interstitial infiltr ates. Small left pleural effusion could also be present. Heart size is upper normal. Upper lobe vasculature within range of normal. 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 No pneumothorax. No acute bony abnormality seen. No acute aortic findings suspected. IMPRESSION: Chronic interstitial lung pattern accentuated by shallow inspiration. Atelectasis and/ or infiltrate of the lung bases cannot be excluded. Small right pleural effusion cou ld also be present.
--- NOTE | 2022-02-25 15:06 | ER ---
Nurse's Notes [facility] Name: Carmina Salcido Age: 76 yrs Sex: Female : 1945 Arrival Date: 02/25/2022 Time: 11:23 Bed 27 Private MD: Ananth Luong E Diagnosis: Unspecified combined systolic (congestive) and diastolic (congestive) heart failure;Chronic atrial fibrillation;Generalized edema Presentation: 02/25 11:41 Chief complaint: Patient states: SOB X 2 weeks. 100% RA upon arrival to ER. Coronavirus ld1 screen: At this time, the client does not indicate any symptoms associated with coronavirus-19. Ebola Screen: No symptoms or risks identified at this time. Initial Sepsis Screen: Does the patient meet any 2 criteria? No. Patient's initial sepsis screen is negative. Does the patient have a suspected source of infection? No. Patient's initial sepsis screen is negative. Risk Assessment: Do you want to hurt yourself or someone else? Patient reports no desire to harm self or others. Onset of symptoms was February 25, 2022. 11:41 Method Of Arrival: Wheelchair ld1 11:41 Acuity: ALANA 3 ld1 Triage Assessment: 11:44 General: Appears in no apparent distress. comfortable, Behavior is calm, cooperative, ld1 appropriate for age. Pain: Denies pain. EENT: No signs and/or symptoms were reported regarding the EENT system. Neuro: Level of Consciousness is awake, alert, obeys commands, Oriented to person, place, time, situation. Cardiovascular: Capillary refill < 3 seconds Patient's skin is warm and dry. Respiratory: Reports shortness of breath at rest on exertion cough that is Airway is patent Respiratory effort is even, unlabored. Respiratory: Onset: The symptoms/episode began/occurred 2 weeks, the patient has mild shortness of breath. GI: Abdomen is round non-distended. : No signs and/or symptoms were reported regarding the genitourinary system. Derm: No signs and/or symptoms reported regarding the dermatologic system. Musculoskeletal: No signs and/or symptoms reported regarding the musculoskeletal system. Historical: - Allergies: 11:42 amlodipine (Anaphylaxis); with swelling in mouth \T\ systemic; ld1 11:42 metronidazole; ld1 11:42 PENICILLINS; ld1 - PMHx: 11:42 Atrial Fib; BILE DUCT CANCER; breast cancer; NO IV or BP cuff to Right arm; CHF; ld1 Hypertension; 11:44 Pacemaker; ld1 - PSHx: 11:42 Hysterectomy; Mastectomy; ld1 - Immunization history:: Adult Immunizations up to date, Client reports receiving the 2nd dose of the Covid vaccine. - Social history:: Smoking status: Patient denies any tobacco usage or history of. Patient/guardian denies using alcohol. Screenin:45 Abuse screen: Denies threats or abuse. Denies injuries from another. Nutritional eh3 screening: No deficits noted. Tuberculosis screening: No symptoms or risk factors identified. Fall Risk None identified. 13:45 The patient is alert, able to follow commands. The patient does not exhibit slurred or eh3 garbled speech The patient is not exhibiting difficulty speaking. The patient does not exhibit difficulty understanding words. The patient is able to swallow own secretions with no drooling or need for suction. Patient tolerated one teaspoon of water. No drooling, immediate coughing, gurgling, or clearing of the throat was noted. The patient tolerated 90mL of water. No drooling, immediate coughing, gurgling, or clearing of the throat was noted. The patient passed the bedside swallow screening. Oral medications may be given as ordered. Contact Physician for further diet orders. Assessment: 13:45 General: Appears in no apparent distress. uncomfortable, Behavior is calm, cooperative, eh3 appropriate for age. Pain: Denies pain. Neuro: Level of Consciousness is awake, alert, obeys commands, Oriented to person, place, time, situation. Cardiovascular: Capillary refill < 3 seconds Patient's skin is warm and dry. Rhythm is sinus tachycardia. Respiratory: Reports shortness of breath at rest labored breathing Airway is patent Respiratory effort is even, labored, shallow, Breath sounds with crackles bilaterally. 14:45 Reassessment: Patient and/or family updated on plan of care and expected duration. Pain eh3 level reassessed. Patient is alert, oriented x 3, equal unlabored respirations, skin warm/dry/pink. 15:45 Reassessment: Patient and/or family updated on plan of care and expected duration. Pain eh3 level reassessed. Patient is alert, oriented x 3, equal unlabored respirations, skin warm/dry/pink. 16:45 Reassessment: Patient and/or family updated on plan of care and expected duration. Pain eh3 level reassessed. Patient is alert, oriented x 3, equal unlabored respirations, skin warm/dry/pink. 17:45 Reassessment: Patient and/or family updated on plan of care and expected duration. Pain eh3 level reassessed. Patient is alert, oriented x 3, equal unlabored respirations, skin warm/dry/pink. 19:00 Reassessment: Patient and/or family updated on plan of care and expected duration. Pain eh3 level reassessed. Patient is alert, oriented x 3, equal unlabored respirations, skin warm/dry/pink. Vital Signs: 11:41 BP 143 / 74; Pulse 110; Resp 22; Temp 97.8(O); Pulse Ox 100% on R/A; Weight 98.43 kg; ld1 Height 5 ft. 5 in. (165.10 cm); Pain 0/10; 13:45 BP 155 / 83; Pulse 111; Resp 34; Pulse Ox 100% on R/A; eh3 14:45 BP 114 / 94; Pulse 121; Resp 39; Pulse Ox 100% on R/A; eh3 15:45 BP 110 / 80; Pulse 110; Resp 97; Pulse Ox 99% on R/A; eh3 18:15 BP 135 / 82; Pulse 104; Resp 24; Pulse Ox 95% on R/A; eh3 19:00 BP 119 / 68; Pulse 93; Resp 22; Pulse Ox 97% on R/A; eh3 11:41 Body Mass Index 36.11 (98.43 kg, 165.10 cm) ld1 ED Course: 11:23 Patient arrived in ED. am2 11:23 Ananth Luong MD is Private Physician. am2 11:42 Triage completed. ld1 11:44 Arm band placed on right wrist. ld1 11:56 XRAY Chest (1 view) In Process Unspecified. EDMS 11:56 Keith Gonzalez MD is Attending Physician. epi 13:45 Patient has correct armband on for positive identification. Placed in gown. Bed in low eh3 position. Call light in reach. Side rails up X2. Adult w/ patient. Client placed on continuous cardiac and pulse oximetry monitoring. NIBP monitoring applied. site monitor on. Door closed. Noise minimized. Lights dimmed. Warm blanket given. Pillow given. 13:58 Denita Cohn, RN is Primary Nurse. [facility] 14:00 Diet: Patient given water. Tolerated well. 3 14:00 Missed attempt(s): 20 gauge in left antecubital area. Bleeding controlled, band aid 3 applied, catheter tip intact. 14:30 Inserted saline lock: 18 gauge in left EJ, using aseptic technique. IV inserted by [facility] Keith Gonzlaez MD. 15:05 Ghislaine West MD is Hospitalizing Provider. [facility] 16:32 BIPAP Sent. 3 20:02 No provider procedures requiring assistance completed. Patient admitted, IV remains in [address] Administered Medications: 15:40 Drug: amiodarone 150 mg Volume: 100 ml; Route: IVPB; Infused Over: 10 mins; Site: left eh3 jugular; 15:50 Follow up: IV Status: Completed infusion; IV Intake: 100ml [facility] 16:15 Drug: Lasix (furosemide) 60 mg Route: IVP; Site: left jugular; [facility] 16:52 Follow up: Response: No adverse reaction [facility] 16:30 Drug: amiodarone 900 mg, D5W 500 ml Route: IVPB; Rate: 1 mg/min; Site: left jugular; [facility] 02/26 00:00 Follow up: IV Status: Infusion continued upon admission [facility] 02/25 16:30 Drug: Tylenol 650 mg Route: PO; [facility] 18:38 Follow up: Response: Pain is decreased [facility] 18:38 Drug: Magnesium Sulfate 1 grams Route: IVPB; Infused Over: 1 hrs; Site: left 3 antecubital; 19:45 Follow up: Response: No adverse reaction; IV Status: Completed infusion; IV Intake: eh3 100ml Medication: 20:02 VIS not applicable for this client. [facility] Intake: 15:50 IV: 100ml; Total: 100ml. 3 19:45 IV: 100ml; Total: 200ml. [facility] Outcome: 15:06 Decision to Hospitalize by Provider. [facility] 20:02 Admitted to ER Hold. Please see [facility] for further documentation. 3 20:02 Condition: stable 20:02 Instructed on the need for admit. 22:07 Patient left the ED. mw2 Signatures: Dispatcher [employer] EDKeith Rico MD MD cha Ellison, Rosalia am2 Radha, Calixto mw2 Kiley Juan, RN RN ld1 Denita Cohn RN RN eh3
--- NOTE | 2022-02-25 15:07 | EDPHYS ---
Physician Documentation [facility] Name: Carmina Salcido Age: 76 yrs Sex: Female : 1945 Arrival Date: 02/25/2022 Time: 11:23 Bed 27 Private MD: Ananth Luong E ED Physician Keith Gonzalez HPI: 02/25 15:00 This 76 yrs old Female presents to ER via Wheelchair with complaints of epi Shortness Of Breath, fluid build up. 15:00 The patient has shortness of breath at rest, with light activity. Onset: The epi symptoms/episode began/occurred 3 day(s) ago. Duration: The symptoms are continuous, and are steadily getting worse. The patient's shortness of breath is aggravated by coughing, exertion, light activity, supine position. Associated signs and symptoms: Pertinent positives: non-productive cough. Severity of symptoms: At their worst the symptoms were moderate in the emergency department the symptoms are unchanged. The patient has experienced similar episodes in the past, multiple times. . Historical: - Allergies: 11:42 amlodipine (Anaphylaxis); with swelling in mouth \T\ systemic; ld1 11:42 metronidazole; ld1 11:42 PENICILLINS; ld1 - PMHx: 11:42 Atrial Fib; BILE DUCT CANCER; breast cancer; NO IV or BP cuff to Right arm; CHF; ld1 Hypertension; 11:44 Pacemaker; ld1 - PSHx: 11:42 Hysterectomy; Mastectomy; ld1 - Immunization history:: Adult Immunizations up to date, Client reports receiving the 2nd dose of the Covid vaccine. - Social history:: Smoking status: Patient denies any tobacco usage or history of. Patient/guardian denies using alcohol. ROS: 15:01 Constitutional: Negative for fever, chills, and weight loss, Eyes: Negative for injury, epi pain, redness, and discharge, ENT: Negative for injury, pain, and discharge, Neck: Negative for injury, pain, and swelling, Back: Negative for injury and pain, : Negative for injury, bleeding, discharge, and swelling, Skin: Negative for injury, rash, and discoloration, Neuro: Negative for headache, weakness, numbness, tingling, and seizure, Psych: Negative for depression, anxiety, suicide ideation, homicidal ideation, and hallucinations, Allergy/Immunology: Negative for hives, rash, and allergies, Endocrine: Negative for neck swelling, polydipsia, polyuria, polyphagia, and marked weight changes, Hematologic/Lymphatic: Negative for swollen nodes, abnormal bleeding, and unusual bruising. 15:01 Cardiovascular: Positive for chest pain, palpitations. 15:01 Respiratory: Positive for cough, shortness of breath, wheezing, expiratory. 15:01 Abdomen/GI: Positive for abdominal distension. 15:01 MS/extremity: Positive for swelling, of the right leg and left leg. Exam: 15:01 Constitutional: This is a well developed, well nourished patient who is awake, alert, epi and in no acute distress. Head/Face: Normocephalic, atraumatic. Eyes: Pupils equal round and reactive to light, extra-ocular motions intact. Lids and lashes normal. Conjunctiva and sclera are non-icteric and not injected. Cornea within normal limits. Periorbital areas with no swelling, redness, or edema. ENT: Nares patent. No nasal discharge, no septal abnormalities noted. Tympanic membranes are normal and external auditory canals are clear. Oropharynx with no redness, swelling, or masses, exudates, or evidence of obstruction, uvula midline. Mucous membranes moist. Neck: Trachea midline, no thyromegaly or masses palpated, and no cervical lymphadenopathy. Supple, full range of motion without nuchal rigidity, or vertebral point tenderness. No Meningismus. Chest/axilla: Normal chest wall appearance and motion. Nontender with no deformity. No lesions are appreciated. Abdomen/GI: Soft, non-tender, with normal bowel sounds. No distension or tympany. No guarding or rebound. No evidence of tenderness throughout. Back: No spinal tenderness. No costovertebral tenderness. Full range of motion. Female : Normal external genitalia. Skin: Warm, dry with normal turgor. Normal color with no rashes, no lesions, and no evidence of cellulitis. Neuro: Awake and alert, GCS 15, oriented to person, place, time, and situation. Cranial nerves II-XII grossly intact. Motor strength 5/5 in all extremities. Sensory grossly intact. Cerebellar exam normal. Normal gait. Psych: Awake, alert, with orientation to person, place and time. Behavior, mood, and affect are within normal limits. 15:01 Cardiovascular: Rate: tachycardic, actual rate is 121 bpm, Rhythm: irregularly irregular, Pulses: Pulses are 4+ in bilateral radial, brachial, femoral, popliteal, posterior tibial and and dorsalis pedis arteries.. Heart sounds: normal, Edema: 4+ edema to level of left midcalf and right midcalf, JVD: is noted bilaterally, to the angle of the jaw. 15:01 ECG was reviewed by the Attending Physician. Vital Signs: 11:41 BP 143 / 74; Pulse 110; Resp 22; Temp 97.8(O); Pulse Ox 100% on R/A; Weight 98.43 kg; ld1 Height 5 ft. 5 in. (165.10 cm); Pain 0/10; 13:45 BP 155 / 83; Pulse 111; Resp 34; Pulse Ox 100% on R/A; eh3 14:45 BP 114 / 94; Pulse 121; Resp 39; Pulse Ox 100% on R/A; eh3 15:45 BP 110 / 80; Pulse 110; Resp 97; Pulse Ox 99% on R/A; eh3 18:15 BP 135 / 82; Pulse 104; Resp 24; Pulse Ox 95% on R/A; eh3 19:00 BP 119 / 68; Pulse 93; Resp 22; Pulse Ox 97% on R/A; eh3 11:41 Body Mass Index 36.11 (98.43 kg, 165.10 cm) ld1 MDM: 11:56 Patient medically screened. epi 15:04 Differential diagnosis: Anemia CHF exacerbation, flu, URI, arrythmia, dehydration, epi pneumonia, Pneumothorax pulmonary edema, Pulmonary Embolism reactive airway disease, Unstable Angina. Antibiotic administration: Not indicated. The patient's Wells Deep Vein Thrombosis Score was calculated as follows: Heart Rate >100 BPM (1.5 Pts) Total Score: 0-2 Pts- Low Risk. The patient's pulmonary embolism risk score was calculated as follows: the patients heart rate is greater than 100 beats per minute (1.5 Pts) Total Score: 0-2 points. This patient was found to be at low risk for a pulmonary embolism by using the Well's assessment criteria. Immunization status: Pneumococcal vaccine: Influenza vaccine: Data reviewed: vital signs, nurses notes, lab test result(s), EKG, radiologic studies, plain films. Data interpreted: [employer]: rate is 110 beats/min, rhythm is atrial fibrillation, Pulse oximetry: on room air is 100 %. Test interpretation: by ED physician or midlevel provider: ECG, plain radiologic studies. Counseling: I had a detailed discussion with the patient and/or guardian regarding: the historical points, exam findings, and any diagnostic results supporting the discharge/admit diagnosis, the presence of at least one elevated blood pressure reading (>120/80) during this emergency department visit, radiology results, the need for further work-up and treatment in the hospital. 02/25 11:35 Order name: Basic Metabolic Panel; Complete Time: 15:54 [facility] 02/25 11:35 Order name: CBC with Diff; Complete Time: 15:54 [facility] 02/25 11:35 Order name: Troponin HS; Complete Time: 15:54 [facility] 02/25 11:58 Order name: LFT's; Complete Time: 15:54 [facility] 02/25 11:58 Order name: Magnesium; Complete Time: 15:54 [facility] 02/25 11:58 Order name: NT PRO-BNP; Complete Time: 15:54 [facility] 02/25 11:35 Order name: XRAY Chest (1 view); Complete Time: 14:28 [facility] 02/25 11:58 Order name: PT-INR; Complete Time: 15:54 [facility] 02/25 11:58 Order name: SARS RAPID; Complete Time: 15:54 [facility] 02/25 16:18 Order name: BIPAP [facility] 02/25 19:16 Order name: Phosphorus; Complete Time: 21:01 [facility] 02/25 19:16 Order name: T4 Free; Complete Time: 21:01 [facility] 02/25 19:16 Order name: Magnesium; Complete Time: 21:01 [facility] 02/25 19:16 Order name: Thyroid Stimulating Hormone; Complete Time: 21:01 [facility] 02/25 11:35 Order name: EKG; Complete Time: 11:36 [facility] 02/25 11:35 Order name: Cardiac monitoring; Complete Time: 13:58 [facility] 02/25 11:35 Order name: EKG - Nurse/Tech; Complete Time: 14:50 [facility] 02/25 11:35 Order name: IV Saline Lock; Complete Time: 14:50 [facility] 02/25 11:35 Order name: Labs collected and sent; Complete Time: 14:50 [facility] 02/25 11:35 Order name: O2 Per Protocol; Complete Time: 13:58 ld1 02/25 11:35 Order name: O2 Sat Monitoring; Complete Time: 13:58 ld1 02/25 11:58 Order name: IV Saline Lock - Large Bore; Complete Time: 14:49 epi 02/25 14:59 Order name: Sher; Complete Time: 16:15 epi 02/25 18:23 Order name: CT; Complete Time: 21:01 EDMS EC:01 Rate is 121 beats/min. Rhythm is irregularly irregular. QRS Clyde is Normal. VT interval epi is normal. QRS interval is normal. QT interval is normal. No Q waves. T waves are Normal. No ST changes noted. Clinical impression: Atrial Fibrillation. Interpreted by me. Reviewed by me. Administered Medications: 15:40 Drug: amiodarone 150 mg Volume: 100 ml; Route: IVPB; Infused Over: 10 mins; Site: left 3 jugular; 15:50 Follow up: IV Status: Completed infusion; IV Intake: 100ml [facility] 16:15 Drug: Lasix (furosemide) 60 mg Route: IVP; Site: left jugular; [facility] 16:52 Follow up: Response: No adverse reaction [facility] 16:30 Drug: amiodarone 900 mg, D5W 500 ml Route: IVPB; Rate: 1 mg/min; Site: left jugular; [facility] 02/26 00:00 Follow up: IV Status: Infusion continued upon admission [facility] 02/25 16:30 Drug: Tylenol 650 mg Route: PO; 3 18:38 Follow up: Response: Pain is decreased [facility] 18:38 Drug: Magnesium Sulfate 1 grams Route: IVPB; Infused Over: 1 hrs; Site: left [facility] antecubital; 19:45 Follow up: Response: No adverse reaction; IV Status: Completed infusion; IV Intake: eh3 100ml Disposition Summary: 02/25/22 15:06 Hospitalization Ordered Hospitalization Status: Inpatient Admission epi Provider: Ghislaine West cha Condition: Fair epi Problem: new epi Symptoms: have improved epi Bed/Room Type: Standard epi Location: Intensive Care Unit(02/25/22 18:20) epi Room Assignment: 1-(02/25/22 20:41) cg Diagnosis - Unspecified combined systolic (congestive) and diastolic (congestive) heart failure epi - Chronic atrial fibrillation epi - Generalized edema epi Forms: - Medication Reconciliation Form epi - SBAR form epi Signatures: Dispatcher [employer] Keith Ocampo MD MD cha Garcia, Cindy, RN RN cg Kiley Juan RN RN ld1 Denita Cohn RN RN eh3 Chen Lin, STEVEN HARRIS sb4 Corrections: (The following items were deleted from the chart) 18:20 15:06 Telemetry/MedSurg (Inpatient) epi epi 18:20 15:06 epi epi 20:41 18:20 epi cg
[2022-02-25 15:09] LABS: Absolute Lymphocytes (CBC) 1.2 K/uL (0.7-4.9); Hematocrit 35.1 % (36.0-45.0); Lymphocytes % 23.4 % (15.3-44.8); MCV 90.2 fL (80-100); MPV 7.5 fL (7.6-11.3); RBC Red Blood Cell Count 3.89 M/uL (3.86-4.86)
[2022-02-25 15:23] LABS: Protime INR 2.4
[2022-02-25 15:32] LABS: Potassium 3.9 mmol/L (3.5-5.1); Troponin High Sensitivity 9.1 pg/mL (<58.9)
[2022-02-25] MEDS ORDERED: FUROSEMIDE 100 MG/10 ML VIAL IV ONE (15:33)
[2022-02-25] MEDS ORDERED: AMIODARONE HCL 150 MG/3 ML INJ IV ONE (15:34)
[2022-02-25] MEDS ORDERED: D5W 100 ML IV ONE (15:35)
[2022-02-25 15:38] LABS: Bilirubin Direct 0.5 mg/dL (0-0.2); Bilirubin Total 1.2 mg/dL (0.2-1.0); Magnesium 1.7 mg/dL (1.8-2.4); Protein, Total 7.3 g/dL (6.4-8.2)
[2022-02-25 15:48] LABS: SARS-CoV-2 Antigen Rapid Res Negative (Negative)
[2022-02-25] MEDS ORDERED: ACETAMINOPHEN 325 MG TABLET ONE (16:19)
[2022-02-25] MEDS ORDERED: MAGNESIUM SULFATE 1 gm IVPB 1 GM/100 ML BAG IV ONE (16:22)
[2022-02-25] MEDS ORDERED: HYDROCODONE/APAP 5/325 MG TAB PO PRN (16:47)
[2022-02-25] MEDS ORDERED: ALBUTEROL 2.5 MG/3 ML NEB SOL NEB PRN (17:41)
[2022-02-25] MEDS ORDERED: ONDANSETRON 4 MG/2 ML VIAL IV PRN (17:41)
--- NOTE | 2022-02-25 17:44 | P.HP ---
Certification for Inpatient Patient admitted to: Inpatient With expected LOS: >2 Midnights Patient will require the following post-hospital care: None Practitioner: I am a practitioner with admitting privileges, knowledge of patient current condition, hospital course, and medical plan of care. Services: Services provided to patient in accordance with Admission requirements found in Title 42 Section 412.3 of the Code of Federal Regulations Patient History Date of Service: 02/25/22 Reason for admission: SOB History of Present Illness: Patient is a 76-year-old female with a past medical history significant for A. fib, bile duct cancer, breast cancer, CHF, hypertension, pacemaker presence who presents with complaint of shortness of breath has been ongoing for the past 1 week. Patient reported associated signs and symptoms of cough, bilateral upper\lower extremity swelling and chest tightness. Patient denies any other signs or symptoms. Symptoms are aggravated by exertion and relieved by nothing. Patient decided to present to the hospital due to worsening symptoms. Allergies Penicillins Allergy (Verified 03/28/20 20:39) Rash metronidazole [From Flagyl] Adverse Reaction (Verified 03/28/20 20:39) Rash Home Medications: Dabigatran Etexilate Mesylate [Pradaxa] 150 mg PO BID 04/03/17 Losartan Potassium 100 mg PO DAILY 04/03/17 Potassium Chloride 20 meq PO BID 04/03/17 Torsemide [Demadex] 20 mg PO DAILY 04/03/17 Betameth Dip 0.05% [Diprosone 0.05% OINTMENT*] 1 aleta TOP BID 03/29/20 Metoprolol Succinate [Toprol Xl] 50 mg PO DAILY #30 tab 03/29/20 Mupirocin 1 aleta TOP DAILY 03/29/20 - Past Medical/Surgical History Diabetic: Yes -: CHF -: Chronic atrial fibrillation -: Hypertension -: Mastectomy -: Hysterectomy -: Tubal Ligation -: Tonsillectomy - Family History Mother -: Hypertension Father -: Hypertension Notes: Alzheimers Sister -: Cancer Notes: breast cancer. thyroid problems Brother -: Cancer Notes: Prostate Cancer - Social History Smoking Status: Never smoker Alcohol use: No CD- Drugs: No Caffeine use: No Place of Residence: Home Review of Systems General: Unremarkable Eyes: Unremarkable ENT: Unremarkable Respiratory: Cough, Shortness of Breath, SOB with Excertion, Other (Chest tightness ) Cardiovascular: Unremarkable Gastrointestinal: Unremarkable Genitourinary: Unremarkable Musculoskeletal: Unremarkable Integumentary: Unremarkable Neurological: Unremarkable Lymphatics: Unremarkable Physical Examination - Physical Exam General: Alert, Oriented x3, Cooperative, Acute distress HEENT: Atraumatic, Normocephalic, PERRLA Neck: Supple, 2+ carotid pulse no bruit, JVD not distended, Without JVD or thyroid abnormality Respiratory: Diminished, Expiratory wheezes Cardiovascular: Edema, Irregular heart rate/rhythm Capillary refill: <2 Seconds Gastrointestinal: Normal bowel sounds, Soft and benign Musculoskeletal: No clubbing, No contractures, No erythema Integumentary: Other (Lymphedema ) Neurological: Normal speech, Normal tone, Normal affect Lymphatics: No axilla or inguinal lymphadenopathy - Studies Laboratory Data (last 24 hrs) 02/25/22 14:43: PT 26.4 H, INR 2.40 02/25/22 14:43: Magnesium 1.7 L, Total Bilirubin 1.2 H, AST 18, ALT 18, Alkaline Phosphatase 116 02/25/22 14:43: WBC 5.00, Hgb 11.7 L, Hct 35.1 L, Plt Count 235 02/25/22 14:43: Sodium 125 L, Potassium 3.9, BUN 10, Creatinine 0.70, Glucose 159 H Assessment and Plan - Plan --Acute on chronic diastolic or systolic CHF exacerbation. Echocardiogram pending. Daily weight and strict I/O. Cardiology consulted. Continue diuresis with Lasix. Will await further recommendation from mine surveyor. --Acute respiratory failure with hypoxia. Secondary to CHF exacerbation. Patient on BiPAP therapy. --Pericardial effusion. Noted on CT imaging. Echocardiogram pending for further assessment. Continue diuresis with Lasix. Further management per mine surveyor. --Pleural effusion. Small bilateral pleural effusion noted on imaging. Continue diuresis with Lasix and continue supportive care. --Atrial fibrillation. Continue Pradaxa and amiodarone. --Bile duct cancer. Per patient report. Patient reports that she is on chemotherapy at [facility].. Continue supportive care. --History of breast cancer. Status post mastectomy. Status unknown. Continue supportive care. --Pacemaker presence. Telemetry to monitor for any significant arrhythmia. Continue supportive care. --Hypertension. Poorly controlled. Continue home medications and labetalol as needed. --Class II obesity. Likely secondary to sedentary lifestyle and excess calories intake. Patient counseled on weight reduction, diet and exercise therapy. --Lymphedema. Continue supportive care. --DVT prophylaxis with Pradaxa. Discharge Plan: Home Plan to discharge in: Greater than 2 days - Advance Directives Does patient have a Living Will: No Does patient have a Durable POA for Healthcare: No - Code Status/Comfort Care Code Status Assessed: Yes Code Status: Full Code Physician Review: Patient Assessed, Agree with Above Assessment and Plan Critical Care: No
[2022-02-25] MEDS ORDERED: METHYLPREDNISOLONE 40 MG INJ IV SCH (18:00)
--- NOTE | 2022-02-25 18:22 | RAD REPORT ---
EXAM DESCRIPTION: CT - Thorax Wo Con CLINICAL HISTORY: Chest pain SOb, R O PNA COMPARISON: Chest Single View dated 02/25/2022 FINDINGS: Mild interstitial pulmonary edema likely present. Mild atelectasis is present both lung ba ses. Small bilateral pleural effusions are present, larger on the right. No pneumothorax. Moderate ca rdiomegaly. Small amount of pericardial fluid. No axillary, mediastinal or hilar adenopathy. No concerning bony finding. No gross upper abdominal finding. All CT scans are performed using dose optimization technique as appropriate and may include automated exposure control or mA/KV adjustment according to patient size. IMPRESSION: Mild CHF is likely present. Small bilateral pleural effusions and pericardial effusion. Moderate cardiomegaly.
[2022-02-25] MEDS ORDERED: LABETALOL 20 MG/4ML SYRINGE IV PRN (19:05)
[2022-02-25 19:08] LABS: Magnesium 1.8 mg/dL (1.8-2.4)
[2022-02-25 19:15] LABS: Thyroid Stimulating Hormone 4.44 uIU/mL (0.360-3.740)
[2022-02-25] MEDS ORDERED: IPRATROPIUM BROM 0.5MG/2.5ML ONE (20:18)
[2022-02-25] MEDS: IPRATROPIUM BROM 0.5MG/2.5ML NEB SCH (20:20)
[2022-02-25] MEDS: BETAMETHASONE DIPROPIONATE TOP SCH (21:00)
[2022-02-25] MEDS ORDERED: HEPARIN 5000 UNIT/ML 1 ML VIAL SQ SCH (21:00)
[2022-02-25] MEDS ORDERED: DABIGATRAN 150 MG CAP PO SCH (21:00)
[2022-02-25] MEDS: FUROSEMIDE 40 MG/4 ML VIAL IV SCH (22:52)
[2022-02-25] MEDS: POTASSIUM CL SA 10 MEQ TAB PO SCH (23:00)
[2022-02-25] MEDS: ASPIRIN EC 81 MG TAB PO SCH (23:00)
[2022-02-25] MEDS: ACETAMINOPHEN 325 MG TABLET PO PRN (23:00)
[2022-02-25] MEDS: DABIGATRAN 75 MG CAP PO SCH ×2 (23:03→23:15)
[2022-02-26 01:09] LABS: Calcium Oxalate Crystals- Ur Few /HPF (None Seen); Specific Gravity 1.014 (1.005-1.030); Urine Bacteria <20 /HPF (<20); Urine Bilirubin NEGATIVE (Negative); Urine Blood 2+ (Negative); Urine Clarity Clear (Clear); Urine Color Yellow (Yellow); Urine Glucose NEGATIVE (Negative); Urine Mucus Slight /HPF (None Seen); Urine Protein TRACE (Negative); Urine RBC 21-50 /HPF (None Seen); Urine Urobilinogen Normal (Normal)
[2022-02-26] MEDS: IPRATROPIUM BROM 0.5MG/2.5ML NEB SCH ×4 (01:40→20:10)
[2022-02-26 04:41] LABS: Absolute Lymphocytes (CBC) 0.4 K/uL (0.7-4.9); Hematocrit 37.4 % (36.0-45.0); Lymphocytes % 9.7 % (15.3-44.8); MCV 90.1 fL (80-100); MPV 7.7 fL (7.6-11.3); RBC Red Blood Cell Count 4.15 M/uL (3.86-4.86)
[2022-02-26 05:00] LABS: Magnesium 2.1 mg/dL (1.8-2.4); Potassium 4.1 mmol/L (3.5-5.1)
[2022-02-26] MEDS: POTASSIUM CL SA 10 MEQ TAB PO SCH ×2 (08:29→20:06)
[2022-02-26] MEDS: FUROSEMIDE 40 MG/4 ML VIAL IV SCH ×2 (08:29→17:43)
[2022-02-26] MEDS: ASPIRIN EC 81 MG TAB PO SCH ×2 (08:29→09:00)
[2022-02-26] MEDS: LOSARTAN POTASSIUM 50 MG TABLET PO SCH (08:29)
[2022-02-26] MEDS: METHYLPREDNISOLONE 40 MG INJ IV SCH ×2 (08:30→17:43)
[2022-02-26] MEDS: MUPIROCIN 2% OINT 22GM TUBE TOP SCH (09:00)
[2022-02-26] MEDS: DABIGATRAN 75 MG CAP PO SCH (09:00)
[2022-02-26] MEDS: BETAMETHASONE DIPROPIONATE TOP SCH ×2 (09:00→20:06)
--- NOTE | 2022-02-26 09:08 | P.PN ---
Subjective Date of Service: 02/26/22 Subjective: No new changes, No C/O voiced, Improving Review of Systems 10-point ROS is otherwise unremarkable Physical Examination - Vital Signs Temperature: 97.6 F Blood Pressure: 123/53 Pulse: 82 Respirations: 20 Pulse Ox (%): 100 - Physical Exam General: Alert, In no apparent distress, Oriented x3 HEENT: Atraumatic, PERRLA, EOMI Neck: Supple, JVD not distended Respiratory: Clear to auscultation bilaterally, Normal air movement Cardiovascular: No murmurs, Irregular heart rate/rhythm Gastrointestinal: Normal bowel sounds, Soft and benign, Non-distended, No tenderness, No rebound, No guarding Musculoskeletal: No tenderness Integumentary: No rashes Neurological: Other (no focal deficits) - Studies Medications List Reviewed: Yes Assessment & Plan - Problems (Diagnosis) (1) Atrial fibrillation Onset Date: 04/05/17 Current Visit: No Status: Chronic Qualifiers: Atrial fibrillation type: chronic (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 Amiodarone Drip 2. Diuretics 3. Conservative Management 4. Monitor labs 5. Control 6. GI DVT prophylaxis - Advance Directives Does patient have a Living Will: No Does patient have a Durable POA for Healthcare: No - Code Status/Comfort Care Code Status: Full Code Physician Review: Patient Assessed, Agree with Above Assessment and Plan
[2022-02-26] MEDS: METOPROLOL XL 50 MG TAB PO SCH (09:29)
[2022-02-26] MEDS: ACETAMINOPHEN 325 MG TABLET PO PRN ×2 (09:29→20:17)
[2022-02-26] MEDS ORDERED: ALBUTEROL 2.5 MG/3 ML NEB SOL NEB PRN (14:00)
[2022-02-26] MEDS: AMIODARONE HCL 900 MG in Dextrose 5%-Water 482 ML IV SCH (16:12)
--- NOTE | 2022-02-26 16:17 | EKG ---
Test Date: 2022-02-25 Test Time: 14:24:42 Fermentation Engineer: BRYCE MEASUREMENT RESULTS: Intervals: Rate: 121 [place]: QRSD: 154 QT: 368 QTc: 522 [place]: P: [place]: QRS: 108 T: -47 INTERPRETIVE STATEMENTS: Atrial fibrillation with rapid ventricular response Right bundle branch block Septal infarct, age undetermined Possible Inferior infarct, age undetermined Abnormal ECG Compared to ECG 12/10/2021 14:07:48 Right bundle-branch block now present Left ventricular hypertrophy no longer present ST (T wave) deviation no longer present Myocardial infarct finding still present Electronically Signed On 02-26-22 16:15:14 CDT by Reji Henriquez
[2022-02-26] MEDS ORDERED: SODIUM CHLORIDE 1 GM TAB PO SCH (17:00)
[2022-02-26] MEDS: APIXABAN 5 MG TABLET PO SCH ×2 (17:43→20:06)
[2022-02-26 19:34] LABS: Potassium 4.1 mmol/L (3.5-5.1)
[2022-02-26] MEDS ORDERED: HOME MED 1 EA UNK (Apixaban [Eliquis] 5 MG Tablet) PO SCH (21:00)
[2022-02-26] MEDS ORDERED: GLUCAGON 1 MG/VIAL IM PRN (21:32)
[2022-02-26] MEDS ORDERED: D50W 25 GM/50 ML SYRINGE IV PRN (21:32)
--- NOTE | 2022-02-26 21:42 | CON ---
Date of Consultation: 02/26/2022 Reason For Consultation: Atrial fibrillation, pericardial effusion, and shortness of breath. History Of Present Illness: This is a 76-year-old female with past medical history of atrial fibrill ation. She has a bile duct cancer, breast cancer, congestive heart failure, and hypertension and pre sented to the emergency room with shortness of breath that has been worsening over the past week, noreen ng with orthopnea and lower extremity edema and chest tightness. Denies having any nausea, vomiting, or diaphoresis and has significant orthopnea and palpitations. No other complaints. Past Medical History: As outlined above in the HPI. Medications: Refer to reconciliation sheet for detailed list. Allergies: PENICILLIN, AMLODIPINE, AND METRONIDAZOLE. Family History: No premature coronary artery disease or cancer. Past Surgical History: Hysterectomy and mastectomy. Social History: Does not smoke or drink. Does not use any drugs. Review of Systems: All systems reviewed and are negative except for what is mentioned in HPI. Physical Examination: Vital Signs: Reviewed. Temperature is 97.6, pulse is 83, breathing at 18-20, blood pressure is 132/ 72, saturating 99% with 2 L nasal cannula. General: A pleasant elderly female, no apparent distress. Head and Neck: Pupils are equal and reactive to light. Intact eye movements. No JVD. No cervical lymphadenopathy. Neck: Supple. Thyroid is not enlarged. Lungs: Decreased breathing sounds with crackles in both bases. No accessory muscle use or muscle re traction. Heart: Irregularly irregular. Tachycardiac. Abdomen: Soft, nontender. Bowel sounds positive. No organomegaly. No masses or hernia. No rigidi ty or rebound. Extremities: No clubbing or cyanosis. Positive edema bilaterally 2+. Neurologic: Alert, awake, oriented x3. No acute focal deficits appreciated. Lymph Nodes: No cervical or axillary lymphadenopathy. Investigations: Sodium is 121, potassium is 4.1, chloride is 86, BUN 11, creatinine 0.75. NT-proBNP is 944. Troponin is 9.1. Hemoglobin is 12.4. EKG: Atrial fibrillation with rapid ventricular res ponse. INR is 2.40. CT scan of the chest showed mild CHF, bilateral pleural effusion and pericardia l effusions present. Assessment And Recommendations: 1.Atrial fibrillation with rapid ventricular response. Recommended amiodarone drip for 24 hours and the patient is on Pradaxa for stroke prevention and INR is elevated in response to that, which is an inappropriate response for newer anticoagulants and it makes her high risk for bleeding and as an ou tpatient would recommend appendage closure to be able to come off Pradaxa. In the interim, continue amiodarone for 24 hours and after that switch her to oral 200 mg twice a day and I agree with metopro lol. Heart rate is controlled at the present time. 2.Pericardial effusion. I did an echo on her. There is no significant pericardial effusion, but sh e has normal ejection fraction and significant diastolic dysfunction with right ventricular systolic pressure of more than 60. The patient is fluid overloaded. She will need diuresis; however, her sod ium is slightly low. I will repeat basic metabolic panel now and if the sodium continues to go down, then we will add tolvaptan and monitor the electrolytes and sodium very closely. 3.Trxyd-co-mvarbup diastolic heart failure with significant fluid retention, management as outlined above. 4.Chest pain. First troponin is negative. We will order another one now and assess the need for fu rther ischemic workup accordingly. SR/MODL Voice ID: [id number] Report ID: [id number]
[2022-02-26] MEDS ORDERED: D10W 125 ML IV PRN (21:44)
[2022-02-26] MEDS: INSULIN -REGULAR HUMAN 50 UNIT/0.5 ML ML SQ SCH (21:48)
[2022-02-27] MEDS: METHYLPREDNISOLONE 40 MG INJ IV SCH ×3 (00:38→18:31)
[2022-02-27] MEDS: IPRATROPIUM BROM 0.5MG/2.5ML NEB SCH ×4 (01:28→19:30)
[2022-02-27] MEDS: ACETAMINOPHEN 325 MG TABLET PO PRN (02:17)
[2022-02-27 05:40] LABS: Magnesium 2.1 mg/dL (1.8-2.4); Phosphorus 2.8 mg/dL (2.5-4.9); Potassium 4.5 mmol/L (3.5-5.1)
[2022-02-27 06:05] VITALS: BMI 38.3
--- NOTE | 2022-02-27 07:23 | ECHO ---
HEIGHT: 5 ft 5 in WEIGHT: 230 lb 6.4 oz DATE OF STUDY: 02/26/[address]: Jose Ohara 2-DIMENSIONAL: YES M.MODE: YES DOPPLER: YES COLOR FLOW: YES TDS: NO PORTABLE: YES DEFINITY: NO BUBBLE STUDY: NO DIAGNOSIS: CONGESTIVE HEART FAILURE, PERICARDIAL EFFUSION CARDIAC HISTORY: CATHERIZATION: NO SURGERY: NO PROSTHETIC VALVE: NO PACEMAKER: NO MEASUREMENTS (cm) DIASTOLIC (NORMALS) SYSTOLIC (NORMALS) IVSd 1.0 (0.6-1.2) LA Diam 4.3 (1.9-4.0) LVEF 54% LVIDd 4.6 (3.5-5.7) LVIDs 3.3 (2.0-3.5) %FS 28% LVPWd 1.2 (0.6-1.2) Ao Diam 2.3 (2.0-3.7) 2 DIMENSIONAL ASSESSMENT: RIGHT ATRIUM: ENLARGED LEFT ATRIUM: ENLARGED RIGHT VENTRICLE: NORMAL LEFT VENTRICLE: NORMAL TRICUSPID VALVE: MITRAL VALVE: PULMONIC VALVE: AORTIC VALVE: NORMAL PERICARDIAL EFFUSION: TRACE AORTIC ROOT: NORMAL LEFT VENTRICULAR WALL MOTION: NORMAL DOPPLER/COLOR FLOW: SEE BELOW. COMMENTS: NORMAL LEFT VENTRICULAR EJECTION FRACTION 55-60%. NORMAL WALL MOTION. BI-ATRIAL ENLARGEMENT. SEVERE DIASTOLIC DYSFUNCTION. MODERATE TO SEVERE TRICUSPID REGURGITATION. MODERATE MITRAL REGURGITATION. SEVERE PULMONARY HYPERTENSION. RIGHT VENTRICULAR SYSTOLIC PRESSURE OF > 60 mmHg. TECHNOLOGIST: Solange DELVALLE
[2022-02-27] MEDS: INSULIN -REGULAR HUMAN 50 UNIT/0.5 ML ML SQ SCH ×4 (07:30→21:34)
[2022-02-27] MEDS: BETAMETHASONE DIPROPIONATE TOP SCH ×2 (09:00→21:00)
[2022-02-27] MEDS: POTASSIUM CL SA 10 MEQ TAB PO SCH ×2 (09:00→21:15)
[2022-02-27] MEDS: ASPIRIN EC 81 MG TAB PO SCH (09:00)
[2022-02-27] MEDS: MUPIROCIN 2% OINT 22GM TUBE TOP SCH (09:00)
[2022-02-27] MEDS: FUROSEMIDE 40 MG/4 ML VIAL IV SCH ×2 (09:17→18:31)
[2022-02-27] MEDS: APIXABAN 5 MG TABLET PO SCH ×2 (09:17→21:15)
[2022-02-27] MEDS: METOPROLOL XL 50 MG TAB PO SCH (09:17)
[2022-02-27] MEDS: LOSARTAN POTASSIUM 50 MG TABLET PO SCH (09:17)
[2022-02-27] MEDS ORDERED: FLUMAZENIL 0.1 MG/ML (5 mL VIAL) IV ONE (11:14)
[2022-02-27] MEDS ORDERED: METOPROLOL TARTRATE 5 MG/5 ML INJ IV ONE (11:14)
[2022-02-27] MEDS ORDERED: FENTANYL CITR 100 MCG/2 ML ONE (11:14)
[2022-02-27] MEDS ORDERED: HYDRALAZINE HCL 20 MG/ML VIAL ONE (11:14)
[2022-02-27] MEDS ORDERED: MIDAZOLAM HCL 0 ML ONE (11:14)
[2022-02-27] MEDS ORDERED: PHENOL 1.4% ORAL SPRAY 180ML ONE (11:15)
[2022-02-27] MEDS ORDERED: ATROPINE SULF 1 MG/10 ML SYR IV ONE (11:15)
[2022-02-27] MEDS ORDERED: HEPA 1000U/500MLS 1,000 UNIT/500 ML BAG IV ONE (17:33)
[2022-02-27] MEDS: GLIMEPIRIDE 2 MG TABLET PO ONE (18:30)
--- NOTE | 2022-02-27 19:13 | P.PN ---
Date of Service: 02/27/22 Subjective patient is clinically doing well. Rate is better controlled. Continue with amiodarone drip. Continue with Toprol 50 mg daily. If patient is not cardioverted medically then will do DANIEL with cardioversion on Wednesday. Review of Systems 10-point ROS is otherwise unremarkable Physical Examination - Vital Signs Reviewed - Physical Exam General: Alert, In no apparent distress, Oriented x3 Respiratory: Clear to auscultation bilaterally, Normal air movement Cardiovascular: No murmurs, Irregular heart rate/rhythm Gastrointestinal: Normal bowel sounds, Soft and benign, Non-distended, No tenderness, No rebound, No guarding Neurological: Other (no focal deficits) Assessment & Plan - Problems (Diagnosis) (1) Atrial fibrillation with rapid ventricular response Onset Date: 04/05/17 Current Visit: Yes status: Acute Qualifiers: Atrial fibrillation type: Rapid ventricular response (2) Carcinoma of biliary duct Current Visit: Yes Status: Chronic (3) Pulmonary hypertension Current Visit: No Status: Acute (4) Congestive heart failure; diastolic Onset Date: 04/05/17 Current Visit: No Status: Acute on chronic Qualifiers: Qualified Code(s): I50.9 - Heart failure, unspecified - Plan continue with plan of care as mentioned below: 1. Amiodarone Drip 2. Diuretics 3. Conservative Management 4. Monitor labs 5. Control blood pressure 6. GI DVT prophylaxis
--- NOTE | 2022-02-27 20:35 | PN ---
Date of Progress Note: 02/27/2022 Subjective: Seen by bedside. Doing well. Still in atrial fibrillation on amiodarone, and still has shortness of breath on exertion with some orthopnea. Review of Systems: Positive for shortness of breath. No chest pain. Has lower extremity edema. No nausea, vomiting, d iarrhea. No abdominal pain. No dysuria, polyuria, or urgency. All other systems reviewed and they are negative. Physical Examination: Vital Signs: Reviewed. Head and Neck: Pupils are equal, reactive to light. Intact eye movements. No JVD. Neck: Supple. Thyroid is not enlarged. Lungs: Clear to auscultation bilaterally. No rhonchi, wheezing, or crackles. Heart: Irregularly irregular. No extra sounds. Abdomen: Soft, nontender. Bowel sounds positive. No organomegaly. No masses or hernia. No rigidi ty or rebound. Extremities: No clubbing or cyanosis. Intact pulses. Skin: No rash. Neurologic: Alert, awake, and oriented x3. No acute focal deficits appreciated. Lymph Nodes: No cervical or axillary lymphadenopathy. Investigations: BUN is 22, creatinine is 1.06, and her hemoglobin is 12.4. Assessment And Recommendation: 1.Atrial fibrillation with rapid ventricular response, on amiodarone. Please add metoprolol XL 50 m g daily to monitor on telemetry. Keep the amiodarone at 0.5 mg/minute for now. Monitor liver functi on tests daily while on amiodarone and if she continues to be in atrial fibrillation throughout the [facility], we will plan for a DANIEL-guided cardioversion on Wednesday and continue Eliquis 5 mg twice a day. 2.Acute congestive heart failure exacerbation with diastolic dysfunction. Continue Lasix and carefu lly monitor BUN, creatinine, and electrolytes. SR/MODL Voice ID: [id number] Report ID: [id number]
[2022-02-27] MEDS: PANTOPRAZOLE 40MG TABLET PO SCH (21:16)
[2022-02-27] MEDS: AMIODARONE HCL 900 MG in Dextrose 5%-Water 482 ML IV SCH (22:15)
[2022-02-28] MEDS: IPRATROPIUM BROM 0.5MG/2.5ML NEB SCH ×4 (01:20→19:40)
[2022-02-28] MEDS: METHYLPREDNISOLONE 40 MG INJ IV SCH ×2 (01:52→07:57)
[2022-02-28] MEDS: ACETAMINOPHEN 325 MG TABLET PO PRN (01:53)
[2022-02-28 06:43] LABS: Absolute Lymphocytes (CBC) 0.4 K/uL (0.7-4.9); Hematocrit 35.7 % (36.0-45.0); Lymphocytes % 4.2 % (15.3-44.8); MCV 90.3 fL (80-100); MPV 7.6 fL (7.6-11.3); RBC Red Blood Cell Count 3.96 M/uL (3.86-4.86)
[2022-02-28 07:15] LABS: Albumin 3.2 g/dL (3.4-5.0); Magnesium 2.2 mg/dL (1.8-2.4); Phosphorus 2.4 mg/dL (2.5-4.9); Potassium 4.1 mmol/L (3.5-5.1); Protein, Total 7.3 g/dL (6.4-8.2); Thyroid Stimulating Hormone 1.67 uIU/mL (0.360-3.740)
[2022-02-28] MEDS: INSULIN -REGULAR HUMAN 50 UNIT/0.5 ML ML SQ SCH ×4 (07:55→20:57)
[2022-02-28] MEDS: METOPROLOL XL 50 MG TAB PO SCH (07:56)
[2022-02-28] MEDS: POTASSIUM CL SA 10 MEQ TAB PO SCH ×4 (07:56→20:29)
[2022-02-28] MEDS: APIXABAN 5 MG TABLET PO SCH ×2 (07:56→20:29)
[2022-02-28] MEDS: GLIMEPIRIDE 2 MG TABLET PO SCH ×2 (07:56→16:15)
[2022-02-28] MEDS: PANTOPRAZOLE 40MG TABLET PO SCH ×2 (07:56→16:15)
[2022-02-28] MEDS: ASPIRIN EC 81 MG TAB PO SCH (07:57)
[2022-02-28] MEDS: METFORMIN ER 500 MG TAB PO SCH ×2 (07:57→16:15)
[2022-02-28] MEDS: FUROSEMIDE 40 MG/4 ML VIAL IV SCH ×2 (07:57→16:15)
[2022-02-28] MEDS: BETAMETHASONE DIPROPIONATE TOP SCH ×2 (09:00→20:36)
[2022-02-28] MEDS: MUPIROCIN 2% OINT 22GM TUBE TOP SCH (09:00)
[2022-02-28] MEDS: LOSARTAN POTASSIUM 50 MG TABLET PO SCH (10:09)
--- NOTE | 2022-02-28 11:41 | P.PN ---
Date of Service: 02/28/22 Subjective Patient complaining of a cough. Otherwise no new complaints. Heart rate still elevated in the low 100s. Check chest x-ray. Also with some complaints of dysphagia. We will get a swallow study eval on Wednesday as well. Review of Systems 10-point ROS is otherwise unremarkable Physical Examination - Vital Signs Reviewed - Physical Exam General: Alert, In no apparent distress, Oriented x3; somewhat forgetful at times Respiratory: Diminished breath sounds but otherwise clear Cardiovascular: No murmurs, Irregular heart rate/rhythm Gastrointestinal: Normal bowel sounds, Soft and benign, Non-distended, No tenderness, No rebound, No guarding Neurological: Generalized weakness Assessment & Plan - Problems (Diagnosis) (1) Atrial fibrillation with rapid ventricular response Onset Date: 04/05/17 Current Visit: Yes status: Acute Qualifiers: Atrial fibrillation type: Rapid ventricular response (2) Carcinoma of biliary duct Current Visit: Yes Status: Chronic (3) Pulmonary hypertension Current Visit: No Status: Acute (4) Congestive heart failure; diastolic Onset Date: 04/05/17 Current Visit: No Status: Acute on chronic Qualifiers: Qualified Code(s): I50.9 - Heart failure, unspecified (5) Diabetes mellitus type 2 Current Visit: Yes Status: Chronic - Plan continue with plan of care as mentioned below: 1. Continue with amiodarone Drip 2. Continue with diuretics 3. DANIEL with cardioversion on Wednesday 4. Continue to monitor labs including LFTs 5. Control blood pressure 6. Encourage patient to get out of bed and ambulate 7. Strict blood sugar control; wean off steroids 8. Check hemoglobin A1c 9. GI DVT prophylaxis
[2022-02-28] MEDS: METOPROLOL TAR 50 MG TAB PO SCH ×2 (13:54→20:29)
[2022-02-28] MEDS: GLIMEPIRIDE 2 MG TABLET PO ONE (16:23)
--- NOTE | 2022-02-28 16:35 | PN ---
Date of Progress Note: 02/28/2022 Subjective: Seen by bedside. Continued to be in atrial fibrillation, rate is running fast despite b eing on amiodarone. Review of Systems: No chest pain. Her breathing is better. No nausea, vomiting, diarrhea. No abdominal pain. No dysu roberto, polyuria, or urinary urgency. No skin rash. All other systems reviewed are negative. Physical Examination: Vital Signs: Reviewed. Head and Neck: Pupils are equal, reactive to light. Intact eye movements. No JVD. No cervical lym phadenopathy. Neck is supple. Thyroid is not enlarged. Lungs: Decreased breathing sounds bilaterally. Extremities: No clubbing, cyanosis. Intact pulses. Skin: No rashes. Neurologic: Alert, awake. No acute focal deficits appreciated. Lymph Nodes: No cervical or axillary lymphadenopathy. Investigations: Sodium 126, potassium is 4.1, chloride 92, BUN 29, creatinine 1.09. Assessment And Recommendation: 1.Atrial fibrillation with rapid ventricular response. Continue the amiodarone at 0.5 mg/minute and adjust the metoprolol if need be to go out to 100 mg 3 times a day. At this point, it was increased to 50 mg 3 times a day and observed that over the next 24 hours. If the heart rate continues to be fast to go up to 100 mg 3 times a day and continue amiodarone and I will plan for DANIEL guided cardiove rsion on Wednesday. Continue anticoagulation with apixaban. 2.Acute on chronic heart failure exacerbation. She is responding well to diuretics. Continue Lasix . Carefully monitor BUN, creatinine, electrolytes. 3.Hyponatremia due to fluid retention and responding well to diuresis. Continue Lasix and continue to monitor electrolytes daily. SR/MODL Voice ID: [id number] Report ID: [id number]
[2022-02-28] MEDS: predniSONE 20 MG TAB PO SCH (20:29)
[2022-02-28] MEDS: LORATADINE 10 MG TAB PO PRN (22:32)
[2022-03-01] MEDS: IPRATROPIUM BROM 0.5MG/2.5ML NEB SCH ×4 (01:15→19:20)
[2022-03-01 06:22] LABS: Absolute Lymphocytes (CBC) 0.6 K/uL (0.7-4.9); Hematocrit 33.2 % (36.0-45.0); Lymphocytes % 7.2 % (15.3-44.8); MCV 89.8 fL (80-100); MPV 7.4 fL (7.6-11.3)
[2022-03-01 06:41] LABS: Albumin 2.8 g/dL (3.4-5.0); Bilirubin Total 0.8 mg/dL (0.2-1.0); Magnesium 2.1 mg/dL (1.8-2.4); Potassium 4.4 mmol/L (3.5-5.1); Protein, Total 6.6 g/dL (6.4-8.2)
--- NOTE | 2022-03-01 07:45 | RAD REPORT ---
EXAM DESCRIPTION: RAD - Chest Single View - 03/01/2022 6:32 am CLINICAL HISTORY: persistent cough COMPARISON: Chest Single View dated 02/25/2022; Chest Single View dated 12/10/2021; Chest Pa And Lat ( 2 Views) dated 08/06/2021; Chest Single View dated 03/28/2020Chest Single View dated 02/25/2022; Chest Single View dated 12/10/2021; Chest Pa And Lat (2 Views) dated 08/06/2021; Chest Single View dated 03/10; Thorax Wo Con dated 02/25/2022 FINDINGS: Lines: None. Lungs: The coarsening of the interstitial markings bilaterally. Pleural: Bilateral pleural effusions, small to moderate right and small on the left. Cardiac: Cardiomegaly. Mediastinum: Within normal limits. Bones: No acute fractures. Other: None IMPRESSION: Moderate right and small left pleural effusion likely secondary to pulmonary edema. Pneu monia difficult to exclude radiographically.
[2022-03-01] MEDS: LOSARTAN POTASSIUM 50 MG TABLET PO SCH (07:55)
[2022-03-01] MEDS: INSULIN -REGULAR HUMAN 50 UNIT/0.5 ML ML SQ SCH ×4 (07:55→21:00)
[2022-03-01] MEDS: ASPIRIN EC 81 MG TAB PO SCH (07:55)
[2022-03-01] MEDS: predniSONE 20 MG TAB PO SCH ×2 (07:55→20:13)
[2022-03-01] MEDS: GLIMEPIRIDE 2 MG TABLET PO SCH ×2 (07:56→16:51)
[2022-03-01] MEDS: METOPROLOL TAR 50 MG TAB PO SCH ×3 (07:56→20:13)
[2022-03-01] MEDS: FUROSEMIDE 40 MG/4 ML VIAL IV SCH (07:56)
[2022-03-01] MEDS: APIXABAN 5 MG TABLET PO SCH ×2 (07:56→20:13)
[2022-03-01] MEDS: POTASSIUM CL SA 10 MEQ TAB PO SCH ×2 (07:56→20:13)
[2022-03-01] MEDS: PANTOPRAZOLE 40MG TABLET PO SCH ×2 (07:56→16:50)
[2022-03-01] MEDS: METFORMIN ER 500 MG TAB PO SCH ×2 (07:57→16:50)
[2022-03-01] MEDS: AMIODARONE HCL 900 MG in Dextrose 5%-Water 482 ML IV SCH (08:33)
[2022-03-01] MEDS: MUPIROCIN 2% OINT 22GM TUBE TOP SCH (09:00)
[2022-03-01] MEDS: BETAMETHASONE DIPROPIONATE TOP SCH ×2 (09:00→20:13)
[2022-03-01] MEDS ORDERED: ALBUMIN HUMAN 25% 12.5 GM, FUROSEMIDE 100 MG in NA CHLORIDE 0.9% 40 ML IV SCH (14:00)
[2022-03-01 18:23] LABS: Potassium 4.6 mmol/L (3.5-5.1)
--- NOTE | 2022-03-01 19:29 | P.PN ---
Date of Service: 03/01/22 Subjective Patient is a 76-year-old female who came to the hospital with atrial fibrillation with rapid ventricular response. Patient was started on amiodarone drip. Patient was not able to cardiovert chemically. Plan was to do a DANIEL with cardioversion on Wednesday. Unfortunately staff was not available after an emergent cardiac cath was performed on another patient. Patient remains on an amiodarone drip. Continue with anticoagulation. At this time, patient is doing well although she has had some upper respiratory symptoms. Chest x-ray shows some pleural effusions. Patient has been on diuretics as well. Plan to do a DANIEL in a.m. with electrical cardioversion. If patient remains stable after wards anticipate discharge over the next 24 to 48 hours. Review of Systems 10-point ROS is otherwise unremarkable Physical Examination - Vital Signs Reviewed - Physical Exam General: Alert, In no apparent distress, Oriented x3; somewhat forgetful at times Respiratory: Diminished breath sounds with basilar crackles Cardiovascular: No murmurs, Irregular heart rate/rhythm Gastrointestinal: Normal bowel sounds, Soft and benign, Non-distended, No tenderness, No rebound, No guarding Neurological: Generalized weakness Assessment & Plan - Problems (Diagnosis) (1) Atrial fibrillation with rapid ventricular response Onset Date: 04/05/17 Current Visit: Yes status: Acute Qualifiers: Atrial fibrillation type: Rapid ventricular response (2) Carcinoma of biliary duct Current Visit: Yes Status: Chronic (3) Pulmonary hypertension Current Visit: No Status: Acute (4) Congestive heart failure; diastolic Onset Date: 04/05/17 Current Visit: No Status: Acute on chronic Qualifiers: Qualified Code(s): I50.9 - Heart failure, unspecified (5) Diabetes mellitus type 2 Current Visit: Yes Status: Chronic - Plan continue with plan of care as mentioned below: 1. Continue with amiodarone drip along with anticoagulation 2. Continue with diuretics 3. DANIEL with cardioversion in AM 4. Continue to monitor labs including LFTs 5. Control blood pressure 6. Encourage patient to get out of bed and ambulate 7. Strict blood sugar control; wean off steroids 8. Check hemoglobin A1c 9. GI/DVT prophylaxis
--- NOTE | 2022-03-01 23:02 | PN ---
Date of Progress Note: 03/01/2022 Subjective: Seen by bedside, continues to be in atrial fibrillation, breathing easier. No distress. Review of Systems: No chest pain, shortness of breath, orthopnea or cough. No nausea, vomiting, or diarrhea. All other systems were reviewed are they are negative. Physical Examination: Vital Signs: Reviewed. Head And Neck: Pupils are equal and reactive to light. Intact eye movements. No JVD. No cervical lymphadenopathy. NECK: Supple. Thyroid is not enlarged. Lungs: Clear to auscultation bilaterally. No rhonchi, wheezing, or crackles. No accessory muscle u se. Heart: Irregularly irregular. No extra sounds. Abdomen: Soft, nontender. Bowel sounds positive. No organomegaly. No masses or hernia. No rigidity or rebound. Extremities: No edema, clubbing, or cyanosis. Intact pulses. Positive edema with improvement. Neurologic: Alert, awake, oriented x3. No acute deficit. Investigations: BUN is 36, creatinine is 1.04, and sodium is 130. Hemoglobin 11.2. Assessment And Plan: 1.Jrcqq-rt-iciocdx congestive heart failure with exacerbation. Significant improvement with diuresi s. Continue one more day of IV diuretics, and carefully monitor BUN, creatinine, and electrolytes. Please check a BMP this afternoon and if the creatinine rises, then to back off on the IV Lasix and s witch to oral. 2.Severe hyponatremia due to severe congestive heart failure and fluid retention, improved with diur etics, approaching normal limits. Continue IV diuretics for one more day, if creatinine continues to be normal. 3.Atrial fibrillation, rate is controlled now. Continue metoprolol and amiodarone drip. We will plan for transesophageal echocardiogram-guided cardioversion tomorrow a nd continue Eliquis. SR/MODL Voice ID: [id number] Report ID: [id number]
[2022-03-02] MEDS: ACETAMINOPHEN 325 MG TABLET PO PRN (00:32)
[2022-03-02] MEDS: IPRATROPIUM BROM 0.5MG/2.5ML NEB SCH ×4 (02:10→19:40)
[2022-03-02 06:10] LABS: Absolute Lymphocytes (CBC) 0.6 K/uL (0.7-4.9); Hematocrit 34.4 % (36.0-45.0); Lymphocytes % 7.3 % (15.3-44.8); MCV 90.6 fL (80-100); MPV 7.5 fL (7.6-11.3)
[2022-03-02 06:29] LABS: Albumin 2.9 g/dL (3.4-5.0); Bilirubin Total 0.8 mg/dL (0.2-1.0); Magnesium 2.2 mg/dL (1.8-2.4); Potassium 3.9 mmol/L (3.5-5.1); Protein, Total 6.7 g/dL (6.4-8.2)
[2022-03-02] MEDS: PANTOPRAZOLE 40MG TABLET PO SCH ×2 (07:30→16:15)
[2022-03-02] MEDS: INSULIN -REGULAR HUMAN 50 UNIT/0.5 ML ML SQ SCH ×4 (07:30→20:56)
[2022-03-02] MEDS: GLIMEPIRIDE 2 MG TABLET PO SCH (07:35)
[2022-03-02] MEDS: METFORMIN ER 500 MG TAB PO SCH (07:35)
[2022-03-02] MEDS: POTASSIUM CL SA 10 MEQ TAB PO SCH ×2 (07:35→20:55)
[2022-03-02] MEDS: ASPIRIN EC 81 MG TAB PO SCH (07:37)
[2022-03-02] MEDS: predniSONE 20 MG TAB PO SCH (07:37)
[2022-03-02] MEDS: METOPROLOL TAR 50 MG TAB PO SCH ×3 (07:37→20:55)
[2022-03-02] MEDS: APIXABAN 5 MG TABLET PO SCH ×2 (07:38→20:54)
[2022-03-02] MEDS: LOSARTAN POTASSIUM 50 MG TABLET PO SCH (09:00)
[2022-03-02] MEDS: BETAMETHASONE DIPROPIONATE TOP SCH ×2 (09:00→21:00)
[2022-03-02] MEDS: MUPIROCIN 2% OINT 22GM TUBE TOP SCH (09:00)
[2022-03-02] MEDS ORDERED: FUROSEMIDE 40 MG/4 ML VIAL IV SCH (09:00)
--- NOTE | 2022-03-02 09:44 | P.PN ---
Subjective Date of Service: 03/02/22 Chief Complaint: SOB Subjective: Improving No acute events overnight. She denies any particular concerns this morning. Her heart rates have remained in the 90s-100s overnight. This morning, she is in atrial fibrillation with a heart rate in the mid-90s. She has been NPO past midnight. She denies any chest pain, shortness of breath, or palpitations. Review of Systems 10-point ROS is otherwise unremarkable Physical Examination - Vital Signs Temperature: 96.9 F Blood Pressure: 102/48 Pulse: 96 Respirations: 17 Pulse Ox (%): 100 - Physical Exam General: Alert, In no apparent distress, Oriented x3 HEENT: Atraumatic, PERRLA, Mucous membr. moist/pink, EOMI, Sclerae nonicteric Neck: Supple, JVD not distended Respiratory: Clear to auscultation bilaterally, Normal air movement Cardiovascular: No edema, No gallops, No rubs, No murmurs, Irregular heart rate/rhythm Capillary refill: <2 Seconds Gastrointestinal: Normal bowel sounds, Soft and benign, Non-distended, No tenderness, No rebound, No guarding Musculoskeletal: No clubbing Integumentary: No rashes Neurological: Normal speech, Cranial nerves 3-12 intact, Normal affect - Studies Medications List Reviewed: Yes Assessment And Plan - Plan # Paroxysmal Atrial Fibrillation with Rapid Ventricular Response Her [id number] = 6 (CHF=1, HTN=1, Age>75=2, DM2=1, Sex=1), which warrants anticoagulation. - Cardiology consulted - recommendations appreciated - Plan for [facility] today @ 14:00 - Troponin = 9.1 -> 5.3 - Transthoracic echocardiogram = "normal left ventricular ejection fraction 55- 60%. normal wall motion. bi-atrial enlargement. severe diastolic dysfunction. moderate to severe tricuspid regurgitation. moderate mitral regurgitation. severe pulmonary hypertension. right ventricular systolic pressure of > 60 mmHg." - For rate control: - Continue metoprolol, amiodarone - For anticoagulation: - Continue apixaban # Acute on Chronic Decompensated Diastolic Congestive Heart Failure with Preserved Ejection Fraction # Severe Pulmonary Hypertension # Moderate-Severe Tricuspid Regurgitation # Moderate Mitral Regurgitation # Hypertension - Consult Cardiology - recommendations appreciated - Transthoracic echocardiogram = "normal left ventricular ejection fraction 55- 60%. normal wall motion. bi-atrial enlargement. severe diastolic dysfunction. moderate to severe tricuspid regurgitation. moderate mitral regurgitation. severe pulmonary hypertension. right ventricular systolic pressure of > 60 mmHg." - Diuresis with IV furosemide for today - Continue metoprolol, losartan - Daily weights - Strict I/O - Cardiac diet, 1.5 L fluid restriction, 2 g Na restriction # Steroid-Induced Hyperglycemia in Type II Diabetes Mellitus, now with Hypoglycemia - Unclear why on steroids, she reports that she does not take steroids at home - will discontinue - Blood glucose down to 50 today - Hgb A1c = 6.3 % - Discontinue metformin + glimepiride - Continue correction scale insulin # Gastroesophageal Reflux Disease - Continue pantoprazole # History of Bile Duct Cancer # History of Breast Cancer # Microscopic Hematuria - Follow-up with PCP for further evaluation Issac Salazar M.D. Discharge Plan: Home Plan to discharge in: 24 Hours
[2022-03-02] MEDS ORDERED: METOPROLOL TARTRATE 5 MG/5 ML INJ IV ONE (11:00)
[2022-03-02] MEDS ORDERED: MIDAZOLAM HCL 5 ML ONE (11:00)
[2022-03-02] MEDS ORDERED: HYDRALAZINE HCL 20 MG/ML VIAL ONE (11:00)
[2022-03-02] MEDS ORDERED: ATROPINE SULF 1 MG/10 ML SYR IV ONE (11:00)
[2022-03-02] MEDS ORDERED: FLUMAZENIL 0.1 MG/ML (5 mL VIAL) IV ONE (11:00)
[2022-03-02] MEDS ORDERED: FENTANYL CITR 100 MCG/2 ML ONE (11:00)
[2022-03-02] MEDS ORDERED: PHENOL 1.4% ORAL SPRAY 180ML ONE (11:18)
[2022-03-02] MEDS ORDERED: NA CHLORIDE 0.9% 500 ML ONE (11:32)
[2022-03-02] MEDS ORDERED: D10W 250 ML BAG IV PRN (16:42)
[2022-03-02] MEDS: FUROSEMIDE 40 MG TABLET PO SCH (17:23)
--- NOTE | 2022-03-02 19:01 | PN ---
Date of Progress Note: 03/02/2022 Subjective: Seen by bedside. She is doing well. Heart rate is down. I tried to do a DANIEL-guided ca rdioversion today; however, she had spontaneous smoke in the left atrium with possible thrombosis the re, so the cardioversion was not done. Her ejection fraction was normal on echo. Her breathing is b donn. No chest pain. Review of Systems: No chest pain. Shortness of breath is improved. No nausea, vomiting, diarrhea. No abdominal pain. No dysuria, polyuria, or urinary urgency. All other systems reviewed and they were negative. Physical Examination: Vital Signs: Temperature is 96.9, pulse is 86, breathing at 18, blood pressure is 123/53, saturating 98% on room air. General: Pleasant elderly female, in no apparent distress. Obese. Head and Neck: Pupils are equal, reactive to light. Intact eye movements. No JVD. No cervical lym phadenopathy. Neck is supple. Thyroid is not enlarged. Lungs: Clear to auscultation bilaterally. No rhonchi, wheezing, or crackles. No accessory muscle u se. Heart: Irregularly irregular. No extra sounds. Abdomen: Soft, nontender. Bowel sounds positive. No organomegaly. No masses or hernia. No rigidi ty or rebound. Extremities: No clubbing or cyanosis. Intact pulses. Skin: No rash. Neurologic: Alert, awake, oriented x3. No acute focal deficits appreciated. Investigations: BUN 43, creatinine 1.09, and her hemoglobin is 11.4. Assessment And Recommendations: 1.Acute on chronic diastolic heart failure exacerbation. She appears to be getting euvolemic. Cardenas ge Lasix to oral 40 mg by mouth twice a day. Transfer upstairs from ICU. 2.Atrial fibrillation, rate is controlled now. Attempted DANIEL-guided cardioversion; however, she has a spontaneous smoke in the left atrium and left atrial appendage with possible thrombus. At this po int, the cardioversion was aborted. Discontinue IV amiodarone, start her on amiodarone 200 mg twice a day, and continue on metoprolol 50 mg by mouth 3 times a day and transfer to the floor and start ph ysical therapy. 3.Hypertension. Blood pressure is controlled. If we have any issues with blood pressure going down , then to hold the losartan. The patient needs to be continued on Eliquis 5 mg twice a day and plan in about 6 weeks without interruption of the Eliquis to do the cardioversion due to the heart failure symptoms. SR/MODL Voice ID: [id number] Report ID: [id number]
[2022-03-02] MEDS: AMIODARONE HCL 200 MG TAB PO SCH (20:54)
--- NOTE | 2022-03-03 00:43 | OP ---
Date of Procedure: 03/02/2022 Surgeon: IZZY BONILLA Procedure Performed: Transesophageal echocardiogram. Indication: Atrial fibrillation. We will plan for DANIEL guided cardioversion. Description Of Procedure: After risks, benefits, and alternatives were explained, the patient agreed to procedure and signed informed consent. At the bedside in the ICU, the back of the throat was num bed using local lidocaine and then given her 5 mg of Versed and then inserted the DANIEL probe without d ifficulty. Transesophageal echo was performed and found there is left atrial appendage thrombus, so cardioversion was not done. DANIEL probe was removed and then the patient woke up after that and she wa s clinically stable. Conclusion: Spontaneous smoke in the left atrial appendage with early stages of thrombus formation. Plan: Continue Eliquis and rate-controlling medications. SR/MODL Voice ID: [id number] Report ID: [id number]
[2022-03-03] MEDS: IPRATROPIUM BROM 0.5MG/2.5ML NEB SCH ×4 (01:40→20:00)
[2022-03-03 03:54] LABS: Absolute Lymphocytes (CBC) 0.9 K/uL (0.7-4.9); Hematocrit 34.2 % (36.0-45.0); Lymphocytes % 8.8 % (15.3-44.8); MCV 90.4 fL (80-100); MPV 7.7 fL (7.6-11.3); RBC Red Blood Cell Count 3.79 M/uL (3.86-4.86)
[2022-03-03 04:05] LABS: Potassium 3.4 mmol/L (3.5-5.1)
[2022-03-03] MEDS ORDERED: POTASSIUM 25 MEQ EFFERV TAB PO ONE (06:00)
[2022-03-03] MEDS: INSULIN -REGULAR HUMAN 50 UNIT/0.5 ML ML SQ SCH ×4 (07:30→21:00)
[2022-03-03] MEDS ORDERED: POTASSIUM CL SA 10 MEQ TAB PO ONE (07:49)
--- NOTE | 2022-03-03 07:55 | TEE ---
TRANSESOPHAGEAL ECHOCARDIOGRAM REPORT CARDIOLOGY DEPARTMENT DATE OF STUDY: 03/02/2022 HEIGHT: 5 ft. 5 in. 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 NORMAL LEFT VENTRICULAR EJECTION FRACTION 55-60%. MILD MITRAL REGURGITATION. MILD TRICUSPID REGURGITATION. TECHNOLOGIST: KATHERINE DELVALLE
[2022-03-03] MEDS: BETAMETHASONE DIPROPIONATE TOP SCH ×2 (09:00→20:43)
[2022-03-03] MEDS: MUPIROCIN 2% OINT 22GM TUBE TOP SCH (09:00)
[2022-03-03] MEDS: POTASSIUM CL SA 10 MEQ TAB PO SCH ×2 (09:00→20:36)
[2022-03-03] MEDS: D5LR 500 ML IV SCH ×2 (10:07→16:40)
[2022-03-03] MEDS: AMIODARONE HCL 200 MG TAB PO SCH ×2 (10:07→20:37)
[2022-03-03] MEDS: FUROSEMIDE 40 MG TABLET PO SCH ×2 (10:07→16:54)
[2022-03-03] MEDS: APIXABAN 5 MG TABLET PO SCH ×2 (10:09→20:37)
[2022-03-03] MEDS: ASPIRIN EC 81 MG TAB PO SCH (10:09)
[2022-03-03] MEDS: LOSARTAN POTASSIUM 50 MG TABLET PO SCH (10:09)
[2022-03-03] MEDS: METOPROLOL TAR 50 MG TAB PO SCH ×3 (10:09→20:37)
[2022-03-03] MEDS: PANTOPRAZOLE 40MG TABLET PO SCH ×2 (10:09→16:54)
[2022-03-03] MEDS ORDERED: D10W 250 ML BAG IV PRN (16:44)
[2022-03-03] MEDS ORDERED: DEXTROSE 10%-WATER 500 ML IV BAG IV PRN (16:58)
--- NOTE | 2022-03-03 18:32 | P.PN ---
Subjective Date of Service: 03/03/22 Chief Complaint: SOB No acute events overnight. Transesophageal echocardiogram performed yesterday was concerning for left atrial appendage thrombus, so synchronized cardioversion was not attempted. Initial plan was for discharge home with apixaban; however, her glucose was 40 this morning, so will monitor her throughout the day before discharging. She denies any chest pain, shortness of breath, or palpitations. Review of Systems 10-point ROS is otherwise unremarkable Physical Examination - Vital Signs Temperature: 98.0 F Blood Pressure: 113/63 Pulse: 97 Respirations: 20 Pulse Ox (%): 99 - Studies Medications List Reviewed: Yes Assessment And Plan - Plan - Physical Exam General: Alert, In no apparent distress, Oriented x3 HEENT: Atraumatic, PERRLA, Mucous membr. moist/pink, EOMI, Sclerae nonicteric Neck: Supple, JVD not distended Respiratory: Clear to auscultation bilaterally, Normal air movement Cardiovascular: No edema, No gallops, No rubs, No murmurs, Irregular heart rate/rhythm Capillary refill: <2 Seconds Gastrointestinal: Normal bowel sounds, Soft and benign, Non-distended, No tenderness, No rebound, No guarding Musculoskeletal: No clubbing Integumentary: No rashes Neurological: Normal speech, Cranial nerves 3-12 intact, Normal affect # Paroxysmal Atrial Fibrillation with Rapid Ventricular Response Her [id number] = 6 (CHF=1, HTN=1, Age>75=2, DM2=1, Sex=1), which warrants anticoagulation. - Cardiology consulted - recommendations appreciated - Troponin = 9.1 -> 5.3 - Transthoracic echocardiogram = "normal left ventricular ejection fraction 55- 60%. normal wall motion. bi-atrial enlargement. severe diastolic dysfunction. moderate to severe tricuspid regurgitation. moderate mitral regurgitation. severe pulmonary hypertension. 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, now with Hypoglycemia - Unclear why on steroids, she reports that she does not take steroids at home - will discontinue - Electrolyte profile does not support adrenal insufficiency - Blood glucose down to 40 today - Hgb A1c = 6.3 % - Discontinue metformin + glimepiride - Continue correction scale insulin # Acute on Chronic Decompensated Diastolic Congestive Heart Failure with Preserved Ejection Fraction # Severe Pulmonary Hypertension # Moderate-Severe Tricuspid Regurgitation # Moderate Mitral Regurgitation # Hypertension - Consult Cardiology - recommendations appreciated - Transthoracic echocardiogram = "normal left ventricular ejection fraction 55- 60%. normal wall motion. bi-atrial enlargement. severe diastolic dysfunction. moderate to severe tricuspid regurgitation. moderate mitral regurgitation. severe pulmonary hypertension. right ventricular systolic pressure of > 60 mmHg." - Diuresis with IV furosemide for today - Continue metoprolol, losartan - Daily weights - Strict I/O - Cardiac diet, 1.5 L fluid restriction, 2 g Na restriction # Gastroesophageal Reflux Disease - Continue pantoprazole # History of Bile Duct Cancer # History of Breast Cancer # Microscopic Hematuria - Follow-up with PCP for further evaluation Isasc Salazar M.D.
[2022-03-03] MEDS: ACETAMINOPHEN 325 MG TABLET PO PRN (21:18)
[2022-03-03] MEDS: LORATADINE 10 MG TAB PO PRN (21:18)
[2022-03-04] MEDS: IPRATROPIUM BROM 0.5MG/2.5ML NEB SCH ×3 (01:10→14:23)
[2022-03-04 06:27] LABS: Potassium 5.1 mmol/L (3.5-5.1)
[2022-03-04] MEDS ORDERED: NA CHLORIDE 0.9% 500 ML IV ONE (07:21)
[2022-03-04] MEDS: INSULIN -REGULAR HUMAN 50 UNIT/0.5 ML ML SQ SCH ×3 (07:30→16:29)
[2022-03-04] MEDS: PANTOPRAZOLE 40MG TABLET PO SCH (08:03)
[2022-03-04] MEDS: POTASSIUM CL SA 10 MEQ TAB PO SCH (08:03)
[2022-03-04] MEDS: AMIODARONE HCL 200 MG TAB PO SCH (08:04)
[2022-03-04] MEDS: LOSARTAN POTASSIUM 50 MG TABLET PO SCH (08:04)
[2022-03-04] MEDS: APIXABAN 5 MG TABLET PO SCH (08:04)
[2022-03-04] MEDS: ASPIRIN EC 81 MG TAB PO SCH (08:04)
[2022-03-04] MEDS: METOPROLOL TAR 50 MG TAB PO SCH ×2 (08:04→14:51)
[2022-03-04] MEDS: MUPIROCIN 2% OINT 22GM TUBE TOP SCH (08:04)
[2022-03-04] MEDS: BETAMETHASONE DIPROPIONATE TOP SCH (08:05)
[2022-03-04] MEDS ORDERED: FUROSEMIDE 40 MG TABLET PO SCH (09:00)
[2022-03-04] MEDS: ACETAMINOPHEN 325 MG TABLET PO PRN (14:51)
[2022-03-04 15:24] LABS: Potassium 5.3 mmol/L (3.5-5.1)
--- NOTE | 2022-03-04 15:57 | P.DS ---
Admission Date: 02/25/22 Discharge Date: 03/04/22 Disposition: ROUTINE DISCHARGE Discharge Condition: GOOD Reason for Admission: SOB Consultations: 1. 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 She was admitted to the Medicine service. She was treated with diuretics and had significant improvement in her respiratory status. In regards to her atrial fibrillation, she was treated with an amiodarone drip and transitioned to PO amiodarone. A transesophageal echocardiogram was performed for possible synchronized cardioversion, but this was aborted as her DANIEL revealed, "spontaneous smoke in the left atrial appendage with early stages of thrombus formation." Following this procedure, she was cleared by Dr. Henriquez to be discharged from a cardiology standpoint. He recommended discharge on apixaban, which was prescribed for her. Her discharge was delayed yesterday, due to hypoglycemia thought to be secondary to medication side effects. Her anti- glycemic medications were held and she had improvement in her glucose levels. Additionally, her hospitalization was complicated by an acute kidney injury with hyperkalemia. I advised that she stay an additional day to evaluate her acute kidney injury, but she stated that she wanted to be discharged today under all circumstances. I spoke with Nephrology (Dr. Green), who stated that it was reasonable to discharge her if she has close follow-up. He was able to arrange for her to be seen in his clinic on 03/06/2022. He recommended that she be discharged on kayexalate every other day for 3 doses and to have her losartan held until this appointment. She will continue on her home torsemide. On 03/04/2022, she was seen on rounds and deemed medically stable for discharge. She was discharged with instructions to schedule follow-up appointments with her PCP (MICH Vasquez) in 3-5 days and with Nephrology (Dr. Green) on 03/06/2022 (she has an appointment at 14:30). She was provided prescriptions for kayexalate and amiodarone. The patient and family members were given the opportunity to ask questions and reported no further questions. Furthermore, all questions were answered to the best of my ability. A copy of this discharge summary will be sent to the above providers to facilitate continuity of care. Today, I personally spent 40 minutes on her case, of which greater than 50% of the time was spent in patient education, counseling, and coordination of care as described above. - Physical Exam General: Alert, In no apparent distress, Oriented x3 HEENT: Atraumatic, PERRLA, Mucous membr. moist/pink, EOMI, Sclerae nonicteric Neck: Supple, JVD not distended Respiratory: Clear to auscultation bilaterally, Normal air movement Cardiovascular: No edema, No gallops, No rubs, No murmurs, Irregular heart rate/rhythm Capillary refill: <2 Seconds Gastrointestinal: Normal bowel sounds, Soft and benign, Non-distended, No tenderness, No rebound, No guarding Musculoskeletal: No clubbing Integumentary: No rashes Neurological: Normal speech, Cranial nerves 3-12 intact, Normal affect Vital Signs/Physical Exam: Temp Pulse Resp BP Pulse Ox 98.0 F 82 18 110/61 98 03/04/22 08:00 03/04/22 08:00 03/04/22 08:00 03/04/22 08:00 03/04/22 08:00 Laboratory Data at Discharge: WBC 10.50 K/uL (4.3-10.9) 03/03/22 03:08 Hgb 11.0 g/dL (12.0-15.0) L 03/03/22 03:08 Hct 34.2 % (36.0-45.0) L 03/03/22 03:08 Plt Count 315 K/uL (152-406) 03/03/22 03:08 PT 26.4 SECONDS (9.5-12.5) H 02/25/22 14:43 INR 2.40 02/25/22 14:43 Sodium 131 mmol/L (136-145) L 03/04/22 14:47 Potassium 5.3 mmol/L (3.5-5.1) H 03/04/22 14:47 BUN 46 mg/dL (7-18) H 03/04/22 14:47 Creatinine 1.46 mg/dL (0.55-1.3) H 03/04/22 14:47 Glucose 132 mg/dL (74-106) H 03/04/22 14:47 Phosphorus 3.0 mg/dL (2.5-4.9) 03/02/22 05:26 Magnesium 2.2 mg/dL (1.8-2.4) 03/02/22 05:26 Total Bilirubin 0.8 mg/dL (0.2-1.0) 03/02/22 05:26 AST 17 U/L (15-37) 03/02/22 05:26 ALT 21 U/L (12-78) 03/02/22 05:26 Alkaline Phosphatase 89 U/L (45-117) 03/02/22 05:26 Home Medications: RX: Torsemide [Demadex] 20 mg PO DAILY 04/03/17 RX: Apixaban [Eliquis] 5 mg PO BID 02/26/22 RX: Metoprolol Succinate [Toprol Xl*] 50 mg PO BID 02/26/22 RX: Pantoprazole [Protonix Tab*] 40 mg PO DAILY 02/26/22 RX: Amiodarone HCl [Cordarone*] 200 mg PO BID #60 tab 03/04/22 RX: Sodium Polystyrene Sulfonate 15 gm PO M,W,F 6 Days #3 packet 03/04/22 New Medications: RX: Amiodarone HCl [Cordarone*] 200 mg PO BID #60 tab RX: Sodium Polystyrene Sulfonate 15 gm PO M,W,F 6 Days #3 packet Physician Discharge Instructions: 1. Please schedule a follow-up appointment with your PCP (MICH Vasquez) in 3-5 days 2. Please attend your scheduled Nephrology appointment with Dr. Green on 03/06/2022 - Please hold your losartan until this appointment - Dr. Green will recheck your blood work at this appointment Diet: Renal Activity: Fall precautions Followup: Jack Vasquez PA [Primary Care Provider] - Lucas Green [ACTIVE - CAN ADMIT] - Time spent managing pt's care (in minutes): 40
[2022-03-04 16:23] VITALS: O2SAT 94
--- NOTE | 2022-03-04 17:20 | PN ---
Date of Progress Note: 03/03/2022 Subjective: Seen by bedside, doing clinically well. Heart rate stabilized. Breathing is better. Review of Systems: There is no chest pain, shortness of breath, orthopnea, cough. No nausea, vomiting, diarrhea. All o ther systems reviewed and they were negative. Physical Examination: Vital Signs: Reviewed. Head and Neck: Pupils are equal, reactive to light. Intact eye movements. No JVD. No cervical lym phadenopathy. Neck is supple. Thyroid is not enlarged. Lungs: Clear to auscultation bilaterally. No rhonchi, wheezing, or crackles. No accessory muscle u se. Heart: Irregularly irregular. No extra sounds. Abdomen: Soft, nontender. Bowel sounds positive. No organomegaly. No masses or hernia. No rigidi ty or rebound. Extremities: Trace edema bilaterally. No clubbing or cyanosis. Intact pulses. Skin: No rash. Neurologic: Alert, awake, oriented x3. No acute focal deficits appreciated. Investigations: Labs were reviewed. Assessment And Recommendations: 1.Atrial fibrillation, now rate is controlled. She has left atrial appendage thrombus. Continue ap ixaban and continue amiodarone and beta-david. 2.Acute on chronic diastolic heart failure exacerbation. Doing well. Continue oral Lasix. 3.Hypertension. Blood pressure is controlled. SR/MODL Voice ID: [id number] Report ID: [id number]
--- NOTE | 2022-03-04 17:40 | PN ---
Date of Progress Note: 03/04/2022 Subjective: Seen by bedside, doing clinically well. Denies any chest pain or shortness of breath. No orthopnea, cough. No nausea, vomiting, diarrhea. No abdominal pain. No dysuria, polyuria, or ur inary urgency. All other systems reviewed and they were negative. Physical Examination: Vital Signs: Reviewed. Head and Neck: Pupils are equal, reactive to light. Intact eye movements. No JVD. No cervical lym phadenopathy. Neck is supple. Thyroid is not enlarged. Lungs: Clear to auscultation bilaterally. No rhonchi, wheezing, or crackles. No accessory muscle u se. Heart: Irregularly irregular. No extra sounds. Abdomen: Soft, nontender. Bowel sounds positive. No organomegaly. No masses or hernia. No rigidi ty or rebound. Extremities: No edema, clubbing, or cyanosis. Intact pulses. Skin: No rash. Neurologic: Alert, awake, oriented x3. No acute focal deficits appreciated. Investigations: BUN 44, creatinine 1.4. Assessment And Recommendations: 1.Acute on chronic diastolic heart failure. She is doing much better, but she is slightly dry today , so hold the Lasix and the patient was hydrated gently. Recheck BNP this afternoon. If it improves , then the patient can be released home on Lasix 40 mg daily at home. 2.Atrial fibrillation with left atrial appendage thrombus. Continue Eliquis, metoprolol, and amioda crescencio and we will follow the patient up as an outpatient in 1-2 weeks post discharge and we will plan for doing a left atrial appendage cl osure using Watchman device. /AICHA Voice ID: [id number] Report ID: [id number]
[2022-03-04 18:23] VITALS: BP 102/56; TEMP 97.5
[2022-03-05] MEDS ORDERED: FUROSEMIDE 40 MG TABLET PO SCH (09:00)
== END 2022-03-04 17:27 | disposition home or self-care (01) | DRG 291 ==
LOC: ER 11:22 → ERHOLD 16:41 → 3RD-ICU 21:38 → 4TH 03-02 18:26
PROVIDERS: ADMIT Hospitalist; ATTEND Internal Medicine
PROC: 5A09457 Assistance with Respiratory Ventilation, 24-96 Consecutive Hours, Continuous Positive Airway Pressure (ICD-10-PCS; 2022-02-25)
PROC: B245ZZ4 Ultrasonography of Left Heart, Transesophageal (ICD-10-PCS; principal; 2022-03-02)
DX: I11.0 Hypertensive heart disease with heart failure (principal); I50.33 Acute on chronic diastolic (congestive) heart failure; J96.01 Acute respiratory failure with hypoxia; I31.39 Other pericardial effusion (noninflammatory); C24.0 Malignant neoplasm of extrahepatic bile duct; E87.1 Hypo-osmolality and hyponatremia; N17.9 Acute kidney failure, unspecified; I48.0 Paroxysmal atrial fibrillation; I89.0 Lymphedema, not elsewhere classified; K21.9 Gastro-esophageal reflux disease without esophagitis; I08.1 Rheumatic disorders of both mitral and tricuspid valves; E87.5 Hyperkalemia; I51.3 Intracardiac thrombosis, not elsewhere classified; E11.649 Type 2 diabetes mellitus with hypoglycemia without coma; E09.65 Drug or chemical induced diabetes mellitus with hyperglycemia; T38.0X5A Adverse effect of glucocorticoids and synthetic analogues, initial encounter; I27.20 Pulmonary hypertension, unspecified; E66.09 Other obesity due to excess calories; R31.29 Other microscopic hematuria; R13.10 Dysphagia, unspecified; Z85.3 Personal history of malignant neoplasm of breast; Z88.0 Allergy status to penicillin; Z95.0 Presence of cardiac pacemaker; Z88.8 Allergy status to other drugs, medicaments and biological substances; Z79.01 Long term (current) use of anticoagulants; Z68.38 Body mass index [BMI] 38.0-38.9, adult; Z90.10 Acquired absence of unspecified breast and nipple; Z98.51 Tubal ligation status; Z79.899 Other long term (current) drug therapy; Z90.710 Acquired absence of both cervix and uterus; Z20.822 Contact with and (suspected) exposure to COVID-19
CPT/HCPCS: 36415; 71045; 71250; 80048; 80053; 80076; 81001; 82947; 83036; 83735; 83880; 84100; 84132; 84145; 84439; 84443; 84484; 85025; 85610; 87086; 87088; 87811; 93005; 93306; 93312; 94640; 94660; 99285; J0282; J0360; J1644; J1815; J1940; J2250; J2920; J3010; J3475; J7040; J7060; J7121; J7512; P9047

== ENCOUNTER 2022-03-08 00:26 | Inpatient (IN) | payer OTHER ==
--- OUTSIDE RECORDS SUMMARY | 2022-03-08 00:32 | XMS REPORT | Continuity of Care Document ---
:1945 Author Organization [facility] t Address [address] [place] [address] Care Team Providers Name Role Phone Asked, No Pcp Primary Care Physician Unavailable RICHARD OLIVAREZ Attending Clinician Unavailable AMINTA JONAS Attending Clinician Unavailable TERRIE JEAN Attending Clinician Unavailable PATY COOPER Attending Clinician Unavailable GIGI BLEDSOE Attending Clinician Unavailable UNIQUE FARNSWORTH Attending Clinician Unavailable Doctor Unassigned, [place] Attending Clinician Unavailable Sindhu Benjamin RN Attending Clinician Unavailable RANDI VILLARREAL Attending Clinician Unavailable Randi Villarreal MD Attending Clinician Carloz Topete MD Attending Clinician BIANKA SOUSA Attending Clinician Unavailable CELESTE MARRERO Attending Clinician Unavailable MD BIANKA SOUSA Attending Clinician Unavailable RANDI VILLARREAL Admitting Clinician Unavailable Randi Villarreal MD Admitting Clinician BIANKA SOUSA Admitting Clinician Unavailable MD BIANKA SOUSA Admitting Clinician Unavailable Payers Payer Name Policy Type Policy Number Effective Date Expiration Date Cindy kemp [employer] MEDICARE PPO [id number] 2021 00:00:00 Problems Condition Condition Condition Status Onset Resolution Last Treating Co mments Source Name Details Category Date Date Treatment Clinician Date Jaundice Jaundice Disease Active Unive rs 7-03 ity of 00:00: [place] [facility] Tachycardi Tachycardi Disease Active M ethodi a a 2-17 st 00:00: Hospita 00 l Essential Essential Disease Active Uni vers hypertensi hypertensi 09-15 it y of on on 00:00: [place] [address] Medical Branch Atrial Atrial Disease Active Univers fibrillati fibrillati 09-15 it y of on on 00:00: [place] [address] Medical Branch Chronic Chronic Disease Active Univers anticoagul anticoagul 09-15 it y of ation ation 00:00: [place] [address] Medical Branch Postoperat Postoperat Disease Active U nivers yue pain yue pain 09-14 ity of 00:00: [place] [facility] Allergies, Adverse Reactions, Alerts Allergy [...] drug PENICILL Drug Active Low Rash 2019-0 Univers INS Class 5-06 ity of 00:00: [address] Penic[place] Propensi Active Rash 2019-0 In the [facility] ins ty to 5-06 60s ity of adverse 00:00: [place] reaction 00 Medical s Branch PENICILL Drug Active Low Rash 2019-0 MD [...] INS Class 5-06 Anderso 00:00: n 00 Family History Family Member Diagnosis Comments Start Date Stop Date Source Natural brother Cancer [facility] Natural father Mental illness Method ist [facility] Natural mother Hypertension Methodis t [facility] Natural sister Cancer [facility] Social History Social Habit Start Date Stop Date Quantity Comments Source History SDOH [facility] Drinks History SDOH [facility] Exposure to 2021-10-30 2021-11-09 Not sure University SARS-CoV-2 00:00:00 15:36:00 [place] [facility] (event) [facility] Alcohol intake 2020-07-16 2020-07-16 Lifetime [facility] 00:00:00 00:00:00 non-drinker Hospital (finding) History SDOH 2020-06-28 2020-06-28 1 [facility] Frequency 00:00:00 00:00:00 Hospita l Tobacco use and 2018-09-12 2018-09-12 Smokeless tobacco Un iversity of exposure 00:00:00 00:00:00 non-user [facility] Sex Ass[birth year] [facility] 00:00:00 00:00:00 Hospital Smoking Status Start Date Stop Date Source Tobacco smoking consumption Meth [facility] unknown Never smoked tobacco [facility] Medications Ordered Filled Start Stop Current Ordering Indication Dosage Frequency Signature Comments Components Source Medication Medication Date Date Medication? Clinician (SIG) Name Name pantoprazol Yes [id number] 40mg Take 1 Univers e 40 mg EC 7-08 tablet by ity of tablet 00:00: mouth [place] 00 daily. Medical Branch triamcinolo Yes Apply to Un gallito ne 7-08 affected ity of acetonide 00:00: area(s) [place] 0.1 % cream 00 daily. Medica l Branch amLODIPine Yes [id number] 10mg Take 1 U nivers 10 mg 7-08 tablet by ity of tablet 00:00: mouth [place] 00 daily. Medical Branch pantoprazol Yes [id number] 40mg Take 1 Univers e 40 mg EC 7-08 tablet by ity of tablet 00:00: mouth [place] 00 daily. Medical Branch triamcinolo Yes Apply to Un gallito ne 7-08 affected ity of acetonide 00:00: area(s) [place] 0.1 % cream 00 daily. Medica l Branch amLODIPine Yes [id number] 10mg Take 1 U nivers 10 mg 7-08 tablet by ity of tablet 00:00: mouth [place] 00 daily. Medical Branch pantoprazol Yes [id number] 40mg Take 1 Univers e 40 mg EC 7-08 tablet by ity of tablet 00:00: mouth [place] 00 daily. Medical Branch triamcinolo Yes Apply to Un gallito ne 7-08 affected ity of acetonide 00:00: area(s) [place] 0.1 % cream 00 daily. Medica l Branch amLODIPine Yes [id number] 10mg Take 1 U nivers 10 mg 7-08 tablet by ity of tablet 00:00: mouth [place] 00 daily. Medical Branch pantoprazol Yes [id number] 40mg Take 1 Univers e 40 mg EC 7-08 tablet by ity of tablet 00:00: mouth [place] 00 daily. Medical Branch triamcinolo Yes Apply to Un gallito ne 7-08 affected ity of acetonide 00:00: area(s) [place] 0.1 % cream 00 daily. Medica l Branch amLODIPine Yes [id number] 10mg Take 1 U nivers 10 mg 7-08 tablet by ity of tablet 00:00: mouth [place] 00 daily. Medical Branch glipiZIDE Yes 5mg Take 5 [...] by mouth ity of tablet 17:26: daily. [place] [address] Medical Branch loratadine 2022-0 Yes 5mg Take 5 mg Un gallito (CLARITIN 7-07 by mouth. ity o f ORAL) 17:26: [place] [address] Medical Branch glipiZIDE 2022-0 Yes 5mg Take 5 [...] by mouth ity of tablet 17:26: daily. [place] [address] Medical Branch loratadine 2-0 Yes 5mg Take 5 mg Un [place] (CLARITIN 7-07 by mouth. ity o f ORAL) 17:26: [place] [address] Medical Branch glipiZIDE 2-0 Yes 5mg Take 5 [...] by mouth ity of tablet 17:26: daily. [address] Branch loratadine 2022-0 Yes 5mg Take 5 mg Un [place] (CLARITIN 7-07 by mouth. ity o f ORAL) 17:26: [address] Branch apixaban 5 2-0 Yes 5mg Take 1 Unive rs mg tablet 7-07 tablet by ity o f 00:00: mouth 2 [place] 00 (two) Medical times Branch daily. metoprolol 2022-0 Yes 50mg Take 1 Unive rs succinate 7-07 tablet by ity o f XL 50 mg 24 00:00: mouth 2 Y[place] as hr tablet 00 (two) Medical times Branch daily. apixaban 5 2-0 Yes 5mg Take 1 Unive rs mg tablet 7-07 tablet by ity o f 00:00: mouth 2 [place] 00 (two) Medical times Branch daily. metoprolol 2022-0 Yes 50mg Take 1 Unive rs succinate 7-07 tablet by ity o f XL 50 mg 24 00:00: mouth 2 [place] as hr tablet 00 (two) Medical times Branch daily. apixaban 5 2-0 Yes 5mg Take 1 [...] 00 (two) Medical times Branch daily. potassium 2020-0 Yes 20meq Q.5D Take 20 Meth hoa chloride 2-[address] (K-DUR) 10 12:25: mouth 2 Hosp jr MEQ CR 00 (two) l tablet times a day. losartan-hy Yes 1{tbl} QD Take 1 Me thodi drochloroth 2-[address] iazide 12:25: mouth Hospita (HYZAAR) 00 daily. l 100-12.5 mg Dose per tablet unkown torsemide 2020-0 Yes 20mg QD Take 20 mg Me thodi (DEMADEX) 2-[address] 20 MG 12:25: daily. Hospita tablet 00 l potassium 2020-0 Yes 20meq Q.5D Take 20 Meth hoa [...] 12:25: daily. Hospita tablet 00 l dabigatran Yes 150mg Q.5D Take 1 Meth hoa etexilate 2-[address] (PRADAXA) 00:00: (150 mg Hospi ta 150 mg 00 total) by l capsu mouth 2 (two) times a day. dabigatran Yes 150mg Q.5D Take 1 Meth hoa etexilate 2-[address] (PRADAXA) 00:00: (150 mg Hospi ta 150 mg 00 total) by l capsu mouth 2 (two) times a day. Procedures Procedure Date / Time Performing Clinician Source Performed EXTERNAL PROVIDER 2021-11-27 05:01:00 Doctor Unassigned, [facility] Branch AUTHORIZATION FOR 2021-11-20 05:01:00 Doctor Unassigned, No [facility] RELEASE OF [facility] Name Medical Branch Plan of Care Planned Activity Planned Date Details Comments Source Future Scheduled 2022-03-08 HEPATITIS B VACCINES [facility] Test 00:29:46 (1 of 3 - 3-dose series) [code = HEPATITIS B VACCINES (1 of 3 - 3-dose series)] Future Scheduled 2022-03-08 COVID-19 VACCINE (#1) [facility] Test 00:29:46 [code = COVID-19 VACCINE (#1)] Future Scheduled 2022-03-08 Hepatitis C screening [facility] Test 00:29:46 (procedure) [code = 883850109] Future Scheduled 2022-03-08 COLONOSCOPY SCREENING [facility] Test 00:29:46 [code = COLONOSCOPY SCREENING] Future Scheduled 2022-03-08 SHINGLES VACCINES (1 [facility] Test 00:29:46 of 2) [code = SHINGLES VACCINES (1 of 2)] Future Scheduled 2022-03-08 65+ [facility] 00:29:46 VACCINE (1 - PCV) [code = 65+ PNEUMOCOCCAL VACCINE (1 - PCV)] Future Scheduled 2022-03-08 INFLUENZA VACCINE [facility] Test 00:29:46 [code = INFLUENZA VACCINE] Future Scheduled 2022-02-25 HEPATITIS B VACCINES [facility] Test 11:25:50 (1 of 3 - 3-dose series) [code = HEPATITIS B VACCINES (1 of 3 - 3-dose series)] Future Scheduled 2022-02-25 COVID-19 VACCINE (#1) [facility] Test 11:25:50 [code = COVID-19 VACCINE (#1)] Future Scheduled 2022-02-25 Hepatitis C screening [facility] Test 11:25:50 (procedure) [code = [id number]] Future Scheduled 2022-02-25 COLONOSCOPY SCREENING [facility] Test 11:25:50 [code = COLONOSCOPY SCREENING] Future Scheduled 2022-02-25 SHINGLES VACCINES (1 [facility] Test 11:25:50 of 2) [code = SHINGLES VACCINES (1 of 2)] Future Scheduled 2022-02-25 65+ [facility] 11:25:50 VACCINE (1 - PCV) [code = 65+ PNEUMOCOCCAL VACCINE (1 - PCV)] Future Scheduled 2022-02-25 INFLUENZA VACCINE [facility] Test 11:25:50 [code = INFLUENZA VACCINE] Encounters Start End Encounter Admission Attending Care Care Encounter Source Date/Time Date/Time Type Type Clinicians Facility Department ID 2022-02-10 2022-02-10 Outpatient VICTOR M DUKES MDA, MDA [id number] 13:55:09 15:52:35 Ham GRAY 2022-02-09 2022-02-09 Outpatient VICTOR M DUKES MDA, MDA [id number] 12:50:42 23:59:00 Ham GRAY 2022-02-09 2022-02-09 Outpatient VICTOR M DUKES MDA, MDA [id number] 13:03:48 16:24:28 Ham GRAY 2022-01-20 2022-01-20 Outpatient VICTOR M JONAS MDA MDA [id number] 15:27:21 17:36:53 AMINTA johnson 2022-01-20 2022-01-20 Outpatient EL PRITESH, MDA MDA [id number] 15:09:11 15:26:45 AMINTA johnson 2022-01-20 2022-01-20 Outpatient EL ROSELINE MDA MDA [id number] 14:46:40 14:46:40 Ham GRAY 2022-01-13 2022-01-14 Outpatient EL ROSELINE MDA MDA [id number] 15:12:34 07:24:20 Ham GRAY 2022-01-06 2022-01-06 Outpatient EL MIRANDA, MDA MDA [id number] 11:06:31 11:58:23 TERRIE johnson 2022-01-05 2022-01-05 Outpatient EL SCHLEMBACH, MDA MDA [id number] 18:00:00 23:59:00 PATY johnson 2022-01-05 2022-01-05 Outpatient EL SCHLEMBACH, MDA MDA [id number] 16:24:43 17:59:00 PATY johnson 2022-01-05 2022-01-05 Outpatient EL FOLLODER, MDA MDA [id number] 13:16:47 16:23:00 GIGI johnson 2022-01-05 2022-01-05 Outpatient EL FOLLODER, MDA MDA [id number] 07:21:28 12:53:00 GIGI johnson 2022-01-05 2022-01-05 Outpatient EL SCHLEMBACH, MDA MDA [id number] 07:56:57 12:04:56 PATY johnson 2022-01-05 2022-01-05 Outpatient EL FOLLODER, MDA MDA [id number] 07:57:23 07:57:23 GIGI johnson 2022-01-05 2022-01-05 Outpatient EL FOLLODER, MDA MDA [id number] 07:00:00 07:20:00 GIGI johnson 2021-12-22 2021-12-22 Outpatient EL ROSELINE MDA MDA [id number] 13:00:56 14:15:24 Ham GRAY 2021-12-10 2021-12-10 Outpatient EL ROSELINE MDA MDA [id number] 10:00:10 10:00:10 Ham GRAY 2021-12-08 2021-12-08 Outpatient VICTOR M FARNSWORTH, MDA MDA [id number] 16:45:00 23:59:00 UNIQUE Baez rso n 2021-12-08 2021-12-08 Outpatient VICTOR M FARNSWORTH, MDA MDA [id number] 18:07:49 18:07:49 UNIQUE Baez rskahlil n 2021-12-08 2021-12-08 Outpatient EL ROSELINE MDA MDA [id number] 14:12:24 16:35:30 Ham GRAY 2021-12-08 2021-12-08 Outpatient VICTOR M COOPER, MDA MDA [id number] 14:10:28 14:12:48 PATY johnson 2021-11-27 2021-11-27 Orders Doctor BERG [id number] Univers 00:00:00 00:00:00 Only Unassigned, CARLA [id number] ity of [place] [facility] [id number] Yovanny as [phone] [facility] 009 Branch 2021-11-20 2021-11-20 Orders Doctor BERG [id number] Univers 00:00:00 00:00:00 Only Unassigned, CARLA [id number] ity of [place] [facility] [id number] Yovanny as [phone] [facility] 009 Branch 2021-11-14 2021-11-14 Transition DAVI Benjamin [id number] Univers 00:00:00 00:00:00 of Care Sindhu B [place] [id number] it [id number] [phone] [facility] 403 Branch 2021-11-09 2021-11-13 Inpatient U [facility] [id number] Univers 00:58:00 15:43:00 RANDI seth of [facility] 2021-11-09 2021-11-13 Hospital MARYURI Villarreal [id number] Univers 00:58:00 15:43:00 Encounter Randi Durham CARLA [id number] ity [facility] [id number] [place] as [phone] [facility] 090 Branch 2021-11-09 2021-11-13 [facility] [id number] Univers 00:58:00 15:43:00 RANDI ity [facility] 2021-11-12 2021-11-12 Multidisci Parupudi, UNIVERSIT [id number] Univers 00:00:00 00:00:00 plinary Carloz Y HEALTH [id number] i ty [facility] [id number] [place] [phone] [facility] 071 [place] 2021-11-11 2021-11-11 Surgery [facility] [id number] Univers 10:47:00 12:33:00 Carloz ICAL [id number] [facility] of [facility] [id number] Yovanny as BLDG [phone] [facility] [address] [place] 2020-06-26 2020-06-29 Inpatient MERRY, [facility] [id number] [place] 00:00:00 00:00:00 BIANKA 782 Method i 2020-06-28 2020-06-28 [facility] [id number] [place] 00:00:00 00:00:00 CELESTE [address] 2020-06-27 2020-06-27 [facility] [id number] [place] 00:00:00 00:00:00 CELESTE 323 Method i Results Test Description Test Time Test Comments Results Result Comments Source SARS-CoV-2 (COVID-19) RNA [Presence] in Respiratory sp ecimen by 2020-06-26 21:47:04 LAUREANO with probe detection Test Item Value Reference Range Interpretation Comme nts SARS-CoV-2 (COVID-19) RNA [Presence] in Respiratory Not detected No t-Detected specimen by LAUREANO with probe detection (test code = 13937-0) [facility] [place]
[2022-03-08] MEDS ORDERED: AMIODARONE HCL 150 MG/3 ML INJ IV ONE (03:05)
[2022-03-08] MEDS ORDERED: D5W 100 ML IV ONE (03:05)
[2022-03-08] MEDS ORDERED: AMIODARONE IN DEXTROSE,ISO-OSM 360 MG/200 ML BAG IV ONE (03:05)
[2022-03-08 03:13] LABS: Absolute Lymphocytes (CBC) 1.3 K/uL (0.7-4.9); Hematocrit 35.6 % (36.0-45.0); Lymphocytes % 14.1 % (15.3-44.8); MCV 89.1 fL (80-100); MPV 7.9 fL (7.6-11.3); RBC Red Blood Cell Count 3.99 M/uL (3.86-4.86)
[2022-03-08 03:18] LABS: Protime INR 4.15
[2022-03-08 03:34] LABS: Albumin 3.2 g/dL (3.4-5.0); Bilirubin Direct 0.6 mg/dL (0-0.2); Magnesium 2.3 mg/dL (1.8-2.4); Protein, Total 7.5 g/dL (6.4-8.2); Troponin High Sensitivity 5.9 pg/mL (<58.9)
[2022-03-08 03:36] LABS: Potassium 5.7 mmol/L (3.5-5.1)
--- NOTE | 2022-03-08 03:54 | EDPHYS ---
Physician Documentation [facility] Name: Carmina Salcido Age: 76 yrs Sex: Female : 1945 Arrival Date: 03/08/2022 Time: 00:33 Bed 6 Private MD: ED Physician Jeaneth Elizabeth HPI: 03/08 01:20 This 76 yrs old Female presents to ER via Wheelchair with complaints of Breathing sd2 Difficulty. 01:20 76 yo F presents with CC of SOB. Was recently discharged from the hospital for CHF sd2 exacerbation. Reports was doing well and has been compliant with medications until the last few days when urine output decreased despite taking her diuretics and she had progressively worsening edema, SOB and PND. No known fevers, vomiting or diarrhea. Does endorse nausea and loss of appetite.. Historical: - Allergies: :18 amlodipine (Anaphylaxis); with swelling in mouth \T\ systemic; tw5 01:18 metronidazole; tw5 01:18 PENICILLINS; tw5 - PMHx: 01:18 Atrial Fib; BILE DUCT CANCER; breast cancer; NO IV or BP cuff to Right arm; CHF; tw5 Hypertension; Pacemaker; - PSHx: 01:18 hysterectomy; mastectomy; tw5 - Immunization history:: Flu vaccine is not up to date. - Social history:: Smoking status: Patient denies any tobacco usage or history of. ROS: 01:20 Constitutional: Negative for fever, chills, and weight loss, Eyes: Negative for injury, sd2 pain, redness, and discharge, Cardiovascular: Negative for chest pain, palpitations, and positive for edema, Respiratory: Positive for shortness of breath, Negative for cough, wheezing. Abdomen/GI: Negative for abdominal pain, vomiting, diarrhea. Positive for nausea. MS/Extremity: Negative for injury and deformity, Skin: Negative for injury, rash, and discoloration, Neuro: Negative for headache, numbness and tingling. Exam: 01:20 Constitutional: This is a well developed, well nourished patient who is awake, alert, sd2 and in no acute distress. Head/Face: Normocephalic, atraumatic. Eyes: EOMI, normal conjunctiva bilaterally Chest/axilla: Normal chest wall appearance and motion. Nontender with no deformity. Cardiovascular: Regular rate and rhythm with a normal S1 and S2. No gallops, murmurs, or rubs. 2+ distal pulses. 3+ pitting edema to BLEs. Respiratory: Lungs have equal breath sounds bilaterally, clear to auscultation and percussion. No rales, rhonchi or wheezes noted. No increased work of breathing, no retractions or nasal flaring. Abdomen/GI: Soft, non-tender, with normal bowel sounds. No guarding or rebound. No evidence of tenderness throughout. Skin: Warm, dry with normal turgor. Normal color with no rashes, no lesions, and no evidence of cellulitis. Chronic venous skin stasis changes noted to BLEs. MS/ Extremity: Pulses equal, no cyanosis. Neurovascular intact. Full, normal range of motion. Ambulatory without difficulty. Psych: Awake, alert, with orientation to person, place and time. Behavior, mood, and affect are within normal limits. 03:08 ECG was reviewed by the Attending Physician. Atrial fibrillation with RVR, wide sd2 complex, rate 121, no STEMI criteria, no significant change compared to prior EKG on 02/25/22 Vital Signs: 01:14 BP 90 / 73; Pulse 118; Resp 18; Temp 97.3; Pulse Ox 100% on R/A; Weight 99.79 kg; tw5 Height 5 ft. 4 in. (162.56 cm); Pain 0/10; 01:45 BP 115 / 96; Pulse 119; Resp 17 S; Pulse Ox 97% on R/A; as6 03:12 BP 126 / 64; Pulse 111; Resp 25 S; Pulse Ox 97% on R/A; as6 03:46 BP 97 / 57; Pulse 94; Resp 24 S; Pulse Ox 95% on R/A; as6 04:30 BP 122 / 97; Pulse 94; Resp 27 S; Pulse Ox 96% on R/A; as6 05:09 BP 90 / 51; Pulse 94; Resp 19 S; Pulse Ox 94% on R/A; as6 05:59 BP 83 / 64; Pulse 60; Resp 25 S; Pulse Ox 97% on R/A; as6 06:49 BP 92 / 66; Pulse 60; Resp 17 S; Pulse Ox 98% on R/A; as6 01:14 Body Mass Index 37.76 (99.79 kg, 162.56 cm) tw5 MDM: 01:18 Patient medically screened. sd2 01:20 Differential diagnosis: Differential diagnosis includes but is not limited to: ACS, sd2 DVT/PE, pneumothorax, dissection, musculoskeletal, anxiety, anemia, electrolyte abnormality, pneumonia, CHF, COPD among others. Data reviewed: vital signs, nurses notes. 03:50 Data reviewed: lab test result(s), EKG, radiologic studies. Counseling: I had a sd2 detailed discussion with the patient and/or guardian regarding: the historical points, exam findings, and any diagnostic results supporting the discharge/admit diagnosis, lab results, radiology results, the need for further work-up and treatment in the hospital. ED course: Labs and imaging reviewed. Hyponatremia likely 2/2 fluid overload seen on CXR. New acute renal failure also present with mild hyperkalemia. No EKG changes. HR improved on Amiodarone gtt. Plan to admit for further management at this time. . 07:42 ED course: I was consulted by Dr. Salazar for placement of a central line. The patient's kdr blood pressure had been trending downward. After assessment, I determined that the patient's physical habitus and prior interventions and surgeries were going to lend itself towards a potentially difficult placement scenario. After that assessment, I attempted to contact the on-call surgeon without immediate success. Given the fact that the patient's blood pressure was somewhat soft, I initiated a consultation to Dr. Judge who agreed to come and evaluate the patient and possibly attempt central line placement. The patient's current systolic blood pressure is 92 with a heart rate of 60. That rate is a paced rhythm.. 03/08 01:19 Order name: Basic Metabolic Panel; Complete Time: 03:47 sd2 03/08 01:19 Order name: CBC with Diff; Complete Time: 03:17 sd2 03/08 01:19 Order name: LFT's; Complete Time: 03:47 sd2 03/08 01:19 Order name: Magnesium; Complete Time: 03:47 sd2 03/08 01:19 Order name: NT PRO-BNP; Complete Time: 03:47 sd2 03/08 01:19 Order name: PT-INR; Complete Time: 03:29 sd2 03/08 01:19 Order name: Troponin HS; Complete Time: 03:47 sd2 03/08 01:19 Order name: XRAY Chest (1 view) sd2 03/08 01:19 Order name: Ptt, Activated; Complete Time: 03:29 sd2 03/08 03:01 Order name: SARS RAPID as6 03/08 09:01 Order name: Cortisol EDMS 03/08 01:19 Order name: EKG; Complete Time: 01:20 sd2 03/08 01:19 Order name: Cardiac monitoring; Complete Time: 01:57 sd2 03/08 01:19 Order name: EKG - Nurse/Tech; Complete Time: 02:18 sd03/08 01:19 Order name: IV Saline Lock; Complete Time: 02:59 sd2 03/08 01:19 Order name: Labs collected and sent; Complete Time: 02:59 sd03/08 01:19 Order name: O2 Per Protocol; Complete Time: 01:57 03/08 01:19 Order name: O2 Sat Monitoring; Complete Time: 01:57 sd2 Administered Medications: 03:10 Drug: amiodarone 150 mg Volume: 100 ml; Route: IVPB; Infused Over: 10 mins; Site: left as upper arm; 06:45 Follow up: Response: No adverse reaction; IV Status: Completed infusion; IV Intake: as6 100ml 03:27 Drug: amiodarone 900 mg, D5W 500 ml Route: IVPB; Rate: 1 mg/min; Site: left upper arm; as6 07:00 Follow up: IV Status: Infusion continued upon admission jl7 04:35 Drug: D50W 50 ml Route: IVP; Site: left upper arm; as6 06:45 Follow up: Response: No adverse reaction as6 04:36 Drug: Tylenol 500 mg Route: PO; as6 06:45 Follow up: Response: No adverse reaction as6 04:40 Drug: Albuterol 5 mg Route: Inhalation; as6 06:45 Follow up: Response: No adverse reaction as6 04:43 Drug: Lasix (furosemide) 80 mg Route: IVP; Site: left upper arm; as6 06:45 Follow up: Response: No adverse reaction as6 05:07 Drug: Insulin Regular Human 10 units {Co-Signature: tw5 (Yamile Jerome).} Route: IVP; as6 Site: left upper arm; 06:45 Follow up: Response: No adverse reaction as6 Disposition Summary: 10/30/22 03:53 Hospitalization Ordered Hospitalization Status: Inpatient Admission sd2 Provider: Issac Salazar sd2 Condition: Critical sd2 Problem: an ongoing problem sd2 Symptoms: are unchanged sd2 Bed/Room Type: Standard sd2 Location: Intensive Care Unit(03/08/22 07:49) aa5 Room Assignment: 1-(03/08/22 07:49) aa5 Diagnosis - Acute renal failure sd2 - Hyperkalemia sd2 - Hyponatremia sd2 - Fluid overload sd2 Forms: - Medication Reconciliation Form sd2 - SBAR form sd2 Signatures: Dispatcher [employer] EDRiley De La Garza MD MD kdr Deysi Jc RN RN aa5 Neal Teague FNP-C FNP-Angie Crump RN RN cg Wood, Tiffany 5 Jake Boateng RN RN as6 Jeaneth Elizabeth MD MD sd2 Jarod Mccartney RN jl7 Yamile Jerome [facility] Corrections: (The following items were deleted from the chart) 04:01 03:53 Intensive Care Unit sd2 cg 04:01 03:53 sd2 cg 07:49 04:01 [facility] ER HOLD cg aa5 07:49 04:01 HOLD- cg aa5
--- NOTE | 2022-03-08 03:54 | ER ---
Nurse's Notes [facility] Name: Carmina Salcido Age: 76 yrs Sex: Female : 1945 Arrival Date: 03/08/2022 Time: 00:33 Bed 6 Private MD: Diagnosis: Acute renal failure;Hyperkalemia;Hyponatremia;Fluid overload Presentation: 03/08 01:14 Chief complaint: Patient states: "I feel like I cannot breath. I was in the hospital tw5 all week." Family reports " She was in the hospital last week, but since she got home she has been slowly deteriorating.". Coronavirus screen: Vaccine status: Patient reports receiving the 2nd dose of the covid vaccine. J and J. Ebola Screen: Patient negative for fever greater than or equal to 101.5 degrees Fahrenheit, and additional compatible Ebola Virus Disease symptoms Patient denies exposure to infectious person. Patient denies travel to an Ebola-affected area in the 21 days before illness onset. Initial Sepsis Screen: Does the patient meet any 2 criteria? Systolic BP < 90 mmHg. HR > 90 bpm. Does the patient have a suspected source of infection? No. Patient's initial sepsis screen is negative. Risk Assessment: Do you want to hurt yourself or someone else? Patient reports no desire to harm self or others. Onset of symptoms is unknown. 01:14 Method Of Arrival: Wheelchair tw5 01:14 Acuity: ALANA 2 tw5 Triage Assessment: 01:18 General: Appears uncomfortable, Behavior is quiet. Pain: Denies pain. Respiratory: tw5 Reports shortness of breath at rest Onset: The symptoms/episode began/occurred gradually, the patient has moderate shortness of breath. Historical: - Allergies: 01:18 amlodipine (Anaphylaxis); with swelling in mouth \\T\\ systemic; tw 01:18 metronidazole; tw 01:18 PENICILLINS; tw - PMHx: 01:18 Atrial Fib; BILE DUCT CANCER; breast cancer; NO IV or BP cuff to Right arm; CHF; tw Hypertension; Pacemaker; - PSHx: 01:18 hysterectomy; mastectomy; tw - Immunization history:: Flu vaccine is not up to date. - Social history:: Smoking status: Patient denies any tobacco usage or history of. Screenin:13 Abuse screen: Denies threats or abuse. Denies injuries from another. Nutritional as6 screening: No deficits noted. Tuberculosis screening: No symptoms or risk factors identified. Fall Risk None identified. Assessment: 03:13 General: Appears uncomfortable, ill, obese, Behavior is calm, cooperative. Pain: Denies as6 pain. Neuro: Level of Consciousness is awake, alert, obeys commands. Cardiovascular: Rhythm is atrial fibrillation with rapid ventricular response. Respiratory: Reports shortness of breath at rest on exertion. 06:49 General: Behavior is anxious. as6 Vital Signs: 01:14 BP 90 / 73; Pulse 118; Resp 18; Temp 97.3; Pulse Ox 100% on R/A; Weight 99.79 kg; tw5 Height 5 ft. 4 in. (162.56 cm); Pain 0/10; 01:45 BP 115 / 96; Pulse 119; Resp 17 S; Pulse Ox 97% on R/A; as6 03:12 BP 126 / 64; Pulse 111; Resp 25 S; Pulse Ox 97% on R/A; as6 03:46 BP 97 / 57; Pulse 94; Resp 24 S; Pulse Ox 95% on R/A; as6 04:30 BP 122 / 97; Pulse 94; Resp 27 S; Pulse Ox 96% on R/A; as6 05:09 BP 90 / 51; Pulse 94; Resp 19 S; Pulse Ox 94% on R/A; as6 05:59 BP 83 / 64; Pulse 60; Resp 25 S; Pulse Ox 97% on R/A; as6 06:49 BP 92 / 66; Pulse 60; Resp 17 S; Pulse Ox 98% on R/A; as6 01:14 Body Mass Index 37.76 (99.79 kg, 162.56 cm) tw5 ED Course: 00:33 Patient arrived in ED. bp1 00:43 Jeanteh Elizabeth MD is Attending Physician. sd2 01:14 Yamile Jerome is Primary Nurse. tw5 01:18 Triage completed. tw5 01:18 Arm band placed on. tw5 01:57 Patient has correct armband on for positive identification. Bed in low position. Call mm9 light in reach. Side rails up X 1. Adult w/ patient. Warm blanket given. neurodiagnostic technician on. Pulse ox on. NIBP on. 02:11 XRAY Chest (1 view) In Process Unspecified. EDMS 02:18 EKG done, by ED staff, reviewed by Jeaneth Elizabeth MD. mm9 02:59 Accessed peripheral vein via ultrasound, utilizing dynamic ultrasound technique Blood as6 collected. using 20G Nexia IV catheter ,sterile technique, per hospital protocol. Clean \\T\\ dry. Dressing intact. Good blood return. Flushes easily. 20g 10 cm midline to left upper arm . 03:35 Notified ED physician of a critical lab result(s). pot 5.7 cr 2.76. tw5 03:52 Issac Salazar MD is Hospitalizing Provider. sd2 05:10 No provider procedures requiring assistance completed. Patient admitted, IV remains in as6 place. 07:07 Primary Nurse role handed off by Yamile Jerome 07:14 Jarod Mccartney, RHONDA is Primary Nurse. jl7 Administered Medications: 03:10 Drug: amiodarone 150 mg Volume: 100 ml; Route: IVPB; Infused Over: 10 mins; Site: left as6 upper arm; 06:45 Follow up: Response: No adverse reaction; IV Status: Completed infusion; IV Intake: as6 100ml 03:27 Drug: amiodarone 900 mg, D5W 500 ml Route: IVPB; Rate: 1 mg/min; Site: left upper arm; as6 07:00 Follow up: IV Status: Infusion continued upon admission jl7 04:35 Drug: D50W 50 ml Route: IVP; Site: left upper arm; as6 06:45 Follow up: Response: No adverse reaction as6 04:36 Drug: Tylenol 500 mg Route: PO; as6 06:45 Follow up: Response: No adverse reaction as6 04:40 Drug: Albuterol 5 mg Route: Inhalation; as6 06:45 Follow up: Response: No adverse reaction as6 04:43 Drug: Lasix (furosemide) 80 mg Route: IVP; Site: left upper arm; as6 06:45 Follow up: Response: No adverse reaction as6 05:07 Drug: Insulin Regular Human 10 units {Co-Signature: tw5 (Yamile Jerome).} Route: IVP; as6 Site: left upper arm; 06:45 Follow up: Response: No adverse reaction as6 Medication: 05:10 VIS not applicable for this client. as6 Intake: 06:45 IV: 100ml; Total: 100ml. as6 Outcome: 03:53 Decision to Hospitalize by Provider. sd2 05:10 Admitted to ER Hold. Please see [facility] for further documentation. as6 05:10 Condition: stable 05:10 Instructed on the need for admit. 09:17 Patient left the ED. aa5 Signatures: Dispatcher [employer] EDDeysi Mcelroy RN RN aa5 Jarod Mccartney RN RN jl7 Radha Naranjo Brittany bp1 Wood, Tiffany tw5 Jake Boateng RN RN as6 Jeaneth Elizabeth MD MD sd2 Ana Le 9 Yamile Jerome tw5
--- NOTE | 2022-03-08 04:11 | P.HP ---
Certification for Inpatient Patient admitted to: Inpatient With expected LOS: >2 Midnights Patient will require the following post-hospital care: None Practitioner: I am a practitioner with admitting privileges, knowledge of patient current condition, hospital course, and medical plan of care. Services: Services provided to patient in accordance with Admission requirements found in Title 42 Section 412.3 of the Code of Federal Regulations <Neal Teague - Last Filed: 03/08/22 04:03> Patient History Date of Service: 03/08/22 Reason for admission: ARF, CHF exacerbation, A. 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 She was discharged from the hospital here on 03/04/2022 after being treated for CHF exacerbation, acute kidney injury. She was initially doing well at home the first few days but then yesterday her urine output began to decrease significantly despite the use of her diuretics. She is evaluated here in the emergency department her labs were significant for PT of 45.7 INR 4.15 PTT 39.4 sodium 122 potassium 5.7 chloride 86 creatinine 2.76 GFR 17 glucose 295 BUN 50 chest x-ray obtained pending official interpretation. Similar to previous. Patient was in A. fib RVR with a rate of around 120-130, she started on amiodarone drip in the emergency department. She is also given insulin/dextrose/Lasix/albuterol for her hyperkalemia. Patient is much better rate controlled at this time A. fib with a rate of around 95. ED provider wishes to admit for further evaluation and management of acute renal failure, CHF exacerbation, A. fib RVR. - Past Medical/Surgical History Diabetic: Yes -: Chronic diastolic congestive heart failure -: Chronic atrial fibrillation on chronic anticoagulation -: Hypertension -: Diabetes mellitus type II -: Pulmonary hypertension -: GERD -: Mastectomy -: Hysterectomy -: Tubal Ligation -: Tonsillectomy Psychosocial/ Personal History: Patient lives at home with family - Family History Mother -: Hypertension Father -: Hypertension Notes: Alzheimers Sister -: Cancer Notes: breast cancer. thyroid problems Brother -: Cancer Notes: Prostate Cancer - Social History Smoking Status: Never smoker Alcohol use: No CD- Drugs: No Caffeine use: No Place of Residence: Home <GarethclintonNeal Hernandez - Last Filed: 03/08/22 04:03> Date of Service: 03/08/22 <Issac Salazar - Last Filed: 03/08/22 10:14> Allergies amlodipine Allergy (Verified 02/25/22 23:16) Anaphylaxis Penicillins Allergy (Verified 03/28/20 20:39) Rash metronidazole [From Flagyl] Adverse Reaction (Verified 03/28/20 20:39) Rash Home Medications: Torsemide [Demadex] 20 mg PO DAILY 04/03/17 Apixaban [Eliquis] 5 mg PO BID 02/26/22 Metoprolol Succinate [Toprol Xl*] 50 mg PO BID 02/26/22 Pantoprazole [Protonix Tab*] 40 mg PO DAILY 02/26/22 Amiodarone HCl [Cordarone*] 200 mg PO BID #60 tab 03/04/22 Sodium Polystyrene Sulfonate 15 gm PO M,W,F 6 Days #3 packet 03/04/22 Review of Systems 10-point ROS is otherwise unremarkable Respiratory: Shortness of Breath, SOB with Excertion Cardiovascular: Orthopnea, Edema, As per HPI Genitourinary: Other (Decreased urinary output) <Neal Teague - Last Filed: 03/08/22 04:03> Physical Examination - Physical Exam General: Alert, In no apparent distress, Oriented x3 HEENT: Atraumatic, PERRLA, Mucous membr. moist/pink, EOMI, Sclerae nonicteric Neck: Supple, 2+ carotid pulse no bruit, No LAD, Without JVD or thyroid abnormality Respiratory: Diminished, Crackles/rales Cardiovascular: Normal S1 S2, Edema (2+ pitting edema bilateral lower extremities), Irregular heart rate/rhythm (A. fib, rate [id number]) Capillary refill: <2 Seconds Gastrointestinal: Normal bowel sounds, No tenderness Musculoskeletal: No tenderness Integumentary: No rashes Neurological: Normal speech, Normal strength at 5/5 x4 extr, Normal tone, Normal affect - Studies Laboratory Data (last 24 hrs) 03/08/22 02:56: PT 45.7 H, INR 4.15 H*, APTT 39.4 H 03/08/22 02:56: WBC 9.30, Hgb 11.8 L, Hct 35.6 L, Plt Count 407 H 03/08/22 02:56: Sodium 122 L, Potassium 5.7 H*, BUN 50 H, Creatinine 2.76 H, Glucose 295 H, Magnesium 2.3, Total Bilirubin 1.0, AST 31, ALT 29, Alkaline Phosphatase 125 H <Neal Teague - Last Filed: 03/08/22 04:03> - Studies Laboratory Data (last 24 hrs) 03/08/22 02:56: PT 45.7 H, INR 4.15 H*, APTT 39.4 H 03/08/22 02:56: WBC 9.30, Hgb 11.8 L, Hct 35.6 L, Plt Count 407 H 03/08/22 02:56: Sodium 122 L, Potassium 5.7 H*, BUN 50 H, Creatinine 2.76 H, Glucose 295 H, Magnesium 2.3, Total Bilirubin 1.0, AST 31, ALT 29, Alkaline Phosphatase 125 H <Issac Salazar - Last Filed: 03/08/22 10:14> Assessment and Plan - Plan Assessment: Acute renal failure with hyperkalemia Acute on chronic diastolic congestive heart failure Hyponatremia Atrial fibrillation with rapid ventricular responseon chronic anticoagulation Diabetes mellitus type 2 with hyperglycemia GERD Hypertension Plan: Acute renal failure with hyperkalemia: Suspect combination of CRS/diuretic use. Nephrology consulted, renal ultrasound ordered. Patient received insulin/dextrose/albuterol/Lasix in the emergency department. Given hyperkalemia as well as hyponatremia will repeat BMP this morning and again in the afternoon. Monitor on telemetry. Appreciate further input from nephrology/cardiology. Acute on chronic diastolic congestive heart failure: Patient reports she was do ing well until her urinary output decreased yesterday she reports significant worsening edema to lower extremities, orthopnea, dyspnea. Continue with IV Lasix, cardiology consult in place along with nephrology. Hyponatremia: Suspect related to volume overload, continue diuresis, 1.5 L/day fluid restriction. Repeat BMP later this morning and again in the afternoon. Atrial fibrillation with rapid ventricular responseon chronic anticoagulation: Patient was started on amiodarone drip in the emergency department, continue amnio drip, rate is currently controlled. Hold Eliquis given significantly elevated INR. SCDs for DVT prophylaxis. Diabetes mellitus type 2 with hyperglycemia: Patient with significant hypoglycemia during last admission continue with mild sliding scale insulin. Also reports has not been eating well. GERD: Continue Protonix. Hypertension: Currently with borderline low blood pressure, hold off on antihypertensive agents. DVT PPX: SCD-Elevated INR Code status:Full Discharge Plan: Home Plan to discharge in: Greater than 2 days - Advance Directives Does patient have a Living Will: No Does patient have a Durable POA for Healthcare: No - Code Status/Comfort Care Code Status Assessed: Yes (Full code) Critical Care: No Time Spent Managing Pts Care (In Minutes): 70 <Neal Teague - Last Filed: 03/08/22 04:03> Physician Review: Patient Assessed, Agree with Above Assessment and Plan <Issac Salazar - Last Filed: 03/08/22 10:14>
[2022-03-08] MEDS ORDERED: ACETAMINOPHEN 500 MG TAB ONE (04:26)
[2022-03-08] MEDS ORDERED: ALBUTEROL 2.5 MG/3 ML NEB SOL ONE (04:26)
[2022-03-08] MEDS ORDERED: FUROSEMIDE 100 MG/10 ML VIAL IV ONE (04:26)
[2022-03-08] MEDS ORDERED: D10W 250 ML IV ONE (04:27)
[2022-03-08] MEDS ORDERED: INSULIN -REGULAR HUMAN 50 UNIT/0.5 ML ML ONE (04:27)
[2022-03-08 05:23] LABS: SARS-CoV-2 Antigen Rapid Res Negative (Negative)
[2022-03-08] MEDS ORDERED: ONDANSETRON 4 MG/2 ML VIAL IV PRN (07:05)
[2022-03-08] MEDS ORDERED: HYDROCORTISONE SUC 100 MG INJ ONE (07:08)
[2022-03-08] MEDS ORDERED: NOREPINEPHRINE BITARTRATE/D5W 4 MG/250 ML BAG IV ONE ×3 (07:09→12:43)
[2022-03-08] MEDS ORDERED: Ringers Lactate 1,000 ML IV ONE (07:13)
[2022-03-08] MEDS ORDERED: PANTOPRAZOLE 40MG TABLET PO SCH (07:30)
[2022-03-08] MEDS ORDERED: INSULIN -REGULAR HUMAN 50 UNIT/0.5 ML ML SQ SCH (07:30)
[2022-03-08] MEDS ORDERED: NOREPINEPHRINE BITARTRATE/D5W 4 MG/250 ML BAG IV SCH (07:45)
[2022-03-08] MEDS ORDERED: HYDROCORTISONE SUC 100 MG INJ IV ONE (07:59)
[2022-03-08] MEDS ORDERED: AMIODARONE HCL 900 MG in Dextrose 5%-Water 482 ML IV SCH (08:00)
[2022-03-08] MEDS ORDERED: WATER FOR INJ,STERILE 10 ML IV SCH (08:00)
[2022-03-08] MEDS ORDERED: Ringers Lactate 500 ML IV ONE (08:01)
--- NOTE | 2022-03-08 08:59 | P.OP ---
Preoperative diagnosis: Need for Central Venous Access Postoperative diagnosis: Need for Central Venous Access Primary procedure: Placement of LEFT Central Venous Catheter Secondary procedure: Ultrasound guidance and microintroducer used Anesthesia: Local 1% lidocaine Estimated blood loss: 10cc Specimen: none Findings: dark non-pulsatile blood returned Complications: None Transferred to: Other (ER) Condition: Serious
[2022-03-08] MEDS ORDERED: FUROSEMIDE 40 MG/4 ML VIAL IV SCH (09:00)
[2022-03-08 09:22] VITALS: TEMP 97.3
[2022-03-08] MEDS ORDERED: RSI MEDICATION KIT IV ONE (09:33)
[2022-03-08] MEDS ORDERED: MIDAZOLAM HCL 5 ML ONE (09:34)
[2022-03-08 09:59] LABS: Absolute Lymphocytes (CBC) 2.6 K/uL (0.7-4.9); Lymphocytes % 15.3 % (15.3-44.8); MPV 8.1 fL (7.6-11.3); RBC Red Blood Cell Count 4.02 M/uL (3.86-4.86)
--- NOTE | 2022-03-08 10:21 | RAD REPORT ---
EXAM DESCRIPTION: Sofit Single View03/08/2022 10:02 am CLINICAL HISTORY: Device placement endotracheal tube placement IMPRESSION: An endotracheal tube has been inserted with its tip overlying the aortic knob in good po sition. Nasogastric tube within the junction of the gastric fundus and body
--- NOTE | 2022-03-08 10:26 | P.PN ---
Date of Service: 03/08/22 I had seen her earlier today on rounds and she was alert and oriented x4 to person, place, time, and situation. On rounds, I noted her blood pressure to be in the 50s/30s. I ordered hydrocortisone 100 mg IV x1, and within 15 minutes her systolic blood pressure had increased to the 90s. At this time, the suspicion was that she had developed adrenal insufficiency. I requested that we have a central line placed, and spoke with Dr. Judge. After central line was placed, she was transferred to the intensive care unit for further management. Upon arrival to the intensive care unit, she apparently became unresponsive and lost her pulse. Carson Licona called at 09:24 AM. I arrived at bedside shortly after to find cardiopulmonary resuscitation in progress. On the next pulse check, she had no pulse and demonstrated asystole on the personnel monitor. Calcium chloride and epinephrine were given. Dr. Gan arrived shortly after and managed the remainder of the Carson Licona. He performed successful endotracheal intubation, without any apparent complications. Return of spontaneous circulation was achieved at 09:35 AM. Post code labs were obtained, and thus far, have revealed postcode leukocytosis and lactic acidosis. At this time, there is no evidence of infection to suspect septic shock. Her initial EKG was notable for a QTc interval of 580 msec; however, this is difficult to interpret given that she was in atrial fibrillation with rapid ventricular response. I have held her amiodarone for the time being. I have consulted Nephrology and spoke with Dr. Calhoun, who stated that he will evaluate her shortly. I have also consulted Cardiology and called Dr. Henriquez, I am currently waiting for a call back. She is hemodynamically stable for now on norepinephrine and mechanical ventilation. Unable to consult Pulmonary/Critical Care Medicine as this service is unavailable at that this time. Post intubation chest x-ray is currently pending. I have updated her daughter, Ms. Tony, and explained the severity of her current clinical condition. For now, she request that we continue aggressive management and she will speak with her father (Ms. Salcido's ) for further information. We will continue to monitor her closely in the intensive care unit. Issac Salazar M.D.
[2022-03-08 10:37] LABS: Troponin High Sensitivity 7.4 pg/mL (<58.9)
[2022-03-08 10:38] LABS: Potassium 5.2 mmol/L (3.5-5.1)
[2022-03-08 10:39] LABS: Magnesium 2.2 mg/dL (1.8-2.4)
[2022-03-08 10:42] LABS: Arterial Blood Carboxyhemoglob 0.6 % (0-1.5); Blood Gas Oxyhemoglobin 97.4 % (94-97)
[2022-03-08] MEDS ORDERED: MAGNESIUM SULFATE 1 gm IVPB 1 GM/100 ML BAG IV ONE (11:00)
[2022-03-08] MEDS ORDERED: VASOPRESSIN 80 UNIT in NA CHLORIDE 0.9% 250 ML IV PRN (11:06)
[2022-03-08 11:07] VITALS: BP 81/35
[2022-03-08 11:29] LABS: Urine RBC >50 /HPF (None Seen); Urine WBC Clump Many /HPF (None Seen)
[2022-03-08 11:34] LABS: Anisocytosis 1+; Blood Morphology Comment NOTED (NOT SEEN); Platelet Estimate ADEQ
[2022-03-08] MEDS ORDERED: ETOMIDATE 20 MG/10 ML VIAL IV ONE (11:55)
[2022-03-08] MEDS ORDERED: ROCURONIUM 50 MG/5 ML VIAL IV ONE (11:55)
--- NOTE | 2022-03-08 11:58 | P.DS ---
Admission Date: 03/08/22 Discharge Date: 03/08/22 Disposition: TRANSFER TO [facility] Comment: [facility] - ICU Discharge Condition: FAIR Reason for Admission: ARF, CHF exacerbation, A. fib RVR Consultations: 1. Cardiology 2. Nephrology 3. General Surgery 4. Emergency Medicine Procedures: - 03/08/2022 - Endotracheal Intubation Hospital Course: DIAGNOSES: # Asystole/Pulseless Electrical Activity Cardiac Arrest s/p CPR and Endotracheal Intubation # Suspect Vasodilatory Shock with Lactic Acidosis # Paroxysmal Atrial Fibrillation with Rapid Ventricular Response # KDIGO Stage II Acute Kidney Injury with Hyperkalemia # Acute on Chronic Decompensated Diastolic Congestive Heart Failure with Preserved Ejection Fraction # Left Atrial Appendage Thrombus on Apixaban # Acute on Chronic Hyponatremia # Concern for Adrenal Insufficiency # Hyperglycemia in Type II Diabetes Mellitus # Severe Pulmonary Hypertension # Moderate-Severe Tricuspid Regurgitation # Moderate Mitral Regurgitation # Hypertension # Gastroesophageal Reflux Disease # History of Bile Duct Cancer # History of Breast Cancer # Microscopic Hematuria HOSPITAL COURSE: Ms. Carmina Salcido is a 76 year old female with a past medical history significant for chronic atrial fibrillation, chronic diastolic congestive heart failure, severe pulmonary hypertension, and bile duct cancer on immunotherapy who was admitted to the [facility] on 03/08/2022 for an acute on chronic decompensated congestive heart failure exacerbation and atrial fibrillation with rapid ventricular response. She was admitted to the Medicine service. Shortly after admission, she was found to be hypotensive with blood pressures in the 50s/30s. I suspected that she may have developed adrenal insufficiency, so she was given a dose of hydrocortisone 100 mg IV x1. Shortly after the administration of hydrocortisone, her systolic blood pressures increased to the 90s. General Surgery was consulted and a central catheter was placed. She was transferred up to the intensive care unit, but shortly after arriving to the intensive care unit she went into asystole and a Code Blue was called. During the code her rhythm alternated between asystole and pulseless electrical activity. Return of spontaneous circulation was achieved within 6 minutes. She required 2 rounds of epinephrine and 1 dose of calcium chloride during the code. Emergency Medicine was consulted and placed an endotracheal tube successfully. She was placed on mechanical ventilation. Postcode she was persistently hypotensive, so she was started on norepinephrine and titrated upwards. Given that Pulmonary/Critical Care Medicine is not available at our facility at this time, I recommended that she be transferred to a higher level of care. I discussed her poor prognosis and current clinical condition in detail with multiple family members present in the hospital. Among those family members included her , Mr. Millard, and her daughter, Ms. Tony, who agreed with aggressive management and transfer. With the help of the transfer center, I spoke and completed a doctodoc with Dr. Lin ([facility]), who has generously accepted her for transfer. A Life Flight was arranged and she was transferred to [facility] for higher level of care. A copy of this discharge summary will be sent to the above providers to facilitate continuity of care. Today, I personally spent 60 minutes on her case, of which greater than 50% of the time was spent in patient education, counseling, and coordination of care as described above. Vital Signs/Physical Exam: Temp Pulse Resp BP Pulse Ox 97.3 F 99 H 16 81/35 L 97 03/08/22 01:14 03/08/22 11:00 03/08/22 11:00 03/08/22 11:00 03/08/22 11:00 General: In no apparent distress, Other (sedated on mechanical ventilator) HEENT: Atraumatic, Mucous membr. moist/pink, Sclerae nonicteric Neck: Supple, JVD distended Respiratory: Diminished, Crackles/rales Cardiovascular: Edema (2-3+), Irregular heart rate/rhythm, Systolic murmur Capillary refill: >2 Seconds Gastrointestinal: Hypoactive, Soft and benign, Non-distended, No tenderness, No rebound, No guarding Musculoskeletal: No clubbing Integumentary: No rashes Neurological: Other (sedated) Laboratory Data at Discharge: WBC 17.10 K/uL (4.3-10.9) H 03/08/22 09:47 Hgb 11.8 g/dL (12.0-15.0) L 03/08/22 09:47 Hct 37.0 % (36.0-45.0) 03/08/22 09:47 Plt Count 336 K/uL (152-406) 03/08/22 09:47 PT 45.7 SECONDS (9.5-12.5) H 03/08/22 02:56 INR 4.15 H* 03/08/22 02:56 APTT 39.4 SECONDS (24.3-36.9) H 03/08/22 02:56 Sodium 123 mmol/L (136-145) L 03/08/22 10:00 Potassium 5.2 mmol/L (3.5-5.1) H 03/08/22 10:00 BUN 51 mg/dL (7-18) H 03/08/22 10:00 Creatinine 3.14 mg/dL (0.55-1.3) H 03/08/22 10:00 Glucose 179 mg/dL (74-106) H 03/08/22 10:00 Phosphorus 7.0 mg/dL (2.5-4.9) H 03/08/22 10:07 Magnesium 2.2 mg/dL (1.8-2.4) 03/08/22 10:07 Total Bilirubin 1.0 mg/dL (0.2-1.0) 03/08/22 02:56 AST 31 U/L (15-37) 03/08/22 02:56 ALT 29 U/L (12-78) 03/08/22 02:56 Alkaline Phosphatase 125 U/L (45-117) H 03/08/22 02:56 Home Medications: Torsemide [Demadex] 20 mg PO DAILY 04/03/17 Apixaban [Eliquis] 5 mg PO BID 02/26/22 Metoprolol Succinate [Toprol Xl*] 50 mg PO BID 02/26/22 Pantoprazole [Protonix Tab*] 40 mg PO DAILY 02/26/22 Amiodarone HCl [Cordarone*] 200 mg PO BID #60 tab 03/04/22 Sodium Polystyrene Sulfonate 15 gm PO M,W,F 6 Days #3 packet 03/04/22 Diet: NPO Activity: Bedrest Followup: NONE,NONE [Primary Care Provider] - Time spent managing pt's care (in minutes): 60
[2022-03-08] MEDS ORDERED: NOREPINEPHRINE IV SCH (12:00)
[2022-03-08] MEDS ORDERED: D5W IV SCH (12:00)
[2022-03-08] MEDS ORDERED: HYDROCORTISONE SUC 100 MG INJ IV SCH (12:00)
[2022-03-08 12:20] VITALS: O2SAT 97; BMI 38.2
[2022-03-08] MEDS ORDERED: D5W 1,000 ML IV ONE (13:23)
[2022-03-08] MEDS ORDERED: SODIUM BICARB 50 MEQ/50ML VIAL ONE (13:28)
--- NOTE | 2022-03-08 13:33 | RAD REPORT ---
EXAM DESCRIPTION: Carlos A Single View03/08/2022 1:24 pm CLINICAL HISTORY: Post code. Respiratory distress COMPARISON: March 08, 2022 FINDINGS: Endotracheal and nasogastric tubes in good position. Artifact overlies the chest obscuring detail somewhat. Small left and small to moderate right pleural effusions with basilar atelectasis. Mild right pulmonary opacities. Cardiomegaly. Pacemaker leads in place. No pneumothorax seen
[2022-03-08] MEDS ORDERED: Caclcium Chloride 10% INJ SYR IV ONE (13:34)
[2022-03-08] MEDS ORDERED: EPINEPHrine 1 MG/10 ML SYR IV ONE (13:34)
[2022-03-08] MEDS ORDERED: SODIUM CHL 0.9% 500 ML BAG IV ONE (13:34)
--- NOTE | 2022-03-08 14:22 | P.PN ---
Date of Service: 03/08/22 Carson Licona called at 13:04. I arrived at bedside shortly after. She was laying on Life Flight stretcher and CPR was in progress. CPR was being delivered by [facility] [employer] [facility] personnel. Her initial rhythm was asystole and converted to pulseless electrical activity. She received calcium chloride, multiple rounds of epinephrine, and multiple rounds of bicarbonate. At 13:10, return of spontaneous circulation was achieved. Initially, SpO2 readings were 43 %; however, after respiratory therapy completed airway suctioning, her SpO2 quickly returned to the upper 90s. On post-code exam, she now demonstrates a new right-pupillary dilatation. I am highly concerned that she may have intracranial bleeding, but she is not stable enough to lay in the CT machine. Additionally, we do not have Neurosurgery available should she have an intracranial bleed. I had a detailed discussion with her multiple family members present at bedside. I outlined my concerns regarding her prognosis and my differential diagnoses. I have explained to them that I believe her prognosis is grim at this time. They verbalized understanding and stated that they wish to proceed with aggressive management. She was taken by [employer] to [facility]. I called and updated Dr. Lin ([facility] ICU). She recommended that she receive two more amps of bicarbonate. I called annual greenhouse manager, Natan, who stated that he will call [employer] and provide them these instructions. Issac Salazar M.D.
[2022-03-08 16:31] LABS: Arterial Blood Carboxyhemoglob 0.7 % (0-1.5); Blood Gas Oxyhemoglobin 51.4 % (94-97); Blood O2 Saturation 52.4 % (92-98.5)
--- NOTE | 2022-03-09 16:00 | EKG ---
Test Date: 2022-03-08 Test Time: 02:07:00 Information Security Associate: SHANNA MEASUREMENT RESULTS: Intervals: Rate: 121 AK: QRSD: 174 QT: 412 QTc: 585 [place]: P: AK: QRS: -51 T: 98 INTERPRETIVE STATEMENTS: Wide QRS tachycardia Right bundle branch block Left anterior fascicular block Bifascicular block Septal infarct, age undetermined T wave abnormality, consider lateral ischemia Abnormal ECG Compared to ECG 02/25/2022 14:24:42 Wide-QRS tachycardia now present Left anterior fascicular block now present Bifascicular block now present T-wave abnormality now present Possible ischemia now present Electronically Signed On 03-09-22 15:57:49 CDT by Reji Henriquez
--- NOTE | 2022-03-10 19:46 | RAD REPORT ---
EXAM DESCRIPTION: RAD - Chest Single View - 03/08/2022 2:09 am CLINICAL HISTORY: 76 years, Female, SOB COMPARISON: None FINDINGS: Single view of the chest was obtained portable. No prior films are available for compariso n. The cardiomediastinal silhouette demonstrate to be unremarkable. The lung volume is decreased. The heart is prominent. The thoracic aorta is unremarkable. There is is dual lead pacemaker via left sub clavian. Small bilateral pleural effusions with compressive atelectatic changes/or infiltrates, sligh tly greater right than left. The rest of the soft tissue and bony structures demonstrate to be unre markable. IMPRESSION: Small bilateral pleural effusions with compressive atelectatic changes/or infiltrates, s lightly greater right than left. Cardiomegaly. Electronically signed by: Blu Bo MD 03/08/2022 3:11 AM CDT Due to temporary technical issues with the PACS/Fluency reporting system, reports are being signed by the in house radiologists without review as a courtesy to insure prompt reporting. The interpreting radiologist is fully responsible for the content of the report.
--- NOTE | 2022-03-12 06:07 | EKG ---
Test Date: 2022-03-08 Test Time: 10:00:28 Heart Doctor: GUIDO MEASUREMENT RESULTS: Intervals: Rate: 103 [place]: QRSD: 188 QT: 430 QTc: 563 [place]: P: [place]: QRS: -61 T: 97 INTERPRETIVE STATEMENTS: Wide QRS rhythm Right bundle branch block Left anterior fascicular block Bifascicular block Septal infarct, age undetermined T wave abnormality, consider lateral ischemia Abnormal ECG Compared to ECG 03/08/2022 02:07:00 Uncertain supraventricular rhythm now present Wide-QRS tachycardia no longer present Bifascicular block still present Myocardial infarct finding still present T-wave abnormality still present Possible ischemia still present Electronically Signed On 03-12-22 06:00:40 CDT by Odilon Parisi
--- NOTE | 2022-03-28 18:54 | CON ---
Date of Consultation: 03/08/2022 Brief History Of Present Illness: The patient is a 76-year-old female. 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 S he additionally had CHF exacerbation and acute kidney injury and as such, she was being transferred t o the ICU. I was requested to place a central venous catheter as her IV access was tenuous at best. Past Medical History: Significant for chronic diastolic congestive heart failure, chronic atrial fib rillation, on anticoagulation, hypertension, diabetes, pulmonary hypertension, GERD, mastectomy, tuba l ligation, hysterectomy, tonsillectomy. Social History: She lives at home with her family. She denies smoking, alcohol, or recreational natalie g use. Allergies: TO AMLODIPINE, PENICILLIN, FLAGYL. Home Medications: Include Demadex, Eliquis, Toprol, Protonix, Cordarone, and sodium polystyrene sulf emilie. Review of Systems: 10-point review of systems; she has significant shortness of breath, particularly with exertion, orth opnea, edema. Physical Examination: General: At the time of my examination; she is awake and alert. She appears uncomfortable and is re quiring oxygen supplementation. She appears winded, but is conversive during our exam. HEENT: Her oropharynx is clear. Her mucous membranes are somewhat dry. Neck: Supple without JVD. Chest: Normal expansion and excursion. Skin: Her skin was somewhat diaphoretic. Laboratory Data: White blood cell count of 9.3, hemoglobin is 11.8, hematocrit of 35.6, platelet cou nt 407. Her chemistry showed a sodium of 123, potassium 5.2, chloride 97, carbon dioxide is 22, BUN 51, creatinine 3.1, glucose is 179. Lactic acid was 7.4. She had a chest x-ray on admission on 02/09, officially read as small bilateral pleural effusions with compressive atelectasis changes and/or i nfiltrates, slightly greater right than left, and cardiomegaly. Assessment And Plan: This is a 76-year-old female, who comes in with acute respiratory/congestive he art failure exacerbation and acute kidney injury. I have explained the risks, benefits, and alternat denton of placement of a central venous catheter for IV access including, but not limited to bleeding, infection, damage to surrounding tissues, need for further operation and procedures, the patient agre es to proceed as indicated. RADHA/AICHA Voice ID: [id number] Report ID: [id number]
== END 2022-03-08 13:35 | disposition short-term general hospital (02) | DRG 682 ==
LOC: ER 00:26 → ERHOLD 04:01 → 3RD-ICU 07:49
PROVIDERS: ADMIT Internal Medicine; ATTEND Internal Medicine
PROC: 5A1935Z Respiratory Ventilation, Less than 24 Consecutive Hours (ICD-10-PCS; principal; 2022-03-08)
PROC: 0BH17EZ Insertion of Endotracheal Airway into Trachea, Via Natural or Artificial Opening (ICD-10-PCS; 2022-03-08)
PROC: 05HY33Z Insertion of Infusion Device into Upper Vein, Percutaneous Approach (ICD-10-PCS; 2022-03-08)
DX: N17.9 Acute kidney failure, unspecified (principal); I46.9 Cardiac arrest, cause unspecified; I50.33 Acute on chronic diastolic (congestive) heart failure; R57.8 Other shock; E87.1 Hypo-osmolality and hyponatremia; E87.20 Acidosis, unspecified; E27.40 Unspecified adrenocortical insufficiency; I11.0 Hypertensive heart disease with heart failure; I48.0 Paroxysmal atrial fibrillation; K21.9 Gastro-esophageal reflux disease without esophagitis; E87.5 Hyperkalemia; I27.20 Pulmonary hypertension, unspecified; I08.1 Rheumatic disorders of both mitral and tricuspid valves; E11.65 Type 2 diabetes mellitus with hyperglycemia; D72.829 Elevated white blood cell count, unspecified; R31.29 Other microscopic hematuria; Z88.8 Allergy status to other drugs, medicaments and biological substances; Z88.0 Allergy status to penicillin; Z85.3 Personal history of malignant neoplasm of breast; Z85.89 Personal history of malignant neoplasm of other organs and systems; Z98.51 Tubal ligation status; Z90.10 Acquired absence of unspecified breast and nipple; Z79.01 Long term (current) use of anticoagulants; Z79.899 Other long term (current) drug therapy; Z90.710 Acquired absence of both cervix and uterus; Z20.822 Contact with and (suspected) exposure to COVID-19
CPT/HCPCS: 36415; 71045; 80048; 80076; 81015; 82533; 82805; 82947; 83605; 83735; 83880; 84100; 84484; 85025; 85610; 85730; 87040; 87077; 87086; 87088; 87186; 87811; 93005; 94002; 96365; 96366; 96375; 99285; J0171; J0282; J1720; J1815; J2250; J3475; J7040; J7050; J7060; J7120; J7613